=== PATIENT | male | born 1930 | race Caucasian/White ===

== ENCOUNTER 2017-02-03 07:50 | Emergency (ER) | payer MEDICARE, OTHER ==
[~2017-02-03] VITALS: Ht 180.3 cm; Wt 85.7 kg
[2017-02-03 08:30] LABS: BASOPHILS % (AUTO) 1 % (0-10); EOSINOPHILS # (AUTO) 0.3 10^3/uL (0.0-0.3); EOSINOPHILS % (AUTO) 5 % (0-10); LYMPHOCYTES # (AUTO) 1.1 X 10^3 (1.0-4.0); LYMPHOCYTES % (AUTO) 17 % (12-44); MEAN CORPUSCULAR HEMOGLOBIN 30 PG (25-34); MEAN CORPUSCULAR HGB CONC 34 G/DL (32-36); MEAN CORPUSCULAR VOLUME 87 FL (80-99); MEAN PLATELET VOLUME 8.6 FL (7.4-10.4); MONOCYTES # (AUTO) 0.4 X 10^3 (0.0-1.0); MONOCYTES % (AUTO) 7 % (0-12); NEUTROPHILS # (AUTO) 4.5 X 10^3 (1.8-7.8); NEUTROPHILS % (AUTO) 71 % (42-75); PLATELET COUNT 234 10^3/uL (130-400); RED BLOOD COUNT 4.27 10^6/uL (4.35-5.85); RED CELL DISTRIBUTION WIDTH 13.4 % (10.0-14.5); WHITE BLOOD COUNT 6.4 10^3/uL (4.3-11.0)
[2017-02-03 08:44] LABS: INR 1.1 (0.8-1.4)
[2017-02-03 08:53] LABS: ALANINE AMINOTRANSFERASE 21 U/L (0-55); ALBUMIN 3.5 G/DL (3.2-4.5); ANION GAP 10 MMOL/L (5-14); ASPARTATE AMINO TRANSFERASE 25 U/L (5-34); BILIRUBIN,TOTAL 0.6 MG/DL (0.1-1.0); BLOOD UREA NITROGEN 14 MG/DL (7-18); BUN/CREATININE RATIO 19; CALCIUM 9.1 MG/DL (8.5-10.1); CARBON DIOXIDE 27 MMOL/L (21-32); CHLORIDE 103 MMOL/L (98-107); CREATININE SERUM 0.74 MG/DL (0.60-1.30); GFR ESTIMATED > 60; GLUCOSE 104 MG/DL (70-105); POTASSIUM 3.2 MMOL/L (3.6-5.0); SODIUM 140 MMOL/L (135-145); TOTAL PROTEIN 6.6 G/DL (6.4-8.2)
--- NOTE | 2017-02-03 09:12 | Diagnostic Imaging Report ---
CLINICAL INDICATION: Patient complains of right-sided chest/rib pain. Patient states he fell while carrying a box. EXAM: Portable chest x-ray upright view. COMPARISON: None. FINDINGS: There is cardiomegaly. There is no significant pulmonary vascular congestion. There is suspected mild bibasilar atelectasis or scarring. There is minimal patchy airspace opacification overlying the right mid lung field, which may represent lung infiltrate or atelectasis or scarring. There is no pleural effusion or pneumothorax. There is no gross acute traumatic process seen. IMPRESSION: 1: Cardiomegaly with no significant pulmonary vascular congestion. 2: There is minimal airspace patchy opacification overlying the right mid lung field, which may represent lung infiltrate or atelectasis or scarring. 3: There is no gross acute traumatic process seen. Dictated by: Dictated on workstation # [id number]
[2017-02-03] MEDS: CATHETER FLUSH 10 ML SYR IV PRN (09:28)
[2017-02-03] MEDS: IOHEXOL 350 MG/ML 100 ML (OMNIPAQUE 350) VIAL IV ONE (09:28)
[2017-02-03] MEDS: NS 100 ML (IVPB) BAG IV ONE (09:28)
--- NOTE | 2017-02-03 09:37 | ED Fall/Injury ---
General Chief Complaint: Respiratory Problems Stated Complaint: SOA Nursing Triage Note: PT STATES HE FELL A COUPLE DAYS AGO WHILE CARRYING A BOX, CC OF SOB WITH RT RIB PAIN RATED AT 5. PT HAS BEEN ACTIVE AND DOING YARD WORK SINCE THE FALL. Source: patient Exam Limitations: no limitations History of Present Illness Time seen by provider: 07:59 Initial Comments This 86 year old presents to the emergency room with complaints of right upper quadrant pain after having a fall on Monday (4 days ago). He was carrying a box and fell onto the box. His pain has worsened since then. He also complains of pain with inspiration. This morning he woke and was dizzy upon rising, thinking he would pass out. He arrives with several family members. He also complains of soreness in the neck and shoulders. He denies hitting his head or injuring his neck. There was no loss of consciousness. He has no cervical tenderness to palpation. Patient does have atrial fibrillation for which he takes Eliquis. Allergies and Home Medications Allergies Coded Allergies: No Known Drug Allergies (Unverified , 02/03/17) Home Medications Hydrocodone/Acetaminophen 1 Each Tablet, 0.5-1 EACH PO Q6H PRN for PAIN, #10 Prescribed by: KY NAVARRO on 02/03/17 1203 Constitutional: no symptoms reported Eyes: No Symptoms Reported Ears, Nose, Mouth, Throat: no symptoms reported Respiratory: see HPI Cardiovascular: see HPI Gastrointestinal: see HPI Genitourinary: no symptoms reported Musculoskeletal: see HPI Skin: no symptoms reported Psychiatric/Neurological: No Symptoms Reported Past Ahjekky-Egdrai-Vyhszc Hx Patient Social History Recent Foreign Travel: No Contact w/Someone Who Travel: No Recent Infectious Disease Expo: No Surgeries HX Surgeries: Yes (dental surgery) Surgeries: Bladder Surgery (bladder stone removal), Eye Surgery (corneal transplants, cataracts), Gallbladder, Prostatectomy Respiratory Hx Respiratory Disorders: No Cardiovascular Hx Cardiac Disorders: Yes Cardiac Disorders: Atrial Fibrillation, High Cholesterol, Hypertension Neurological Hx Neurological Disorders: No Reproductive System Hx Reproductive Disorders: No Genitourinary Hx Genitourinary Disorders: Yes Genitourinary Disorders: Prostate Problems (prostate cancer, status post prostatectomy) Gastrointestinal Hx Gastrointestinal Disorders: No Musculoskeletal Hx Musculoskeletal Disorders: No Endocrine Hx Endocrine Disorders: No HEENT HX ENT Disorders: No Cancer Hx Cancer: No Psychosocial Hx Psychiatric Problems: No Integumentary HX Skin/Integumentary Disorder: No Physical Exam Vital Signs Vital Sign - Last 12Hours 02/03/17 07:59 Temp 97.9 Pulse 69 Resp 20 B/P (MAP) 157/90 Pulse Ox 96 O2 Delivery Room Air Capillary Refill : Less Than 3 Seconds General Appearance: WD/WN, no apparent distress HEENT: normal ENT inspection, pharynx normal, other Neck: non-tender, full range of motion, supple, normal inspection Cardiovascular: no edema, no murmur, irregularly irregular Respiratory: lungs clear, normal breath sounds, no respiratory distress, no accessory muscle use Gastrointestinal: normal bowel sounds, soft, tenderness (very tender throughout the abdomen especially in the right upper quadrant) Extremities: normal inspection, no pedal edema, pelvis stable Neurologic/Psychiatric: traffic control flagger II-XII nml as tested, no motor/sensory deficits, alert, normal mood/affect, oriented x 3 Skin: normal color, warm/dry Tyler Coma Score Best Eye Response: (4) Open Spontaneously Best Verbal Response: (5) Oriented Best Motor Response: (6) Obeys Commands [place] Total: 15 Progress/Results/Core Measures Results/Orders Lab Results Laboratory Tests Test 02/03/17 08:20 02/03/17 10:15 Range/Units White Blood Count 6.4 4.3-11.0 10^3/uL Red Blood Count 4.27 L 4.35-5.85 10^6/uL Hemoglobin 12.6 L 13.3-17.7 G/DL Hematocrit 37 L 40-54 % Mean Corpuscular Volume 87 80-99 FL Mean Corpuscular Hemoglobin 30 25-34 PG Mean Corpuscular Hemoglobin Concent 34 32-36 G/DL Red Cell Distribution Width 13.4 10.0-14.5 % Platelet Count 234 130-400 10^3/uL Mean Platelet Volume 8.6 7.4-10.4 FL Neutrophils (%) (Auto) 71 42-75 % Lymphocytes (%) (Auto) 17 12-44 % Monocytes (%) (Auto) 7 0-12 % Eosinophils (%) (Auto) 5 0-10 % Basophils (%) (Auto) 1 0-10 % Neutrophils # (Auto) 4.5 1.8-7.8 X 10^3 Lymphocytes # (Auto) 1.1 1.0-4.0 X 10^3 Monocytes # (Auto) 0.4 0.0-1.0 X 10^3 Eosinophils # (Auto) 0.3 0.0-0.3 10^3/uL Basophils # (Auto) 0.0 0.0-0.1 10^3/uL Prothrombin Time 14.0 12.2-14.7 SEC INR Comment 1.1 0.8-1.4 Activated Partial Thromboplast Time 33 24-35 SEC Sodium Level 140 135-145 MMOL/L Potassium Level 3.2 L 3.6-5.0 MMOL/L Chloride Level 103 98-107 MMOL/L Carbon Dioxide Level 27 21-32 MMOL/L Anion Gap 10 5-14 MMOL/L Blood Urea Nitrogen 14 7-18 MG/DL Creatinine 0.74 0.60-1.30 MG/DL Estimat Glomerular Filtration Rate > 60 BUN/Creatinine Ratio 19 Glucose Level 104 70-105 MG/DL Calcium Level 9.1 8.5-10.1 MG/DL Total Bilirubin 0.6 0.1-1.0 MG/DL Aspartate Amino Transf (AST/SGOT) 25 5-34 U/L Alanine Aminotransferase (ALT/SGPT) 21 0-55 U/L Alkaline Phosphatase 74 40-136 U/L Troponin I < 0.30 <0.30 NG/ML Total Protein 6.6 6.4-8.2 G/DL Albumin 3.5 3.2-4.5 G/DL Urine Color YELLOW Urine Clarity CLEAR Urine pH 8 5-9 Urine Specific [place] 1.010 L 1.016-1.022 Urine Protein 1+ H NEGATIVE Urine Glucose (UA) NEGATIVE NEGATIVE Urine Ketones NEGATIVE NEGATIVE Urine Nitrite NEGATIVE NEGATIVE Urine Bilirubin NEGATIVE NEGATIVE Urine Urobilinogen NORMAL NORMAL MG/DL Urine Leukocyte Esterase NEGATIVE NEGATIVE Urine RBC (Auto) 3+ H NEGATIVE Urine RBC 2-5 H /HPF Urine WBC NONE /HPF Urine Squamous Epithelial Cells 2-5 /HPF Urine Crystals NONE /LPF Urine Bacteria NEGATIVE /HPF Urine Casts NONE /LPF Urine Mucus NEGATIVE /LPF Urine Culture Indicated NO My Orders Orders - KY MANZO MD Cbc With Automated Diff (02/03/17 08:08) Comprehensive Metabolic Panel (02/03/17 08:08) Protime With Inr (02/03/17 08:08) Partial Thromboplastin Time (02/03/17 08:08) Ua Culture If Indicated (02/03/17 08:08) Saline Lock/Iv-Start (02/03/17 08:08) Ekg Tracing (02/03/17 08:08) Monitor-Rhythm Ecg Trace Only (02/03/17 08:08) Chest 1 View, Ap/Pa Only (02/03/17 08:08) Ct Chest/Abdomen/Pelvis W (02/03/17 09:02) Ns W/Kcl 20 Meq/L (Ns Iv W/Kcl 20 Meq/L) (02/03/17 09:15) Iohexol Injection (Omnipaque 350 Mg/Ml 1 (02/03/17 09:15) Sodium Chloride Flush (Catheter Flush Sy (02/03/17 09:15) Ns (Ivpb) (Sodium Chloride 0.9% Ivpb Bag (02/03/17 09:15) Troponin I (02/03/17 10:13) Medications Given in ED Current Medications Medications Dose Ordered Sig/Maylin Route Start Time Stop Time Status Last Admin Dose Admin Iohexol 100 ml ONCE ONCE IV 02/03/17 09:15 02/03/17 09:17 DC 02/03/17 09:28 100 ML Sodium Chloride 10 ml NEEDED PRN IV 02/03/17 09:15 02/03/17 15:32 DC 02/03/17 09:28 10 ML Sodium Chloride 100 ml ONCE ONCE IV 02/03/17 09:15 02/03/17 09:17 DC 02/03/17 09:28 80 ML Vital Signs/I&O Vital Sign - Last 12Hours 02/03/17 02/03/17 07:59 12:12 Temp 97.9 97.9 Pulse 69 70 Resp 20 20 B/P (MAP) 157/90 Pulse Ox 96 97 O2 Delivery Room Air Blood Pressure Mean: 112 Progress Note : Progress Note Patient received a liter of normal saline with 20 mEq of potassium. He felt better upon standing after IV hydration. Incidental findings on CT scan were discussed. Patient was advised to follow closely with his urologist regarding the bladder wall thickness. The pericardial finding is chronic when compared to prior imaging. No definite etiology for patient's abdominal pain was found. CT imaging was discussed with Dr. Bowling and with the radiologist. No indication for admission or surgical intervention was found. There was question of constipation based on stool burden but patient states he has actually had diarrhea the past few days. Patient was dismissed home into the care of his family. A CD of his images was given upon dismissal for presentation to his urologist. ECG Initial ECG Impression Date: Feb 03, 2017 Initial ECG Impression Time: 09:45 Initial ECG Rate: 70 Initial ECG Rhythm: A Fib/Flutter Comment Atrial fibrillation with no ST elevation or depression. Right bundle branch block. PVCs noted. No prior for comparison. Diagnostic Imaging Diagonstic Imaging: Xray Plain Films/CT/US/NM/MRI: chest Comments Chest x-ray viewed by me and report reviewed. See report below: NAME: ANABEL DE LA CRUZ MED REC#: [id number] PT STATUS: REG ER : 1930 PHYSICIAN: KY MANZO MD ADMIT DATE: 02/03/17/ER Draft Date of Exam:02/03/17 CHEST 1 VIEW, AP/PA ONLY CLINICAL INDICATION: Patient complains of right-sided chest/rib pain. Patient states he fell while carrying a box. EXAM: Portable chest x-ray upright view. COMPARISON: None. FINDINGS: There is cardiomegaly. There is no significant pulmonary vascular congestion. There is suspected mild bibasilar atelectasis or scarring. There is minimal patchy airspace opacification overlying the right mid lung field, which may represent lung infiltrate or atelectasis or scarring. There is no pleural effusion or pneumothorax. There is no gross acute traumatic process seen. IMPRESSION: 1: Cardiomegaly with no significant pulmonary vascular congestion. 2: There is minimal airspace patchy opacification overlying the right mid lung field, which may represent lung infiltrate or atelectasis or scarring. 3: There is no gross acute traumatic process seen. Dictated on workstation # [id number] Dict: 02/03/17 0857 Trans: 02/03/17 0911 [facility] [id number] Interpreted by: SOURAV DU MD Diagonstic Imaging: CT Plain Films/CT/US/NM/MRI: chest, abdomen, pelvis Comments CT chest, abdomen and pelvis viewed by me and report reviewed. See report below : NAME: ANABEL DE LA CRUZ MED REC#: [id number] PT STATUS: REG ER : 1930 PHYSICIAN: KY MANZO MD ADMIT DATE: 02/03/17/ER Draft Date of Exam:02/03/17 CT CHEST/ABDOMEN/PELVIS W PROCEDURE: CT chest, abdomen, and pelvis with contrast. TECHNIQUE: Multiple contiguous axial images were obtained through the chest, abdomen, and pelvis after the administration of intravenous contrast. INDICATION: Recent fall now with right-sided pain. Difficulty breathing. History of prostate cancer. Comparison: 05/26/2016 and 07/09/2014 FINDINGS: CT chest: Cardio mediastinal structures show moderate cardio megaly. There is calcified aortic and coronary atherosclerosis. Note is made of focal prominence of pericardial fluid versus pericardial cyst on the right. It measures 5.8 x 3.5 cm. This is increased compared to 5.1 x 2.9 cm, otherwise has a persistent simple appearance. Multiple calcified bilateral hilar and mediastinal lymph nodes are noted. No pathologically enlarged or morphologically abnormal adenopathy is seen. Lung windows show small right effusion. There is no pneumothorax on either side. A few scattered calcified pulmonary parenchyma granuloma are also noted. Small noncalcified subpleural micronodule is noted within the lateral margins of the left upper lobe just anterior to the major fissure. This is stable compared to 07/09/2014. Evaluation for additional micronodule is somewhat suboptimal given the bilateral dependent posterior atelectasis, but aerated portions of the lungs show no discrete pulmonary parenchymal masses. Evaluation of osseous structures demonstrates compression deformities of the superior endplates of the T9 and T11 vertebral bodies. T11 is stable compared to 05/26/2016. The T9 level is not well visualized on prior exams. CT abdomen: There is colonic diverticulosis, no CT evidence of acute diverticulitis. Small bowel loops are nondistended. Normal appendix is identified. Benign left renal cyst is noted. Otherwise, the kidneys, adrenal glands, spleen, and pancreas have a normal CT appearance. There is prominence of the intra-and extra hepatic biliary ductal system. Patient is however status post previous cholecystectomy. Small hypodensity is noted within the anterior margins of segment IVb. This is stable compared to 07/09/2014. Otherwise, liver is unremarkable as well. There is no loculated fluid collection, free fluid, nor free air within the abdomen. No abnormal mesenteric or retroperitoneal adenopathy is seen. There is diffuse calcified aortic and coronary atherosclerosis. Bony structures show no acute abnormalities. CT pelvis: Urinary bladder wall is moderately thickened. Bulky calcification is again noted on the right. There is rounded soft tissue prominent appearance anteriorly. There is trace free fluid within the pelvis. There is no loculated fluid collection or free air. No abnormal lymph nodes are seen. Bony structures show no acute abnormalities. IMPRESSION: 1. Small amount of free fluid within the lower pelvis. Exact etiology is indeterminate, but should be considered abnormal in a male patient. The fluid is of low density. Hemoperitoneum is felt to be unlikely. 2. Cardiomegaly. 3. Small right effusion. 4. Focal prominence of pericardial fluid the right lateral heart versus pericardial cyst. 5. Colonic diverticulosis, but no CT evidence of acute diverticulitis. 6. Simple appearing left renal cyst. 7. Thickened appearance of the urinary bladder wall with more masslike area seen anteriorly near the dome. This may be artifact, but one cannot exclude underlying neoplasm. Correlation with direct visualization is recommended. Dictated on workstation # [id number] Dict: 02/03/17 0942 Trans: 02/03/17 1003 [facility] [id number] Interpreted by: LUCAS GILLESPIE Departure Impression Impression: Primary Impression: Fall on same level Qualified Codes: W18.30XA - Fall on same level, unspecified, initial encounter Additional Impressions: Hypokalemia Abdominal wall pain Lightheadedness Chronic anticoagulation Bladder wall thickening Pericardial cyst Disposition: 01 HOME, SELF-CARE Condition: Improved Departure-Patient Inst. Decision time for Depature: 12:00 Referrals: STEFANO ARREAGA DO (PCP/Family) Primary Care Physician Patient Instructions: Hypokalemia Add. Discharge Instructions: You may use the hydrocodone pain medication as prescribed. Please be aware this may cause constipation. Use a stool softener and/or MiraLAX (generic is polyethylene glycol) as needed for constipation. Follow-up with your urologist as soon as possible regarding the CT findings. Take the CD of your CT images with you. Drink plenty of clear liquids to stay well-hydrated. Eat a well-balanced diet. Follow-up with your primary care provider soon as possible. Return to the emergency room if symptoms worsen. All discharge instructions reviewed with patient and/or family. Voiced understanding. Scripts Hydrocodone/Acetaminophen (Hydrocodon -Acetaminophen 5-325) 1 Each Tablet 0.5-1 EACH PO Q6H Y for PAIN, #10 TAB Prov: KY MANZO MD 02/03/17 Copy Copies To 1: STEFANO ARREAGA JOSHUA T MD Feb 03, 2017 09:37
[2017-02-03] MEDS: NS W/KCL 20 MEQ/L 1,000 ML IV SCH (09:46)
--- NOTE | 2017-02-03 10:04 | Diagnostic Imaging Report ---
PROCEDURE: CT chest, abdomen, and pelvis with contrast. TECHNIQUE: Multiple contiguous axial images were obtained through the chest, abdomen, and pelvis after the administration of intravenous contrast. INDICATION: Recent fall now with right-sided pain. Difficulty breathing. History of prostate cancer. Comparison: 05/26/2016 and 07/09/2014 FINDINGS: CT chest: Cardio mediastinal structures show moderate cardio megaly. There is calcified aortic and coronary atherosclerosis. Note is made of focal prominence of pericardial fluid versus pericardial cyst on the right. It measures 5.8 x 3.5 cm. This is increased compared to 5.1 x 2.9 cm, otherwise has a persistent simple appearance. Multiple calcified bilateral hilar and mediastinal lymph nodes are noted. No pathologically enlarged or morphologically abnormal adenopathy is seen. Lung windows show small right effusion. There is no pneumothorax on either side. A few scattered calcified pulmonary parenchyma granuloma are also noted. Small noncalcified subpleural micronodule is noted within the lateral margins of the left upper lobe just anterior to the major fissure. This is stable compared to 07/09/2014. Evaluation for additional micronodule is somewhat suboptimal given the bilateral dependent posterior atelectasis, but aerated portions of the lungs show no discrete pulmonary parenchymal masses. Evaluation of osseous structures demonstrates compression deformities of the superior endplates of the T9 and T11 vertebral bodies. T11 is stable compared to 05/26/2016. The T9 level is not well visualized on prior exams. CT abdomen: There is colonic diverticulosis, no CT evidence of acute diverticulitis. Small bowel loops are nondistended. Normal appendix is identified. Benign left renal cyst is noted. Otherwise, the kidneys, adrenal glands, spleen, and pancreas have a normal CT appearance. There is prominence of the intra-and extra hepatic biliary ductal system. Patient is however status post previous cholecystectomy. Small hypodensity is noted within the anterior margins of segment IVb. This is stable compared to 07/09/2014. Otherwise, liver is unremarkable as well. There is no loculated fluid collection, free fluid, nor free air within the abdomen. No abnormal mesenteric or retroperitoneal adenopathy is seen. There is diffuse calcified aortic and coronary atherosclerosis. Bony structures show no acute abnormalities. CT pelvis: Urinary bladder wall is moderately thickened. Bulky calcification is again noted on the right. There is rounded soft tissue prominent appearance anteriorly. There is trace free fluid within the pelvis. There is no loculated fluid collection or free air. No abnormal lymph nodes are seen. Bony structures show no acute abnormalities. IMPRESSION: 1. Small amount of free fluid within the lower pelvis. Exact etiology is indeterminate, but should be considered abnormal in a male patient. The fluid is of low density. Hemoperitoneum is felt to be unlikely. 2. Cardiomegaly. 3. Small right effusion. 4. Focal prominence of pericardial fluid the right lateral heart versus pericardial cyst. 5. Colonic diverticulosis, but no CT evidence of acute diverticulitis. 6. Simple appearing left renal cyst. 7. Thickened appearance of the urinary bladder wall with more masslike area seen anteriorly near the dome. This may be artifact, but one cannot exclude underlying neoplasm. Correlation with direct visualization is recommended. 8. Indeterminate compression deformity of T9. If there is concern for acute compression fracture, MRI is recommended. 9. Nonacute compression deformity of T11. Dictated by: Dictated on workstation # [id number]
[2017-02-03 10:28] LABS: BILIRUBIN,URINE NEGATIVE (NEGATIVE); KETONES,URINE NEGATIVE (NEGATIVE); LEUKOCYTE ESTERASE ,URINE NEGATIVE (NEGATIVE); NITRITE,URINE NEGATIVE (NEGATIVE); PH,URINE 8 (5-9); PROTEIN,URINE 1+ (NEGATIVE); UROBILINOGEN,URINE NORMAL (NORMAL)
[2017-02-03] MEDS ORDERED: HYDR-3812 PO (12:03)
[2017-02-03 12:12] VITALS: BP 145/87
== END 2017-02-03 12:12 | disposition home or self-care (01) ==
LOC: EDUNIT# 07:50 → ER 07:52
DX: S39.91XA Unspecified injury of abdomen, initial encounter (principal); R10.11 Right upper quadrant pain; E87.6 Hypokalemia; R42 Dizziness and giddiness; I31.8 Other specified diseases of pericardium; N32.9 Bladder disorder, unspecified; N20.0 Calculus of kidney; I51.7 Cardiomegaly; I45.10 Unspecified right bundle-branch block; I48.2 Chronic atrial fibrillation; K57.30 Diverticulosis of large intestine without perforation or abscess without bleeding; Z79.01 Long term (current) use of anticoagulants; W18.09XA Striking against other object with subsequent fall, initial encounter; Y92.009 Unspecified place in unspecified non-institutional (private) residence as the place of occurrence of the external cause; Y99.8 Other external cause status
CPT/HCPCS: 36415; 71010; 71260; 74177; 80053; 81000; 84484; 85025; 85610; 85730; 93041

== ENCOUNTER → 2017-03-02 | Outpatient (CLI) | payer MEDICARE, OTHER ==
[~2017-03-02] MED LIST: HYDR-3812 PO
--- NOTE | 2017-03-02 18:56 | Diagnostic Imaging Report ---
EXAMINATION: Whole body bone scan. TECHNIQUE: After the intravenous administration of 25.6 mCi of Technetium 99m MDP, whole body delayed phase bone scan images were obtained with lateral views of the head and neck and the chest regions. INDICATION: Prostate cancer. FINDINGS: There is moderate increased activity seen in the adjacent right ribs, anteriorly, which appear to involve the third, fourth, fifth and sixth right ribs. This is probably a traumatic pattern of uptake. Correlation with the 02/03/2017 CT scan demonstrates no definite rib fractures. This is still favored to be traumatic related, possibly related to occult fractures or injury happening after that CT was obtained. The spine demonstrates only mild the activity in the cervical segments and around the thoracolumbar junction, probably degenerative. Other degenerative activity in joints is seen. There is urinary tract excretion noted. IMPRESSION: Moderate foci of activity along the anterior mid right ribs is favored to be posttraumatic related. Dictated by: Dictated on workstation # [id number]
== END ==
LOC: CARD 11:57
DX: C61 Malignant neoplasm of prostate (principal)
CPT/HCPCS: 78306

== ENCOUNTER → 2018-05-11 | Outpatient (CLI) | payer MEDICARE, OTHER ==
[~2018-05-11] MED LIST changes: +ACHD5005 PO; -HYDR-3812 PO
--- NOTE | 2018-05-11 12:11 | Diagnostic Imaging Report ---
INDICATION: Abdominal pain and diarrhea. Supine upright abdominal films are obtained at 12:02 p.m. FINDINGS: There is no evidence of free intraperitoneal air. There is gas distention of large and small bowel loops with scattered fluid levels in small bowel, findings may represent gastroenteritis. Suggest followup as clinically warranted. There is gas throughout the colon down to the rectum. IMPRESSION: No evidence of free air. There is gas and fluid levels in large and small bowel, probably secondary to gastroenteritis or ileus. There is no definite obstruction. Consider followup as clinically warranted. Dictated by: Dictated on workstation # [id number]
--- NOTE | 2018-05-11 12:23 | Diagnostic Imaging Report ---
INDICATION: Left upper quadrant pain. Sonographic interrogation of left quadrant was performed. Spleen measures 7.3 x 3.7 x 3.5 cm, within normal limits. Left kidney measures 10.7 x 5.8 x 5.1 cm. There is a cyst involving the left kidney measuring 4.6 x 3.0 x 3.8 cm. No calculi or hydronephrosis is identified. There is no ascites. IMPRESSION: Left renal cyst. No other significant abnormality is detected. Dictated by: Dictated on workstation # [id number]
== END ==
LOC: RAD 11:06
PROVIDERS: ATTEND Nurse Practitioner Family
DX: N28.1 Cyst of kidney, acquired (principal); R19.7 Diarrhea, unspecified
CPT/HCPCS: 74019; 76705

== ENCOUNTER 2018-10-23 11:06 | Observation (INO) | payer MEDICARE, OTHER | END 2018-10-24 15:35 | disposition home or self-care (01) | LOC: 4TH 11:06 ==

== ENCOUNTER → 2020-01-31 | Outpatient (CLI) | payer MEDICARE ==
[~2020-01-31] MED LIST changes: +AMLO10TA7 PO; +APIX5TAB PO; +ASPI-808 PO; +BARIUM SUSPENSION 2.1% (VANILLA SILQ) 450 ML PO ONE; +BICA50TA5 PO; +CALC-6 PO; +CATHETER FLUSH 10 ML SYR IV PRN; +DOXY25TA50 PO; +FOSI40TA5 PO; +GLUC1CAP14 PO; +HOLD METFORMIN - RECEIVED CONTRAST 20 ML VIAL IV SCH; +HYDR25TA4 PO; +IOHEXOL 350 MG/ML 100 ML (OMNIPAQUE 350) VIAL IV ONE; +MULT1TAB69 PO; +NAPR220T66 PO; +NIAC500T24 PO; +NS 100 ML (IVPB) BAG IV ONE; +OMEP20CA18 PO; +POTA99TA21 PO; +PRED5DRO24 OU; +SIMV80TA21 PO; +TROS20TA3 PO
--- NOTE | 2020-01-31 10:15 | Diagnostic Imaging Report ---
PROCEDURE: CT abdomen and pelvis with and without contrast. TECHNIQUE: Precontrast acquisitions were acquired through the abdomen and pelvis. Multiple contiguous axial images were obtained through the abdomen and pelvis after the administration of intravenous contrast. Auto Exposure Controls were utilized during the CT exam to meet ALARA standards for radiation dose reduction. INDICATION: Prostate carcinoma, on immunotherapy. Correlation is made with prior CT from 02/03/2017. Imaging through the lung bases demonstrates minimal linear scarring or atelectasis bilateral lower lobes. Small cystic collection adjacent to the right heart is again noted but not entirely included on today's study. Small probable cyst in the liver is slightly larger at 12 mm compared with 10 mm. No new liver mass is detected. Gallbladder surgically absent. The bile ducts remain somewhat prominent but similar to prior exam. Pancreas and spleen are unremarkable. No adrenal mass is detected. Right kidney is unremarkable. Left kidney again demonstrates a cyst in the lower pole 3.9 cm compared with 3.4 cm. Aorta is heavily calcified but non-aneurysmal. No central retroperitoneal or mesenteric lymphadenopathy is identified. Small and large bowel loops appear nonobstructed. There is diverticulosis of the sigmoid and descending colon but no evidence of acute diverticulitis. No free fluid in the abdomen or pelvis is identified on today's exam. The bladder is decompressed. There is some trabeculation to the bladder. Calcification right aspect of the urinary bladder is again noted. Previously noted masslike density on prior CT is not appreciated on today's exam. No definite pelvic lymphadenopathy is detected. Bony structures are nonacute. IMPRESSION: 1. Slight increase in size of hepatic and left renal cysts when compared with study from 2017. No abdominal or pelvic lymphadenopathy or evidence of metastatic disease is detected. 2. Uncomplicated diverticulosis. 3. Bladder calculus and trabeculation with some generalized wall thickening. A discrete mass is not detected on today's study. Dictated by: Dictated on workstation # [id number]
--- NOTE | 2020-01-31 13:27 | Diagnostic Imaging Report ---
INDICATION: Prostate carcinoma. TECHNIQUE: Patient was administered 25.8 mCi technetium-99m MDP intravenously and whole-body imaging was performed after three-hour delay. COMPARISON: Correlation is made with prior whole-body bone scan from 03/02/2017. FINDINGS: There is normal uptake of activity by the axial and appendicular skeleton. There is uptake by the kidneys with excretion into the urinary bladder. Previously noted abnormal uptake involving right-sided ribs has resolved. No suspicious foci are seen to suggest osseous metastatic disease. IMPRESSION: No scintigraphic evidence of osseous metastatic disease. Dictated by: Dictated on workstation # [id number]
== END ==
LOC: CARD 08:54
PROVIDERS: ATTEND Urology
DX: C61 Malignant neoplasm of prostate (principal); K80.20 Calculus of gallbladder without cholecystitis without obstruction; N28.1 Cyst of kidney, acquired; K76.89 Other specified diseases of liver
CPT/HCPCS: 74178; 78306

== ENCOUNTER 2020-08-23 19:32 | Emergency (ER) | payer MEDICARE, OTHER ==
[~2020-08-23] VITALS: Ht 180.3 cm; Wt 81.2 kg
[~2020-08-23 19:32] MED LIST changes: +AMLO-251 PO; -AMLO10TA7 PO; -BARIUM SUSPENSION 2.1% (VANILLA SILQ) 450 ML PO ONE; -CALC-6 PO; +CALC1TAB84 PO; -CATHETER FLUSH 10 ML SYR IV PRN; -HOLD METFORMIN - RECEIVED CONTRAST 20 ML VIAL IV SCH; -IOHEXOL 350 MG/ML 100 ML (OMNIPAQUE 350) VIAL IV ONE; +MULT-567 PO; -MULT1TAB69 PO; -NS 100 ML (IVPB) BAG IV ONE
[2020-08-23] MEDS ORDERED: NS IV 1000 ML 1,000 ML IV SCH (20:15)
[2020-08-23 20:23] LABS: BASOPHILS # (AUTO) 0.1 10^3/uL (0.0-0.1); BASOPHILS % (AUTO) 0 % (0-10); EOSINOPHILS # (AUTO) 0.2 10^3/uL (0.0-0.3); EOSINOPHILS % (AUTO) 1 % (0-10); HEMATOCRIT 45 % (40-54); HEMOGLOBIN 14.9 g/dL (13.3-17.7); LYMPHOCYTES # (AUTO) 1.2 10^3/uL (1.0-4.0); LYMPHOCYTES % (AUTO) 9 % (12-44); MEAN CORPUSCULAR HEMOGLOBIN 30 pg (25-34); MEAN CORPUSCULAR HGB CONC 33 g/dL (32-36); MEAN CORPUSCULAR VOLUME 91 fL (80-99); MEAN PLATELET VOLUME 8.8 fL (9.0-12.2); MONOCYTES # (AUTO) 0.5 10^3/uL (0.0-1.0); MONOCYTES % (AUTO) 4 % (0-12); NEUTROPHILS % (AUTO) 85 % (42-75); PLATELET COUNT 320 10^3/uL (130-400); WHITE BLOOD COUNT 12.9 10^3/uL (4.3-11.0)
[2020-08-23 20:24] LABS: ALBUMIN 3.7 GM/DL (3.2-4.5); CHLORIDE 99 MMOL/L (98-107); POTASSIUM 3.8 MMOL/L (3.6-5.0); SODIUM 135 MMOL/L (135-145)
[2020-08-23 20:26] LABS: CALCIUM 9.5 MG/DL (8.5-10.1)
[2020-08-23 20:27] LABS: GLUCOSE 228 MG/DL (70-105); TOTAL PROTEIN 6.9 GM/DL (6.4-8.2)
[2020-08-23 20:28] LABS: CARBON DIOXIDE 23 MMOL/L (21-32)
[2020-08-23 20:29] LABS: BILIRUBIN,TOTAL 0.5 MG/DL (0.1-1.0)
[2020-08-23 20:30] LABS: ALKALINE PHOSPHATASE 56 U/L (40-136); CREATININE SERUM 0.91 MG/DL (0.60-1.30); GFR ESTIMATED > 60
[2020-08-23] MEDS ORDERED: LOPERAMIDE 2 MG (IMODIUM) TABLET PO ONE (20:30)
[2020-08-23 20:31] LABS: BUN/CREATININE RATIO 16
[2020-08-23 20:33] LABS: ALANINE AMINOTRANSFERASE 12 U/L (0-55)
[2020-08-23 21:19] LABS: BILIRUBIN,URINE NEGATIVE (NEGATIVE); CLARITY,URINE SL CLOUDY; COLOR,URINE YELLOW; GLUCOSE, URINE (UA) NEGATIVE (NEGATIVE); KETONES,URINE NEGATIVE (NEGATIVE); LEUKOCYTE ESTERASE ,URINE NEGATIVE (NEGATIVE); NITRITE,URINE NEGATIVE (NEGATIVE); PH,URINE 5.5 (5-9); PROTEIN,URINE TRACE (NEGATIVE)
[2020-08-23 21:27] LABS: BACTERIA,URINE NEGATIVE /HPF; RBC,URINE RARE /HPF
[2020-08-23 21:30] VITALS: BP 121/73
--- NOTE | 2020-08-23 21:51 | ED GI ---
General Chief Complaint: Abdominal/GI Problems Stated Complaint: DIARRHEA; ABD BLOATING Nursing Triage Note: PT AMBULATES TO ROOM #7 WITH C/O NAUESA, DIARRHEA, ET BILAT LOWER ABD DISCOMFORT. REPORTS S/S BEGAN ON THIS DAY AT APPROX 1500 AFTER EATING LETTUCE FOR LUNCH. DENIES FEVER, CHILLS, COUGH, CONGESTION, OR SOA. DENIES ANY KNOWN COVID-19 EXPOSURE. A&OX4. Sepsis Screen: No Definite Risk History of Present Illness Date Seen by Provider: Aug 23, 2020 Time Seen by Provider: 19:50 Initial Comments 89-year-old male reports that approximately 1500 he began having diarrhea, he had had lettuce for lunch. Since his laparoscopic cholecystectomy he has issues with lettuce. He had approximately 6-7 loose stools and was concerned about dehydration. He has been taking sips of Sprite. He denies any nausea. He has not taken any medication for diarrhea. He denies any abdominal pain. He is on Eliquis, he has not noted any blood in his stool. Timing/Duration: 4-6 Hours Severity/Quality: Moderate Associated Symptoms: No Back Pain, No Chest Pain, No Fever/Chills; Fatigue; No Headache, No Heartburn, No Nausea/Vomiting, No Shortness of Air, No Weakness Allergies and Home Medications Allergies Coded Allergies: No Known Drug Allergies (Unverified , 10/23/18) Home Medications Amlodipine Besylate 10 Mg Tablet, 10 MG PO DAILY, (Reported) Apixaban 5 Mg Tablet, 5 MG PO BID, (Reported) Bicalutamide 50 Mg Tablet, 50 MG PO DAILY, (Reported) Calcium Carbonate/Vitamin D3 1 Each Tablet, 1 TAB PO DAILY, (Reported) Fosinopril Sodium 40 Mg Tablet, 20 MG PO DAILY, (Reported) TAKES 1/2 (40MG) TABLET Gluc HCl/Csa/Osmin Hy/Hyalur AC 1 Each Capsule, 1 CAP PO DAILY, (Reported) Hydrochlorothiazide 25 Mg Tablet, 25 MG PO Q48H, (Reported) Multivitamin 1 Each Tablet, 1 TAB PO DAILY, (Reported) Omeprazole 20 Mg Capsule.dr, 40 MG PO DAILY, (Reported) TAKES 2 (20MG) CAPSULES Potassium Gluconate 99 Mg Tablet, 99 MG PO DAILY, (Reported) Prednisolone Acetate/Pf 5 Ml Drops.susp, 1 DROP OU BID, (Reported) Simvastatin 80 Mg Tablet, 40 MG PO HS, (Reported) TAKES 1/2 (80MG) TABLET Trospium Chloride 20 Mg Tablet, 20 MG PO HS, (Reported) Patient Home Medication List Home Medication List Reviewed: Yes Review of Systems Review of Systems Constitutional: no symptoms reported, see HPI Gastrointestinal: See HPI; Denies Abdominal Pain, Denies Constipated; Diarrhea; Denies Nausea, Denies Rectal Bleeding, Denies Vomiting All Other Systems Reviewed Negative Unless Noted: Yes Past Kmhohga-Rekwbc-Smcidr Hx Past Med/Social Hx: Reviewed Nursing Past Med/Soc Hx Patient Social History Alcohol Use: Denies Use Number of Drinks Today: GG Alcohol Beverage of Choice: Whiskey Recreational Drug Use: No Smoking Status: Never a Smoker 2nd Hand Smoke Exposure: No Recent Foreign Travel: No Contact w/Someone Who Travel: No Recent Infectious Disease Expo: No Recent Hopitalizations: No Immunizations Up To Date Tetanus Booster (TDap): Unknown Date of Pneumonia Vaccine: Jun 21, 2018 Date of Influenza Vaccine: Jun 21, 2018 Seasonal Allergies Seasonal Allergies: No Past Medical History Surgeries: Yes (dental surgery, kidney stones) Bladder Surgery, Eye Surgery, Gallbladder, Prostatectomy Respiratory: No Currently Using CPAP: No Currently Using BIPAP: No Cardiac: Yes (disputed irregular heart beat) Atrial Fibrillation, High Cholesterol, Hypertension Neurological: No Reproductive Disorders: No Sexually Transmitted Disease: No HIV/AIDS: No Genitourinary: Yes Benign Prostatic Hyperpl, Prostate Problems, Kidney Stones Gastrointestinal: No Gastroesophageal Reflux, Chronic Diarrhea, Irritable Bowel Musculoskeletal: Yes Arthritis Endocrine: No 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 Hearing Impairment: Hard of Hearing Cancer: Yes Prostate Did You Recieve Any Treatments: Yes What Type of Treatment Did You: Chemotherapy, Radiation, Surgical Intervention Psychosocial: No Integumentary: No Adverse Reaction/Blood Tranf: No Family Medical History FHx: heart disease Heart G8 BROTHER G8 SISTER Myocardial infarction 19 FATHER 19 MOTHER G8 BROTHER G8 SISTER Physical Exam Vital Signs Vital Signs - First Documented 08/23/20 19:50 Temp 35.8 Pulse 90 Resp 18 B/P (MAP) 125/87 (100) Pulse Ox 97 O2 Delivery Room Air Capillary Refill : Less Than 3 Seconds Height/Weight/BMI Height: 5'10.00" Weight: 177lbs. 8.0oz. [id number]; 24.00 BMI Method:Stated General Appearance: WD/WN, no apparent distress HEENT: PERRL/EOMI, normal ENT inspection, pharynx normal, other (Oral mucosa pink and moist) Neck: non-tender, full range of motion, supple, normal inspection Respiratory: chest non-tender, lungs clear, normal breath sounds Cardiovascular: normal peripheral pulses, regular rate, rhythm Gastrointestinal: normal bowel sounds, non tender, soft; No distended, No guarding, No rebound, No tenderness Extremities: normal range of motion, non-tender, normal capillary refill, pedal edema (1+) Back: normal inspection, no CVA tenderness, no vertebral tenderness Neurologic/Psychiatric: no motor/sensory deficits, alert, normal mood/affect, oriented x 3 Skin: normal color, warm/dry Progress/Results/Core Measures Results/Orders Lab Results Laboratory Tests Test 08/23/20 19:56 08/23/20 21:10 Range/Units White Blood Count 12.9 H 4.3-11.0 10^3/uL Red Blood Count 4.98 4.30-5.52 10^6/uL Hemoglobin 14.9 13.3-17.7 g/dL Hematocrit 45 40-54 % Mean Corpuscular Volume 91 80-99 fL Mean Corpuscular Hemoglobin 30 25-34 pg Mean Corpuscular Hemoglobin Concent 33 32-36 g/dL Red Cell Distribution Width 13.5 10.0-14.5 % Platelet Count 320 130-400 10^3/uL Mean Platelet Volume 8.8 L 9.0-12.2 fL Immature Granulocyte % (Auto) 0 % Neutrophils (%) (Auto) 85 H 42-75 % Lymphocytes (%) (Auto) 9 L 12-44 % Monocytes (%) (Auto) 4 0-12 % Eosinophils (%) (Auto) 1 0-10 % Basophils (%) (Auto) 0 0-10 % Neutrophils # (Auto) 11.0 H 1.8-7.8 10^3/uL Lymphocytes # (Auto) 1.2 1.0-4.0 10^3/uL Monocytes # (Auto) 0.5 0.0-1.0 10^3/uL Eosinophils # (Auto) 0.2 0.0-0.3 10^3/uL Basophils # (Auto) 0.1 0.0-0.1 10^3/uL Immature Granulocyte # (Auto) 0.0 0.0-0.1 10^3/uL Sodium Level 135 135-145 MMOL/L Potassium Level 3.8 3.6-5.0 MMOL/L Chloride Level 99 98-107 MMOL/L Carbon Dioxide Level 23 21-32 MMOL/L Anion Gap 13 5-14 MMOL/L Blood Urea Nitrogen 15 7-18 MG/DL Creatinine 0.91 0.60-1.30 MG/DL Estimat Glomerular Filtration Rate > 60 BUN/Creatinine Ratio 16 Glucose Level 228 H 70-105 MG/DL Calcium Level 9.5 8.5-10.1 MG/DL Corrected Calcium 9.7 8.5-10.1 MG/DL Total Bilirubin 0.5 0.1-1.0 MG/DL Aspartate Amino Transf (AST/SGOT) 23 5-34 U/L Alanine Aminotransferase (ALT/SGPT) 12 0-55 U/L Alkaline Phosphatase 56 40-136 U/L Total Protein 6.9 6.4-8.2 GM/DL Albumin 3.7 3.2-4.5 GM/DL Urine Color YELLOW Urine Clarity SL CLOUDY Urine pH 5.5 5-9 Urine Specific [place] >=1.030 1.016-1.022 Urine Protein TRACE H NEGATIVE Urine Glucose (UA) NEGATIVE NEGATIVE Urine Ketones NEGATIVE NEGATIVE Urine Nitrite NEGATIVE NEGATIVE Urine Bilirubin NEGATIVE NEGATIVE Urine Urobilinogen 0.2 < = 1.0 MG/DL Urine Leukocyte Esterase NEGATIVE NEGATIVE Urine RBC (Auto) TRACE-I NEGATIVE Urine RBC RARE /HPF Urine WBC NONE /HPF Urine Squamous Epithelial Cells NONE /HPF Urine Crystals NONE /LPF Urine Bacteria NEGATIVE /HPF Urine Casts PRESENT /LPF Urine Hyaline Casts 2-5 H /LPF Urine Mucus NEGATIVE /LPF Urine Culture Indicated NO My Orders Orders - LIBRADO CHOPRA Ua Culture If Indicated (08/23/20 19:51) Cbc With Automated Diff (08/23/20 20:03) Comprehensive Metabolic Panel (08/23/20 20:03) Ed Iv/Invasive Line Start (08/23/20 20:03) Ns Iv 1000 Ml (Sodium Chloride 0.9%) (08/23/20 20:15) Loperamide Tablet (Imodium Tablet) (08/23/20 20:30) Medications Given in ED Current Medications Medications Dose Ordered Sig/Maylin Route Start Time Stop Time Status Last Admin Dose Admin Loperamide HCl 4 mg ONCE ONCE PO 08/23/20 20:30 08/23/20 20:31 DC 08/23/20 20:44 4 MG Vital Signs/I&O 08/23/20 19:50 Temp 35.8 Pulse 90 Resp 18 B/P (MAP) 125/87 (100) Pulse Ox 97 O2 Delivery Room Air Blood Pressure Mean: 100 Progress Progress Note : Time: 19:50 Progress Note Patient seen and evaluated, will obtain labs, normal saline 1 L per IV, Imodium 4 mg. 2029 patient denies any abdominal pain, no diarrhea since admission. IV infusing. Updated daughter per phone. 2114 patient denies diarrhea, no abdominal pain. Discharge instructions and return precautions reviewed with the patient. Departure Impression Primary Impression: Diarrhea Qualified Codes: R19.7 - Diarrhea, unspecified Disposition: HOME, SELF-CARE Condition: Improved Departure-Patient Inst. Decision time for Depature: 21:15 Referrals: STEFANO ARREAGA DO (PCP/Family) Primary Care Physician Patient Instructions: Diarrhea and Travelers' Diarrhea, Adult (DC) Add. Discharge Instructions: Clear liquid diet for the next 4 hours then bland diet as tolerated. Avoid any fried, spicy or greasy foods for the next 24 to 48 hours. Avoid lettuce. Take Imodium every 4-6 hours as needed for diarrhea. Follow-up with your primary care provider if symptoms are not improving or worsen. Return to the emergency department for persistent diarrhea, abdominal pain, or fever greater than 101 degrees. All discharge instructions reviewed with patient and/or family. Voiced understanding. Copy Copies To 1: STEFANO ARREAGA AMY ARNP Aug 23, 2020 21:50
== END 2020-08-23 21:30 | disposition home or self-care (01) ==
LOC: EDUNIT# 19:32 → ER 19:36
DX: R19.7 Diarrhea, unspecified (principal); I48.91 Unspecified atrial fibrillation; I10 Essential (primary) hypertension; E78.00 Pure hypercholesterolemia, unspecified; K21.9 Gastro-esophageal reflux disease without esophagitis; Z82.49 Family history of ischemic heart disease and other diseases of the circulatory system; Z85.46 Personal history of malignant neoplasm of prostate; Z79.01 Long term (current) use of anticoagulants; Z79.52 Long term (current) use of systemic steroids
CPT/HCPCS: 36415; 80053; 81000; 85025

== ENCOUNTER 2021-04-11 17:16 | Observation (INO) | payer MEDICARE, OTHER ==
[~2021-04-11] VITALS: Ht 180 cm; Wt 83.0 kg
[2021-04-11 18:33] LABS: BASOPHILS # (AUTO) 0.1 10^3/uL (0.0-0.1); BASOPHILS % (AUTO) 1 % (0-10); EOSINOPHILS # (AUTO) 0.4 10^3/uL (0.0-0.3); EOSINOPHILS % (AUTO) 7 % (0-10); HEMATOCRIT 40 % (40-54); HEMOGLOBIN 13.3 g/dL (13.3-17.7); LYMPHOCYTES # (AUTO) 1.6 10^3/uL (1.0-4.0); LYMPHOCYTES % (AUTO) 25 % (12-44); MEAN CORPUSCULAR HEMOGLOBIN 30 pg (25-34); MEAN CORPUSCULAR HGB CONC 34 g/dL (32-36); MEAN CORPUSCULAR VOLUME 91 fL (80-99); MONOCYTES # (AUTO) 0.6 10^3/uL (0.0-1.0); MONOCYTES % (AUTO) 10 % (0-12); NEUTROPHILS # (AUTO) 3.6 10^3/uL (1.8-7.8); NEUTROPHILS % (AUTO) 58 % (42-75); PLATELET COUNT 294 10^3/uL (130-400); WHITE BLOOD COUNT 6.2 10^3/uL (4.3-11.0)
--- NOTE | 2021-04-11 18:33 | ED Neurological Problem ---
General Chief Complaint: Dizziness/Syncope Stated Complaint: SOB, DIZZINESS Nursing Triage Note: ARRIVED VIA AMB TO ROOM 06 WITH COMPLAINTS OF DIZZINESS ET SOA STARTING AT 0200 TODAY. Source: patient Exam Limitations: no limitations History of Present Illness Date Seen by Provider: Apr 11, 2021 Time Seen by Provider: 17:55 Initial Comments 89-year-old male with past medical history of paroxysmal atrial fibrillation on Eliquis, hypertension, hyperlipidemia, and prostate issues with urinary frequency coming in from home due to dizziness and shortness of breath. He states he woke up at 2 AM this morning, felt dizzy which he initially described as being more lightheaded but later described like the room is spinning, woke up his and made her get him some soda to see if that would help. He was able to sleep for a few more hours, but when he woke up again it was still dizzy and difficult to walk. He thought this would get better so waited to present to the emergency department until tonight. He states that shortness of breath has been slow onset throughout the day and is not very severe. Has been vaccinated for Covid. Denies any cough, chest pain, vomiting, diarrhea, focal weakness, num bness, new vision changes, voice changes, or any other concerns. 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 Allergies and Home Medications Allergies Coded Allergies: No Known Drug Allergies (Unverified , 10/23/18) Home Medications Amlodipine Besylate 10 Mg Tablet, 10 MG PO DAILY, (Reported) Apixaban 5 Mg Tablet, 5 MG PO BID, (Reported) Bicalutamide 50 Mg Tablet, 50 MG PO DAILY, (Reported) Calcium Carbonate/Vitamin D3 1 Each Tablet, 1 TAB PO DAILY, (Reported) Fosinopril Sodium 40 Mg Tablet, 20 MG PO DAILY, (Reported) TAKES 1/2 (40MG) TABLET Gluc HCl/Csa/Osmin Hy/Hyalur AC 1 Each Capsule, 1 CAP PO DAILY, (Reported) Hydrochlorothiazide 25 Mg Tablet, 25 MG PO Q48H, (Reported) Multivitamin 1 Each Tablet, 1 TAB PO DAILY, (Reported) Omeprazole 20 Mg Capsule.dr, 40 MG PO DAILY, (Reported) TAKES 2 (20MG) CAPSULES Potassium Gluconate 99 Mg Tablet, 99 MG PO DAILY, (Reported) Prednisolone Acetate/Pf 5 Ml Drops.susp, 1 DROP OU BID, (Reported) Simvastatin 80 Mg Tablet, 40 MG PO HS, (Reported) TAKES 1/2 (80MG) TABLET Trospium Chloride 20 Mg Tablet, 20 MG PO HS, (Reported) Patient Home Medication List Home Medication List Reviewed: Yes Review of Systems Review of Systems Constitutional: No fever Eyes: Denies Blurred Vision Ears, Nose, Mouth, Throat: denies ear pain, denies ear discharge Respiratory: No cough; short of breath Cardiovascular: No chest pain Gastrointestinal: No abdominal pain, No diarrhea, No nausea, No vomiting Genitourinary: frequency Musculoskeletal: No back pain, No joint pain Skin: No rash Psychiatric/Neurological: Denies Anxiety, Denies Depressed Endocrine: No Symptoms Reported Hematologic/Lymphatic: No Symptoms Reported All Other Systems Reviewed Negative Unless Noted: Yes Past Qbcvwoa-Sginlh-Amvxwl Hx Patient Social History Tobacco Use?: No Smoking Status: Never a Smoker Substance use?: No Alcohol Use?: No Immunizations Up To Date Tetanus Booster (TDap): Unknown Second COVID19 Vaccination Dylan: DECEMBER OR JANUARY Seasonal Allergies Seasonal Allergies: No Past Medical History Surgeries: Yes (dental surgery, kidney stones) Bladder Surgery, Eye Surgery, Gallbladder, Prostatectomy Respiratory: No Currently Using CPAP: No Currently Using BIPAP: No Cardiac: Yes (disputed irregular heart beat) Atrial Fibrillation, High Cholesterol, Hypertension Neurological: No Reproductive Disorders: No Sexually Transmitted Disease: No HIV/AIDS: No Genitourinary: Yes Benign Prostatic Hyperpl, Prostate Problems, Kidney Stones Gastrointestinal: No Gastroesophageal Reflux, Chronic Diarrhea, Irritable Bowel Musculoskeletal: Yes Arthritis Endocrine: No 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 Hearing Impairment: Hard of Hearing Cancer: Yes Prostate Did You Recieve Any Treatments: Yes What Type of Treatment Did You: Chemotherapy, Radiation, Surgical Intervention Psychosocial: No Integumentary: No Adverse Reaction/Blood Tranf: No Family Medical History FHx: heart disease Heart G8 BROTHER G8 SISTER Myocardial infarction 19 FATHER 19 MOTHER G8 BROTHER G8 SISTER Physical Exam Vital Signs Vital Signs - First Documented 04/11/21 17:30 Temp 37.4 Pulse 67 Resp 16 B/P (MAP) 173/88 (116) Pulse Ox 97 O2 Delivery Room Air Capillary Refill : Less Than 3 Seconds Height, Weight, BMI Height: 5'10.00" Weight: 177lbs. 8.0oz. [id number]; 25.00 BMI Method:Stated General Appearance: WD/WN, no apparent distress HEENT: normal ENT inspection, TMs normal, pharynx normal, other (Normal visual field and acuity in the left eye, decreased vision in the right eye which is baseline, no nystagmus) Neck: non-tender, full range of motion, supple, normal inspection Respiratory: chest non-tender, lungs clear, normal breath sounds, no respir atory distress, no accessory muscle use Cardiovascular: regular rate, rhythm, no JVD, no murmur, other (Trace lower extremity edema) Gastrointestinal: normal bowel sounds, non tender, soft; No distended, No guard ing, No rebound Back: normal inspection, no CVA tenderness, no vertebral tenderness Extremities: normal range of motion, non-tender, normal inspection, no pedal edema Neurologic/Psychiatric: food and beverage controller II-XII nml as tested, no motor/sensory deficits, alert, normal mood/affect, oriented x 3, abnormal gait Crainal Nerves: normal hearing, normal speech Coordination/Gait: ABN nose to finger (R), ABN nose to finger (L) Motor/Sensory: no motor deficit, no sensory deficit, no pronator drift Skin: normal color, warm/dry Lymphatic: no adenopathy Stroke Onset of Symptoms Date of Onset of Symptoms: Apr 11, 2021 Time of Symptom Onset: 02:00 Onset of Symptoms: Yes Symptoms onset unknown: No NIH Stroke Scale Assessment Level of Consciousness: 0=Alert (0), Level of Consciousness-Questions: 0=Answers both month/age (0), LOC Commands: 0=Performs both tasks (0), Visual Delarosa: 0=No visual loss (0), Facial Movement (Facial Paresis): 0=Normal symmetrical mnt (0), Motor Function-Arms Right: 0=No drift (0), Motor Function-Arms Left: 0=No drift (0), Motor Function-Legs Right: 0=No drift (0), Motor Function-Legs Left: 0=No drift (0), Limb Ataxia: 2=Present in two limbs (2), Sensory: 0=Normal:no loss (0), Best Language: 0=No aphasia (0), Dysarthria: 0=Normal (0), Extinction & Inattention: 0=No abnormality (0), Total: 2 IV - TPa Received IV - TPa Procedure Performed?: No Focused Exam Lactate Level 04/11/21 17:45: Lactic Acid Level 1.34 Lactic Acid Level Laboratory Tests Test 04/11/21 17:45 Lactic Acid Level 1.34 MMOL/L (0.50-2.00) Progress/Results/Core Measures Results/Orders Lab Results Laboratory Tests Test 04/11/21 17:45 04/11/21 19:07 04/11/21 19:33 Range/Units White Blood Count 6.2 4.3-11.0 10^3/uL Red Blood Count 4.37 4.30-5.52 10^6/uL Hemoglobin 13.3 13.3-17.7 g/dL Hematocrit 40 40-54 % Mean Corpuscular Volume 91 80-99 fL Mean Corpuscular Hemoglobin 30 25-34 pg Mean Corpuscular Hemoglobin Concent 34 32-36 g/dL Red Cell Distribution Width 13.5 10.0-14.5 % Platelet Count 294 130-400 10^3/uL Mean Platelet Volume 9.0 9.0-12.2 fL Immature Granulocyte % (Auto) 0 % Neutrophils (%) (Auto) 58 42-75 % Lymphocytes (%) (Auto) 25 12-44 % Monocytes (%) (Auto) 10 0-12 % Eosinophils (%) (Auto) 7 0-10 % Basophils (%) (Auto) 1 0-10 % Neutrophils # (Auto) 3.6 1.8-7.8 10^3/uL Lymphocytes # (Auto) 1.6 1.0-4.0 10^3/uL Monocytes # (Auto) 0.6 0.0-1.0 10^3/uL Eosinophils # (Auto) 0.4 H 0.0-0.3 10^3/uL Basophils # (Auto) 0.1 0.0-0.1 10^3/uL Immature Granulocyte # (Auto) 0.0 0.0-0.1 10^3/uL Prothrombin Time 13.2 12.2-14.7 SEC INR Comment 1.0 0.8-1.4 Activated Partial Thromboplast Time 34 24-35 SEC Sodium Level 142 135-145 MMOL/L Potassium Level 3.9 3.6-5.0 MMOL/L Chloride Level 105 98-107 MMOL/L Carbon Dioxide Level 26 21-32 MMOL/L Anion Gap 11 5-14 MMOL/L Blood Urea Nitrogen 21 H 7-18 MG/DL Creatinine 0.81 0.60-1.30 MG/DL Estimat Glomerular Filtration Rate 90 BUN/Creatinine Ratio 26 Glucose Level 100 70-105 MG/DL Lactic Acid Level 1.34 0.50-2.00 MMOL/L Calcium Level 9.7 8.5-10.1 MG/DL Corrected Calcium 9.9 8.5-10.1 MG/DL Total Bilirubin 0.4 0.1-1.0 MG/DL Aspartate Amino Transf (AST/SGOT) 25 5-34 U/L Alanine Aminotransferase (ALT/SGPT) 12 0-55 U/L Alkaline Phosphatase 53 40-136 U/L Troponin I < 0.028 <0.028 NG/ML Total Protein 6.8 6.4-8.2 GM/DL Albumin 3.7 3.2-4.5 GM/DL SARS-CoV-2 RNA (RT-PCR) Not Detected Not Detecte Urine Color YELLOW Urine Clarity CLEAR Urine pH 5.0 5-9 Urine Specific [place] 1.025 H 1.016-1.022 Urine Protein NEGATIVE NEGATIVE Urine Glucose (UA) NEGATIVE NEGATIVE Urine Ketones NEGATIVE NEGATIVE Urine Nitrite NEGATIVE NEGATIVE Urine Bilirubin NEGATIVE NEGATIVE Urine Urobilinogen 0.2 < = 1.0 MG/DL Urine Leukocyte Esterase NEGATIVE NEGATIVE Urine RBC (Auto) 1+ H NEGATIVE Urine RBC RARE /HPF Urine WBC NONE /HPF Urine Squamous Epithelial Cells 0-2 /HPF Urine Crystals NONE /LPF Urine Bacteria TRACE /HPF Urine Casts PRESENT /LPF Urine Hyaline Casts RARE /LPF Urine Mucus NEGATIVE /LPF Urine Culture Indicated NO Glucometer 96 70-110 MG/DL My Orders Orders - ASAEL SYKES MD Cbc With Automated Diff (04/11/21 18:24) Protime With Inr (04/11/21 18:24) Partial Thromboplastin Time (04/11/21 18:24) Comprehensive Metabolic Panel (04/11/21 18:24) Troponin I (04/11/21 18:24) Ua Culture If Indicated (04/11/21 18:24) Chest 1 View, Ap/Pa Only (04/11/21 18:24) Ekg Tracing (04/11/21 18:24) Accucheck Stat ONCE (04/11/21 18:24) Ed Iv/Invasive Line Start (04/11/21 18:24) Ed Iv/Invasive Line Start (04/11/21 18:24) Vital Signs Stroke Patient Q1HR (04/11/21 18:24) O2 (04/11/21 18:24) Monitor-Rhythm Ecg Trace Only (04/11/21 18:24) Dysphagia Screening Tool (04/11/21 18:24) Lipid Panel (04/12/21 06:00) Ct Angio Head/Neck (04/11/21 18:24) Iohexol Injection (Omnipaque 350 Mg/Ml 1 (04/11/21 19:00) Received Contrast (Hold Metformin- Contr (04/11/21 19:00) Ns (Ivpb) (Sodium Chloride 0.9% Ivpb Bag (04/11/21 19:00) Blood Culture (04/11/21 19:06) Lactic Acid Analyzer (04/11/21 19:06) Ed Iv/Invasive Line Start (04/11/21 19:59) Lactated Ringers (Lr 1000 Ml Iv Solution (04/11/21 20:00) Medications Given in ED Current Medications Medications Dose Ordered Sig/Maylin Route Start Time Stop Time Status Last Admin Dose Admin Iohexol 100 ml ONCE ONCE IV 04/11/21 19:00 04/11/21 19:01 DC 04/11/21 19:17 75 ML Sodium Chloride 100 ml ONCE ONCE IV 04/11/21 19:00 04/11/21 19:01 DC 04/11/21 19:17 80 ML Vital Signs/I&O 04/11/21 17:30 Temp 37.4 Pulse 67 Resp 16 B/P (MAP) 173/88 (116) Pulse Ox 97 O2 Delivery Room Air Blood Pressure Mean: 116 Progress Progress Note : Progress Note 89-year-old male with above history coming in due to dizziness and mild shortness of breath. ABCs were intact and vitals were stable on presentation although he is mildly hypertensive. Physical exam with difficulty with [id number] bilaterally which is difficult to interpret given he is blind in his right eye. However when I try to stand him he does fall over which he sta domitila is unusual for him. He states yesterday he was able to walk without falling over. He has beyond any window for therapy regarding thrombolytics for stroke and therefore stroke alert was not called. We will however do the same work-up regarding this to evaluate for potential posterior stroke. Labs are pretty unremarkable including fairly normal electrolytes and creatinine at his baseline. CT/CTA with some chronic narrowing but no large vessel occlusion or hemorrhagic stroke. There is still the possibility that he had a posterior stroke that was missed. He was given some IV fluids. I talked with Dr. CALDERON the [facility] physician on-call who will admit the patient under observation status. MRI brain has been ordered to hopefully be done in the morning. Diagnostic Imaging Diagonstic Imaging: CT Comments [place], [place] NAME: ANABEL DE LA CRUZ [facility] REC#: [id number] PT STATUS: REG ER : 1930 PHYSICIAN: ASAEL SYKES MD ADMIT DATE: 04/11/21/ER Signed Date of Exam:04/11/21 CT ANGIO HEAD/NECK INDICATION: Dizziness and prostate cancer. TECHNIQUE: Contiguous noncontrast images were obtained from the skull base through the vertex. After intravenous contrast administration, helical CT angiography of the neck was performed. Source data was reformatted into 3D MIP projections. Delayed post contrast acquisition was also obtained. Auto Exposure Controls were utilized during the CT exam to meet ALARA standards for radiation dose reduction. COMPARISON: Prior noncontrast head CT 10/23/2018. CT head findings: Precontrast brain CT demonstrates mild diffuse atrophic changes with mild low-density changes in the deep white matter compatible with chronic ischemic change. There is no subdural or epidural collection. There is no intracranial hemorrhage. There is no mass effect or midline shift. Ventricles are normal in size for age. Calvarial windows are unremarkable. CTA neck findings: There are calcified nodes in the superior mediastinum compatible with granulomatous disease. The thoracic aortic arch is patent with some atherosclerotic change but no evidence of aneurysm or dissection. The great vessel origins are patent and without stenosis. The common carotid arteries, carotid bifurcations, internal carotids and external carotids are patent. There is moderate plaquing peripherally in the carotid bifurcations on both sides, with about 50% stenosis of the left internal carotid artery proximally and less than 20% stenosis on the right side. There is no carotid dissection. Both vertebrals are patent in the neck and appear codominant and without stenosis. CTA head findings: The carotid siphons are patent with minimal plaquing. Distal internal carotid arteries are patent on both sides. The anterior and middle cerebral arteries are patent bilaterally as are their branches. The distal vertebral arteries show some calcified plaque but no high-grade stenosis. The basilar artery and posterior cerebral arteries are patent. There is a origin of the right posterior cerebral artery. The dural venous sinuses are patent. Delayed images demonstrate no enhancing intracranial lesions. IMPRESSION: 1. There are mild diffuse atrophic changes with mild chronic changes in the deep white matter. There is no acute intracranial hemorrhage or mass effect. There is no abnormal intracranial enhancement. 2. CTA neck demonstrates plaquing of the carotid bifurcations on both sides with about 50% stenosis of the left internal carotid proximally and less than 20% stenosis on the right side. Both vertebrals are patent. 3. CTA head shows no major vessel stenosis, occlusion or aneurysmal disease. There is patency of the dural venous sinuses. Dictated by: Dictated on workstation # [id number] Dict: 04/11/211929 Trans: 04/11/211957 [facility] [id number] Interpreted by: ORIN PRABHAKAR MD Electronically signed by: ORIN PRABHAKAR MD 04/11/211957 Departure Impression Primary Impression: Dysequilibrium Additional Impressions: Gait disturbance Shortness of breath Disposition: ADMITTED INPATIENT Condition: Stable Admissions Decision to Admit Reason: Admit from ER (General) Decision to Admit/Date: Apr 11, 2021 Time/Decision to Admit Time: 20:06 Departure-Patient Inst. Referrals: STEFANO ARREAAG DO (PCP/Family) Primary Care Physician ASAEL SYKES MD Apr 11, 2021 18:33
[2021-04-11 18:37] LABS: ALBUMIN 3.7 GM/DL (3.2-4.5); CHLORIDE 105 MMOL/L (98-107); POTASSIUM 3.9 MMOL/L (3.6-5.0); SODIUM 142 MMOL/L (135-145)
[2021-04-11 18:38] LABS: CALCIUM 9.7 MG/DL (8.5-10.1); PROTHROMBIN TIME PATIENT 13.2 SEC (12.2-14.7)
[2021-04-11 18:39] LABS: GLUCOSE 100 MG/DL (70-105); TOTAL PROTEIN 6.8 GM/DL (6.4-8.2)
[2021-04-11 18:41] LABS: BILIRUBIN,TOTAL 0.4 MG/DL (0.1-1.0); CARBON DIOXIDE 26 MMOL/L (21-32)
[2021-04-11 18:43] LABS: ALKALINE PHOSPHATASE 53 U/L (40-136); CREATININE SERUM 0.81 MG/DL (0.60-1.30); GFR ESTIMATED 90
[2021-04-11 18:44] LABS: BUN/CREATININE RATIO 26
[2021-04-11 18:46] LABS: ALANINE AMINOTRANSFERASE 12 U/L (0-55)
[2021-04-11] MEDS ORDERED: NS 100 ML (IVPB) BAG IV ONE (19:00)
[2021-04-11] MEDS ORDERED: IOHEXOL 350 MG/ML 100 ML (OMNIPAQUE 350) VIAL IV ONE (19:00)
[2021-04-11] MEDS ORDERED: HOLD METFORMIN - RECEIVED CONTRAST 20 ML VIAL IV SCH (19:00)
[2021-04-11 19:14] LABS: BILIRUBIN,URINE NEGATIVE (NEGATIVE); CLARITY,URINE CLEAR; COLOR,URINE YELLOW; GLUCOSE, URINE (UA) NEGATIVE (NEGATIVE); KETONES,URINE NEGATIVE (NEGATIVE); LEUKOCYTE ESTERASE ,URINE NEGATIVE (NEGATIVE); NITRITE,URINE NEGATIVE (NEGATIVE); PROTEIN,URINE NEGATIVE (NEGATIVE)
[2021-04-11 19:21] LABS: BACTERIA,URINE TRACE /HPF; HYALINE CASTS, URINE RARE /LPF; RBC,URINE RARE /HPF; SQUAMOUS EPITHELIAL CELL,UR 0-2 /HPF
--- NOTE | 2021-04-11 19:32 | Diagnostic Imaging Report ---
INDICATION: Dizziness and shortness of breath. EXAMINATION: PA and lateral views of the chest were obtained at 7:13 p.m. COMPARISON: 02/03/2017. FINDINGS: Heart is borderline in size. Mediastinal silhouette is unremarkable. There is COPD change with hyperinflation. There is a calcified granuloma in the right base. There is no focal infiltrate, pneumothorax or pleural fluid. IMPRESSION: Hyperinflation compatible with COPD. No focal infiltrate, pneumothorax or pleural fluid. Calcified granuloma in the right lung base. Dictated by: Dictated on workstation # [id number]
--- NOTE | 2021-04-11 19:53 | Diagnostic Imaging Report ---
INDICATION: Dizziness and prostate cancer. TECHNIQUE: Contiguous noncontrast images were obtained from the skull base through the vertex. After intravenous contrast administration, helical CT angiography of the neck was performed. Source data was reformatted into 3D MIP projections. Delayed post contrast acquisition was also obtained. Auto Exposure Controls were utilized during the CT exam to meet ALARA standards for radiation dose reduction. COMPARISON: Prior noncontrast head CT 10/23/2018. CT head findings: Precontrast brain CT demonstrates mild diffuse atrophic changes with mild low-density changes in the deep white matter compatible with chronic ischemic change. There is no subdural or epidural collection. There is no intracranial hemorrhage. There is no mass effect or midline shift. Ventricles are normal in size for age. Calvarial windows are unremarkable. CTA neck findings: There are calcified nodes in the superior mediastinum compatible with granulomatous disease. The thoracic aortic arch is patent with some atherosclerotic change but no evidence of aneurysm or dissection. The great vessel origins are patent and without stenosis. The common carotid arteries, carotid bifurcations, internal carotids and external carotids are patent. There is moderate plaquing peripherally in the carotid bifurcations on both sides, with about 50% stenosis of the left internal carotid artery proximally and less than 20% stenosis on the right side. There is no carotid dissection. Both vertebrals are patent in the neck and appear codominant and without stenosis. CTA head findings: The carotid siphons are patent with minimal plaquing. Distal internal carotid arteries are patent on both sides. The anterior and middle cerebral arteries are patent bilaterally as are their branches. The distal vertebral arteries show some calcified plaque but no high-grade stenosis. The basilar artery and posterior cerebral arteries are patent. There is a origin of the right posterior cerebral artery. The dural venous sinuses are patent. Delayed images demonstrate no enhancing intracranial lesions. IMPRESSION: 1. There are mild diffuse atrophic changes with mild chronic changes in the deep white matter. There is no acute intracranial hemorrhage or mass effect. There is no abnormal intracranial enhancement. 2. CTA neck demonstrates plaquing of the carotid bifurcations on both sides with about 50% stenosis of the left internal carotid proximally and less than 20% stenosis on the right side. Both vertebrals are patent. 3. CTA head shows no major vessel stenosis, occlusion or aneurysmal disease. There is patency of the dural venous sinuses. Dictated by: Dictated on workstation # [id number]
[2021-04-11] MEDS ORDERED: LACTATED RINGERS 1,000 ML IV ONE (20:00)
[2021-04-11] MEDS ORDERED: amLODIPine 10 MG (NORVASC) TAB PO ONE (22:00)
[2021-04-11 22:15] VITALS: BP 173/88
[2021-04-11] MEDS ORDERED: RT-ALBUTEROL/IPRATROPIUM 3 ML (DUONEB) VIAL INH PRN (22:30)
[2021-04-11] MEDS ORDERED: CATHETER FLUSH 10 ML SYR IV PRN (22:30)
[2021-04-11 23:30] VITALS: BP 185/75
[2021-04-12 03:59] VITALS: BP 145/62
[2021-04-12 05:01] LABS: TRIGLYCERIDES 87 MG/DL (<150); VLDL CHOLESTEROL 17 MG/DL (5-40)
[2021-04-12 05:06] LABS: CHOLESTEROL 139 MG/DL (< 200)
[2021-04-12 05:07] LABS: HDL CHOLESTEROL 41 MG/DL (40-60)
[2021-04-12] MEDS: CATHETER FLUSH 10 ML SYR IV SCH ×2 (06:31→14:00)
[2021-04-12 08:00] VITALS: BP 139/78
[2021-04-12] MEDS ORDERED: APIXABAN 5 MG (ELIQUIS) TABLET PO SCH (09:00)
[2021-04-12] MEDS ORDERED: amLODIPine 10 MG (NORVASC) TAB PO SCH (09:00)
--- NOTE | 2021-04-12 09:26 | Short Stay Summary ---
History of Present Illness History of Present Illness Reason for visit/HPI PT IS AND 89 Y/O MALE WHO PRESENTED TO THE HOSPITAL WITH DIZZINESS, FATIGUE, AND HAVING TROUBLE WALKING. HE WAS APPARENTLY WORKING OUTSIDE, GOT QUITE HOT BUT KEPT WORKING OUTSIDE. HE DOES NOT THINK THAT HE WAS DRINKING WELL WITH THE EXCESSIVE HEAT. Date of Admission Apr 11, 2021 at 20:10 Date of Discharge 04/12/21 Time Seen by Provider: 10:30 Attending Physician Kathryn Cruz MD Admitting Physician Tia Nieves DO Consult Allergies and Home Medications Allergies Coded Allergies: No Known Drug Allergies (Unverified , 10/23/18) Home Medications Amlodipine Besylate 10 Mg Tablet, 10 MG PO DAILY, (Reported) Apixaban 5 Mg Tablet, 5 MG PO BID, (Reported) Bicalutamide 50 Mg Tablet, 50 MG PO DAILY, (Reported) Calcium Carbonate/Vitamin D3 1 Each Tablet, 1 TAB PO DAILY, (Reported) Fosinopril Sodium 40 Mg Tablet, 20 MG PO DAILY, (Reported) TAKES 1/2 (40MG) TABLET Gluc HCl/Csa/Osmin Hy/Hyalur AC 1 Each Capsule, 1 CAP PO DAILY, (Reported) Hydrochlorothiazide 25 Mg Tablet, 25 MG PO Q48H, (Reported) Multivitamin 1 Each Tablet, 1 TAB PO DAILY, (Reported) Omeprazole 20 Mg Capsule.dr, 40 MG PO DAILY, (Reported) TAKES 2 (20MG) CAPSULES Potassium Gluconate 99 Mg Tablet, 99 MG PO DAILY, (Reported) Prednisolone Acetate/Pf 5 Ml Drops.susp, 1 DROP OU BID, (Reported) Simvastatin 80 Mg Tablet, 40 MG PO HS, (Reported) TAKES 1/2 (80MG) TABLET Trospium Chloride 20 Mg Tablet, 20 MG PO HS, (Reported) Patient Home Medication List Home Medication List Reviewed: Yes Past Kiphjxf-Vfpjoy-Qifujk Hx Patient Social History Marrital Status: Living Status: LIVES IN OWN HOME WITH SPOUSE Employed/Student: retired Alcohol Beverage of Choice: Whiskey Smoking Status: Never a Smoker 2nd Hand Smoke Exposure: No Recent Hopitalizations: No Have you traveled recently?: No Alcohol Use?: Yes Pt feels they are or have been: No Immunizations Up To Date Tetanus Booster (TDap): Unknown Date of Pneumonia Vaccine: Jun 21, 2018 Date of Influenza Vaccine: Jun 21, 2018 Seasonal Allergies Seasonal Allergies: No Surgeries Yes (dental surgery, kidney stones) Bladder Surgery, Eye Surgery, Gallbladder, Prostatectomy Respiratory No Currently Using CPAP: No Currently Using BIPAP: No Cardiovascular Yes (disputed irregular heart beat) Atrial Fibrillation, High Cholesterol, Hypertension Neurological No Reproductive System Hx Reproductive Disorders: No Sexually Transmitted Disease: No HIV/AIDS: No Genitourinary Yes Benign Prostatic Hyperpl, Prostate Problems, Kidney Stones Gastrointestinal No Gastroesophageal Reflux, Chronic Diarrhea, Irritable Bowel Musculoskeletal Yes Arthritis Endocrine History of Endocrine Disorders: No HEENT History of HEENT Disorders: Yes (Cornia transplant bilaterally) HEENT Disorders: Cataract Loss of Vision: Bilateral Hearing 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 Did You Recieve Any Treatments: Yes Type of Treatment: Chemotherapy, Radiation, Surgical Intervention Psychosocial History of Psychiatric Problem: No Integumentary History of Skin or Integumenta: No Blood Transfusions Adverse Reaction to a Blood Tr: No Family Medical History Family Hx: FHx: heart disease Heart G8 BROTHER G8 SISTER Myocardial infarction 19 FATHER 19 MOTHER G8 BROTHER G8 SISTER Review of Systems Constitutional: No chills; dizziness; No fever; malaise, weakness EENTM: No hoarseness, No throat pain Respiratory: No cough, No dyspnea on exertion, No short of breath Cardiovascular: No chest pain, No palpitations Gastrointestinal: No abdominal pain Genitourinary: No dysuria; frequency Musculoskeletal: muscle weakness Skin: no symptoms reported Psychiatric/Neurological: Denies Anxiety, Denies Depressed; Weakness All Other Systems Reviewed Negative Unless Noted: Yes Physical Exam Vital Signs Vital Signs - First Documented 04/11/21 04/11/21 17:30 22:15 Temp 37.4 Pulse 67 Resp 16 B/P (MAP) 173/88 (116) Pulse Ox 97 O2 Delivery Room Air FiO2 21 Capillary Refill : Less Than 3 Seconds Height, Weight, BMI Height: 5'10.00" Weight: 177lbs. 8.0oz. 80.851003qw; 25.61 BMI Method:Stated General Appearance: No Apparent Distress, WD/WN, Other (YOUNGER THAN APPEARING ELDERLY MALE) Eyes: Bilateral Eye Normal Inspection, Bilateral Eye PERRL, Bilateral Eye EOMI HEENT: PERRL/EOMI, TMs Normal, Normal ENT Inspection, Pharynx Normal Neck: Full Range of Motion, Supple Respiratory: Chest Non Tender, Lungs Clear, Normal Breath Sounds, No Accessory Muscle Use, No Respiratory Distress Cardiovascular: Irregularly Irregular Gastrointestinal: Normal Bowel Sounds, No Organomegaly, No Pulsatile Mass, Non Tender, Soft Rectal: Deferred Back: Normal Inspection, No Vertebral Tenderness Extremity: Normal Capillary Refill, Normal Inspection, Normal Range of Motion, Non Tender, No Calf Tenderness, No Pedal Edema Neurologic/Psychiatric: Alert, Oriented x3, No Motor/Sensory Deficits, Normal Mood/Affect Skin: Normal Color, Warm/Dry Lymphatic: No Adenopathy Clinical Quality Measures Stroke: Date of last known well: Apr 11, 2021 Time of last known well: 02:00 Symptoms onset unknown: No Short Stay Diagnosis Discharge Diagnosis-Short Stay Admission Diagnosis: HEAT EXHAUSTION DIZZINESS WEAKNESS HYPERTENSION ATRIAL FIBRILLATION ADVANCED AGE Final Discharge Diagnosis: HEAT EXHAUSTION DIZZINESS WEAKNESS HYPERTENSION ATRIAL FIBRILLATION ADVANCED AGE Conclusion Labs Laboratory Tests 04/11/21 17:45: White Blood Count 6.2, Red Blood Count 4.37, Hemoglobin 13.3, Hematocrit 40, Mean Corpuscular Volume 91, Mean Corpuscular Hemoglobin 30, Mean Corpuscular Hemoglobin Concent 34, Red Cell Distribution Width 13.5, Platelet Count 294, Mean Platelet Volume 9.0, Immature Granulocyte % (Auto) 0, Neutrophils (%) (Auto) 58, Lymphocytes (%) (Auto) 25, Monocytes (%) (Auto) 10, Eosinophils (%) (Auto) 7, Basophils (%) (Auto) 1, Neutrophils # (Auto) 3.6, Lymphocytes # (Auto) 1.6, Monocytes # (Auto) 0.6, Eosinophils # (Auto) 0.4H, Basophils # (Auto) 0.1, Immature Granulocyte # (Auto) 0.0, Prothrombin Time 13.2, INR Comment 1.0, Activated Partial Thromboplast Time 34, Sodium Level 142, Potassium Level 3.9, Chloride Level 105, Carbon Dioxide Level 26, Anion Gap 11, Blood Urea Nitrogen 21H, Creatinine 0.81, Estimat Glomerular Filtration Rate 90, BUN/Creatinine Ratio 26, Glucose Level 100, Lactic Acid Level 1.34, Calcium Level 9.7, Corrected Calcium 9.9, Total Bilirubin 0.4, Aspartate Amino Transf (AST/SGOT) 25, Alanine Aminotransferase (ALT/SGPT) 12, Alkaline Phosphatase 53, Troponin I < 0.028, Total Protein 6.8, Albumin 3.7, SARS-CoV-2 RNA (RT-PCR) Not Detected 8/8/21 19:07: Urine Color YELLOW, Urine Clarity CLEAR, Urine pH 5.0, Urine Specific [place] 1.025H, Urine Protein NEGATIVE, Urine Glucose (UA) NEGATIVE, Urine Ketones NEGATIVE, Urine Nitrite NEGATIVE, Urine Bilirubin NEGATIVE, Urine Urobilinogen 0.2, Urine Leukocyte Esterase NEGATIVE, Urine RBC (Auto) 1+H, Urine RBC RARE, Urine WBC NONE, Urine Squamous Epithelial Cells 0-2, Urine Crystals NONE, Urine Bacteria TRACE, Urine Casts PRESENT, Urine Hyaline Casts RARE, Urine Mucus NEGATIVE, Urine Culture Indicated NO 04/11/21 19:33: Glucometer 96 04/12/21 04:25: Triglycerides Level 87, Cholesterol Level 139, LDL Cholesterol Direct 83, VLDL Cholesterol 17, HDL Cholesterol 41 Conclusion/Plan HEAT EXHAUSTION DIZZINESS WEAKNESS HYPERTENSION ATRIAL FIBRILLATION ADVANCED AGE PT ADMITTED, MONITORED OVERNIGHT NO ACUTE CONCERNS ON IMAGING OF BRAIN - MRI ALSO NEGATIVE. IV FLUIDS INITIATED, PT TOLERATED WELL, FEELING NORMAL AND NO DIZZINESS THIS MORNING. AFIB - RATE CONTROLLED HYPERTENSION - ON HOME REGIMEN ADVISED PT TO GET FOLLOW UP WITH [facility] AND TO INCREASE FLUIDS PRIOR TO ANY OUTDOOR ACTIVITY AND AGAIN WHEN HE GOES BACK INDOORS HE SHOULD ALSO DRINK WATER OR POWERADE. MRI OF BRAIN - IMPRESSION: Chronic and senescent changes. No acute intracranial process is detected. There are no findings to suggest intracranial metastatic disease. KATHRYN CRUZ MD Apr 12, 2021 09:26
--- NOTE | 2021-04-12 09:30 | Discharge Inst-Simple/Standard ---
Discharge Inst-Standard Reconcile Patient Problems Problems Reviewed?: Yes Patient Instructions/Follow Up Plan of Care/Instructions/FU: [address] munguia 2-3 wk follow up with cardiology Activity as Tolerated: Yes (avoid excessive heat) Discharge Diet: Low Sodium Diet Health Concerns: hypertensive urgency heat exhaustion Return to The Hospital For: any concern for recurrent symptoms, dizziness, chest pain, or other lifethreatening illness or injury TIFFANI CALDERON MD Apr 12, 2021 09:30
[2021-04-12 12:00] VITALS: BP 137/63
[2021-04-12] MEDS ORDERED: GADOBUTROL 10 MMOL/10 ML (GADAVIST) VIAL IV ONE (14:30)
[2021-04-12 15:25] VITALS: BP 156/72
--- NOTE | 2021-04-12 15:47 | Diagnostic Imaging Report ---
PROCEDURE: MR imaging of the brain with and without contrast. TECHNIQUE: Multiplanar, multisequence MR imaging of the brain was performed with and without contrast. INDICATION: Dizziness. COMPARISON: No prior MRI brain studies available for comparison. FINDINGS: The ventricles and sulci are appropriate for the patient's age. Periventricular and subcortical white matter signal abnormalities are noted, consistent with senescent change. The normal expected flow-voids within the carotid siphons are seen. No acute intra-axial or extra-axial hemorrhage is detected. No abnormal enhancement is identified following contrast. There are no findings to suggest intracranial metastatic disease. The corpus callosum is unremarkable. The sella and parasellar structures are unremarkable. IMPRESSION: Chronic and senescent changes. No acute intracranial process is detected. There are no findings to suggest intracranial metastatic disease. Dictated by: Dictated on workstation # [id number]
[2021-04-12 16:38] VITALS: BP 156/72
== END 2021-04-12 16:38 | disposition home or self-care (01) ==
LOC: EDUNIT# 17:16 → ER 17:18 → 4TH 20:10 → UNDOADMOB 20:10 → 4TH 22:37 → UNDODISOB 04-12 16:30
PROVIDERS: ADMIT Family Medicine; ATTEND Family Medicine
DX: X30.XXXA Exposure to excessive natural heat, initial encounter (principal); R42 Dizziness and giddiness; I48.0 Paroxysmal atrial fibrillation; I10 Essential (primary) hypertension; R54 Age-related physical debility; R26.9 Unspecified abnormalities of gait and mobility; R06.02 Shortness of breath; E78.5 Hyperlipidemia, unspecified; I48.91 Unspecified atrial fibrillation; E78.00 Pure hypercholesterolemia, unspecified; K21.9 Gastro-esophageal reflux disease without esophagitis; K58.9 Irritable bowel syndrome, unspecified; M19.90 Unspecified osteoarthritis, unspecified site; Z85.46 Personal history of malignant neoplasm of prostate; Z92.21 Personal history of antineoplastic chemotherapy; Z79.899 Other long term (current) drug therapy; Z90.79 Acquired absence of other genital organ(s); Z79.01 Long term (current) use of anticoagulants; Z92.3 Personal history of irradiation
CPT/HCPCS: 70496; 70498; 70553; 71045; 80053; 80061; 81000; 82947; 83605; 84484; 85025; 85610; 85730; 87040; 87636; 93005; 93041; 96360; 99284; G0378; 36415

== ENCOUNTER → 2021-06-14 | Outpatient (CLI) | payer MEDICARE, OTHER | LOC: CARD 08:30 | PROVIDERS: ATTEND Internal Medicine Cardiovascular Disease | DX: I08.0 Rheumatic disorders of both mitral and aortic valves (principal); I48.0 Paroxysmal atrial fibrillation | CPT/HCPCS: 93225; 93226; 93306 ==

== ENCOUNTER 2021-09-15 15:06 | Emergency (ER) | payer MEDICARE, OTHER ==
[~2021-09-15] VITALS: Ht 180.3 cm; Wt 83.5 kg
[~2021-09-15 15:06] MED LIST changes: -FOSI40TA5 PO; +FOSI40TA65 PO; -POTA99TA21 PO; +POTA99TA26 PO
[2021-09-15 16:34] LABS: BASOPHILS # (AUTO) 0.1 10^3/uL (0.0-0.1); BASOPHILS % (AUTO) 1 % (0-10); EOSINOPHILS # (AUTO) 0.2 10^3/uL (0.0-0.3); EOSINOPHILS % (AUTO) 3 % (0-10); HEMATOCRIT 38 % (40-54); HEMOGLOBIN 12.9 g/dL (13.3-17.7); LYMPHOCYTES # (AUTO) 1.4 10^3/uL (1.0-4.0); LYMPHOCYTES % (AUTO) 19 % (12-44); MEAN CORPUSCULAR HEMOGLOBIN 31 pg (25-34); MEAN CORPUSCULAR HGB CONC 34 g/dL (32-36); MEAN CORPUSCULAR VOLUME 92 fL (80-99); MEAN PLATELET VOLUME 8.7 fL (9.0-12.2); MONOCYTES # (AUTO) 0.7 10^3/uL (0.0-1.0); MONOCYTES % (AUTO) 9 % (0-12); NEUTROPHILS % (AUTO) 69 % (42-75); PLATELET COUNT 338 10^3/uL (130-400); WHITE BLOOD COUNT 7.3 10^3/uL (4.3-11.0)
[2021-09-15 16:48] LABS: ALBUMIN 3.7 GM/DL (3.2-4.5); POTASSIUM 3.6 MMOL/L (3.6-5.0)
[2021-09-15 16:50] LABS: CALCIUM 10.1 MG/DL (8.5-10.1)
[2021-09-15 16:51] LABS: TOTAL PROTEIN 7.3 GM/DL (6.4-8.2)
[2021-09-15 16:53] LABS: BILIRUBIN,TOTAL 0.5 MG/DL (0.1-1.0)
--- NOTE | 2021-09-15 16:53 | ED GU-Female ---
General Chief Complaint: - Reproductive Stated Complaint: UTI,DIZZINESS Nursing Triage Note: PT TO RM 6 BY WHEELCHAIR WITH COMPLAINT OF WEAKNESS, BACK PAIN, AND LOW ABD PAIN. STATES HE IS BEING TREATMED BY PCP FOR UTI. HAS HAD 2 ANTIBIOTIC SHOTS. STATES THEY WERE TOLD TO COME OUT BY PCP. Source: patient Exam Limitations: no limitations (CALIXTO GUNTER APRN) History of Present Illness Date Seen by Provider: Sep 15, 2021 Time Seen by Provider: 16:00 Initial Comments Currently being treated for urinary tract infection. Has had 2 injection of an tibiotics and started on cephalexin. He reports pain in the mid abdomen radiating through to the back. Reports urinary frequency. He does feel like his bladder is full. Timing/Duration: constant Severity/Quality: moderate Location: periumbilical Radiation: none Activities at Onset: none Prior Genitourinary Problems: none Associated Symptoms: denies symptoms (CALIXTO GUNTER APRN) Allergies and Home Medications Allergies Coded Allergies: No Known Drug Allergies (Unverified , 10/23/18) Patient Home Medication List Home Medication List Reviewed: Yes (CALIXTO GUNTER APRN) Amlodipine Besylate (Amlodipine Besylate) 10 Mg Tablet, 10 MG PO DAILY, (Reported) Entered as Reported by: MARIA EUGENIA PINEDA on 10/23/18 1314 Apixaban (Eliquis) 5 Mg Tablet, 5 MG PO BID, (Reported) Entered as Reported by: MARIA EUGENIA PINEDA on 10/23/18 1314 Bicalutamide (Bicalutamide) 50 Mg Tablet, 50 MG PO DAILY, (Reported) Entered as Reported by: MARIA EUGENIA PINEDA on 10/23/18 1314 Calcium Carbonate/Vitamin D3 (Calcium 600 + Vit D 200 Tablet) 1 Each Tablet, 1 TAB PO DAILY, (Reported) Entered as Reported by: MARIA EUGENIA PINEDA on 10/23/18 1458 Fosinopril Sodium (Fosinopril Sodium) 40 Mg Tablet, 20 MG PO DAILY, (Reported) Entered as Reported by: MARIA EUGENIA PINEDA on 10/23/18 1314 Gluc HCl/Csa/Osmin Hy/Hyalur AC (Glucosamine Chondroitin Cap) 1 Each Capsule, 1 CAP PO DAILY, (Reported) Entered as Reported by: MARIA EUGENIA PINEDA on 10/23/18 1315 Hydrochlorothiazide (Hydrochlorothiazide) 25 Mg Tablet, 25 MG PO Q48H, (Reported) Entered as Reported by: MARIA EUGENIA PINEDA on 10/23/18 1458 Multivitamin (Multivitamins) 1 Each Tablet, 1 TAB PO DAILY, (Reported) Entered as Reported by: MARIA EUGENIA PINEDA on 10/23/18 1315 Omeprazole (Omeprazole) 20 Mg Capsule.dr, 40 MG PO DAILY, (Reported) Entered as Reported by: MARIA EUGENIA PINEDA on 10/23/18 1314 Potassium Gluconate (Potassium) 99 Mg Tablet, 99 MG PO DAILY, (Reported) Entered as Reported by: MARIA EUGENIA PINEDA on 10/23/18 1458 Prednisolone Acetate/Pf (Prednisolone Acet 1% Eye Drop) 5 Ml Drops.susp, 1 DROP OU BID, (Reported) Entered as Reported by: MARIA EUGENIA PINEDA on 10/23/18 131 Simvastatin (Simvastatin) 80 Mg Tablet, 40 MG PO HS, (Reported) Entered as Reported by: MARIA EUGENIA PINEDA on 10/23/18 1314 Trospium Chloride (Trospium Chloride) 20 Mg Tablet, 20 MG PO HS, (Reported) Entered as Reported by: MARIA EUGENIA PINEDA on 10/23/18 1314 Review of Systems Review of Systems Constitutional: see HPI EENTM: see HPI Respiratory: no symptoms reported Cardiovascular: no symptoms reported Genitourinary: no symptoms reported Musculoskeletal: see HPI Skin: no symptoms reported Psychiatric/Neurological: No Symptoms Reported Endocrine: No Symptoms Reported Hematologic/Lymphatic: No Symptoms Reported (CALIXTO GUNTER APRN) Past Fatgjvl-Lazejl-Aoneli Hx Patient Social History Tobacco Use?: No Use of E-Cig and/or Vaping dev: No Substance use?: No Alcohol Use?: No Pt feels they are or have been: No (CALIXTO GUNTER APRN) Immunizations Up To Date Tetanus Booster (TDap): Unknown Influenza Vaccine Up-to-Date: Yes; Up-to-Date First/Initial COVID19 Vaccinat: December 2020 Second COVID19 Vaccination Dylan: January 2021 Third COVID19 Vaccination Date: December 2020 COVID19 Vaccine Co Founder & Ceo: ELIANA (CALIXTO GUNTER APRN) Seasonal Allergies Seasonal Allergies: No (CALIXTO GUNETR APRN) Past Medical History Surgeries: Yes (dental surgery, kidney stones) Bladder Surgery, Eye Surgery, Gallbladder, Prostatectomy Respiratory: No Currently Using CPAP: No Currently Using BIPAP: No Cardiac: Yes (disputed irregular heart beat) Atrial Fibrillation, High Cholesterol, Hypertension Neurological: No Reproductive Disorders: No Sexually Transmitted Disease: No HIV/AIDS: No Genitourinary: Yes Benign Prostatic Hyperpl, Prostate Problems, Kidney Stones Gastrointestinal: No Gastroesophageal Reflux, Chronic Diarrhea, Irritable Bowel Musculoskeletal: Yes Arthritis Endocrine: No 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 Hearing Impairment: Hard of Hearing Cancer: Yes Prostate Did You Recieve Any Treatments: Yes What Type of Treatment Did You: Chemotherapy, Radiation, Surgical Intervention Psychosocial: No Integumentary: No Adverse Reaction/Blood Tranf: No (CALIXTO GUNTER APRN) Family Medical History FHx: heart disease Heart G8 BROTHER G8 SISTER Myocardial infarction 19 FATHER 19 MOTHER G8 BROTHER G8 SISTER Physical Exam Vital Signs Vital Signs - First Documented 09/15/21 16:08 Temp 36.1 Pulse 75 Resp 21 B/P (MAP) 191/98 (129) Pulse Ox 98 O2 Delivery Room Air (JOHN BONILLA DO) Vital Signs Capillary Refill : Less Than 3 Seconds (CALIXTO GUNTER APRN) Height, Weight, BMI Height: 5'10.00" Weight: 177lbs. 8.0oz. 80.966875mc; 25.00 BMI Method:Stated General Appearance: WD/WN, no apparent distress HEENT: PERRL/EOMI, normal ENT inspection Neck: non-tender, full range of motion Respiratory: no respiratory distress, no accessory muscle use Gastrointestinal: normal bowel sounds, soft, tenderness Extremities: normal range of motion, non-tender Neurologic/Psychiatric: alert, normal mood/affect, oriented x 3 Skin: normal color, warm/dry (CALIXTO GUNTER APRN) Focused Exam Lactate Level 09/15/21 17:09: Lactic Acid Level 0.92 (JOHN BONILLA DO) Progress/Results/Core Measures Suspected Sepsis SIRS Temperature: Pulse: 75 Respiratory Rate: 21 Laboratory Tests 09/15/21 16:24: White Blood Count 7.3 Blood Pressure 191 /98 Mean: 129 09/15/21 17:09: Lactic Acid Level 0.92 Laboratory Tests 09/15/21 16:24: Creatinine 0.73, INR Comment 1.1, Platelet Count 338, Total Bilirubin 0.5 (CALIXTO GUNTER APRN) Results/Orders Lab Results Laboratory Tests Test 09/15/21 16:24 09/15/21 17:09 09/15/21 17:55 Range/Units White Blood Count 7.3 4.3-11.0 10^3/uL Red Blood Count 4.17 L 4.30-5.52 10^6/uL Hemoglobin 12.9 L 13.3-17.7 g/dL Hematocrit 38 L 40-54 % Mean Corpuscular Volume 92 80-99 fL Mean Corpuscular Hemoglobin 31 25-34 pg Mean Corpuscular Hemoglobin Concent 34 32-36 g/dL Red Cell Distribution Width 13.2 10.0-14.5 % Platelet Count 338 130-400 10^3/uL Mean Platelet Volume 8.7 L 9.0-12.2 fL Immature Granulocyte % (Auto) 0 % Neutrophils (%) (Auto) 69 42-75 % Lymphocytes (%) (Auto) 19 12-44 % Monocytes (%) (Auto) 9 0-12 % Eosinophils (%) (Auto) 3 0-10 % Basophils (%) (Auto) 1 0-10 % Neutrophils # (Auto) 5.0 1.8-7.8 10^3/uL Lymphocytes # (Auto) 1.4 1.0-4.0 10^3/uL Monocytes # (Auto) 0.7 0.0-1.0 10^3/uL Eosinophils # (Auto) 0.2 0.0-0.3 10^3/uL Basophils # (Auto) 0.1 0.0-0.1 10^3/uL Immature Granulocyte # (Auto) 0.0 0.0-0.1 10^3/uL Prothrombin Time 14.1 12.2-14.7 SEC INR Comment 1.1 0.8-1.4 Activated Partial Thromboplast Time 38 H 24-35 SEC Sodium Level 138 135-145 MMOL/L Potassium Level 3.6 3.6-5.0 MMOL/L Chloride Level 104 98-107 MMOL/L Carbon Dioxide Level 23 21-32 MMOL/L Anion Gap 11 5-14 MMOL/L Blood Urea Nitrogen 13 7-18 MG/DL Creatinine 0.73 0.60-1.30 MG/DL Estimat Glomerular Filtration Rate 101 BUN/Creatinine Ratio 18 Glucose Level 108 H 70-105 MG/DL Calcium Level 10.1 8.5-10.1 MG/DL Corrected Calcium 10.3 H 8.5-10.1 MG/DL Total Bilirubin 0.5 0.1-1.0 MG/DL Aspartate Amino Transf (AST/SGOT) 23 5-34 U/L Alanine Aminotransferase (ALT/SGPT) 10 0-55 U/L Alkaline Phosphatase 71 40-136 U/L Total Protein 7.3 6.4-8.2 GM/DL Albumin 3.7 3.2-4.5 GM/DL Lipase 15 8-78 U/L Lactic Acid Level 0.92 0.50-2.00 MMOL/L Urine Color YELLOW Urine Clarity CLEAR Urine pH 7.0 5-9 Urine Specific [place] 1.010 L 1.016-1.022 Urine Protein NEGATIVE NEGATIVE Urine Glucose (UA) NEGATIVE NEGATIVE Urine Ketones TRACE H NEGATIVE Urine Nitrite NEGATIVE NEGATIVE Urine Bilirubin NEGATIVE NEGATIVE Urine Urobilinogen 0.2 < = 1.0 MG/DL Urine Leukocyte Esterase NEGATIVE NEGATIVE Urine RBC (Auto) 1+ H NEGATIVE Urine RBC 2-5 H /HPF Urine WBC RARE /HPF Urine Squamous Epithelial Cells RARE /HPF Urine Crystals NONE /LPF Urine Bacteria TRACE /HPF Urine Casts NONE /LPF Urine Mucus NEGATIVE /LPF Urine Culture Indicated CULTURE PENDING (JOHN BONILLA DO) Medications Given in ED Current Medications Medications Dose Ordered Sig/Maylin Route Start Time Stop Time Status Last Admin Dose Admin Fentanyl Citrate 50 mcg ONCE ONCE IVP 09/15/21 17:00 09/15/21 17:01 DC 09/15/21 17:12 50 MCG Hydralazine HCl 10 mg ONCE ONCE IV 09/15/21 17:00 09/15/21 17:01 DC 09/15/21 17:12 10 MG Iohexol 100 ml ONCE ONCE IV 09/15/21 17:30 09/15/21 17:31 DC 09/15/21 17:53 100 ML Sodium Chloride 100 ml ONCE ONCE IV 09/15/21 17:30 09/15/21 17:31 DC 09/15/21 17:53 80 ML (JOHN BONILLA DO) Vital Signs/I&O 09/15/21 09/15/21 16:08 19:36 Temp 36.1 Pulse 75 86 Resp 21 14 B/P (MAP) 191/98 (129) 138/74 Pulse Ox 98 96 O2 Delivery Room Air Room Air (JOHN BONILLA DO) Vital Signs/I&O Capillary Refill : Less Than 3 Seconds (CALIXTO GUNTER APRN) Blood Pressure Mean: 129 Departure Communication (Admissions) 191-Pain is much better at this point, BP down to 162/85. Family Conversation NAME: ANABEL DE LA CRUZ MED REC#: [id number] PT STATUS: REG ER : 1930 PHYSICIAN: CALIXTO GUNTER APRN ADMIT DATE: 09/15/21/ER Draft Date of Exam:09/15/21 CHEST 1 VIEW, AP/PA ONLY EXAM: Chest 1 view, AP/PA only INDICATION: Sepsis. COMPARISON: 04/11/2021. FINDINGS: Normal heart size and central pulmonary vascularity. Calcified granuloma in the right lung base. No new focal pulmonary opacity. No pleural effusion or pneumothorax. No acute osseous findings. IMPRESSION: No acute cardiopulmonary findings. Dictated on workstation # [id number] Dict: 09/15/21 1749 Trans: 09/15/21 1753 [facility] [id number] Interpreted by: ALBERTO ALVAREZ MD Electronically signed by: NAME: ANABEL DE LA CRUZ MED REC#: [id number] PT STATUS: REG ER : 1930 PHYSICIAN: CALIXTO GUNTER APRN ADMIT DATE: 09/15/21/ER Draft Date of Exam:09/15/21 CT ABDOMEN/PELVIS W EXAMINATION: CT abdomen and pelvis with intravenous contrast. TECHNIQUE: Multiple contiguous axial images were obtained through the abdomen and pelvis after the uneventful administration of intravenous contrast. All CT scans use one or more of the following dose optimizing techniques: automated exposure control, MA and/or KvP adjustment based on patient size and exam type or iterative reconstruction. HISTORY: Abdominal pain. COMPARISON: 01/31/2020. FINDINGS: The heart is prominent. Subsegmental atelectasis is seen in the lung bases. Stable cyst is seen in the left hepatic lobe. No suspicious hepatic lesions are seen. The portal vein is patent. The is surgically absent. There is interval increase in size in a cyst off the superior pole of the left kidney measuring 1.8 cm. This appears to have a small amount of enhancement. Simple cortical cyst is seen in the inferior pole of the left kidney. No evidence of hydronephrosis, bilaterally. The urinary bladder is nondistended. Bladder calculus is seen in the trigone of the urinary bladder right of midline. The bladder has a nodular contour. The prostate is surgically absent. The spleen, pancreas and adrenal glands have a normal appearance. There is no pathologically enlarged mesenteric or retroperitoneal adenopathy. The bowel loops are nondilated. The appendix is visualized in the right lower quadrant and has a normal appearance. Diverticulosis of the descending and sigmoid colon is seen without evidence of acute diverticulitis. There is no free fluid or free air. No acute osseous abnormalities. Chronic height loss is seen in the superior endplate of T11. There is calcified aortic and iliac atherosclerotic plaque without aneurysm. There is no free air, loculated collection or adenopathy in the pelvis. IMPRESSION: 1. Interval increase in size in a cyst off the superior pole of the left kidney which appears to demonstrate contrast enhancement. Findings are concerning for renal cell carcinoma and close interval follow-up is recommended in 3-6 months. Alternatively, MRI of the abdomen with and without contrast may be considered to further characterize. 2. Stable appearance of the urinary bladder with a multinodular contour and calculus in the trigone of the bladder right of midline. No evidence of hydronephrosis. 3. Diverticulosis of the descending and sigmoid colon without evidence of acute diverticulitis. Dictated on workstation # [id number] Dict: 09/15/21 1743 Trans: 09/15/21 1752 [facility] [id number] Interpreted by: LYNDA ALEMAN DO Electronically signed by: (CALIXTO GUNTER APRN) Impression Primary Impression: Abdominal pain Additional Impressions: UTI (urinary tract infection) Renal mass Disposition: HOME, SELF-CARE Condition: Stable Departure-Patient Inst. Decision time for Depature: 17:56 (CALIXTO GUNTER APRN) Referrals: STEFANO ARREAGA DO (PCP/Family) Primary Care Physician Patient Instructions: NO INSTRUCTIONS GIVEN Add. Discharge Instructions: 1. Your left kidney has a lesion or abnormal appearance on the CT that is concerning for renal cell cancer. This warrants a repeat CT scan in 3 months with contrast or an MRI with and without contrast before then. Either of these can be ordered by Dr. ARREAGA. Continue with the antibiotics as directed. Return to ER for any worsening. Your urine sample tonight looks clear which would imply that the antibiotics are working. Finish them out. Return to ER for fevers or other pain. Call Dr. ARREAGA for follow-up tomorrow. All discharge instructions reviewed with patient and/or family. Voiced understanding. ATTENDING PHYSICIAN NOTE: I WAS PHYSICALLY PRESENT ER PHYSICIAN WHEN THIS PATIENT WAS IN ER, BUT I WAS NOT INVOLVED IN ANY DECISION MAKING OR ANY CARE OF THIS PATIENT. (JOHN BONILLA DO) Copy Copies To 1: STEFANO ARREAGA PETER J APRN Sep 15, 2021 16:53 JOHN BONILLA DO Sep 16, 2021 03:18
[2021-09-15 16:54] LABS: CREATININE SERUM 0.73 MG/DL (0.60-1.30)
[2021-09-15] MEDS ORDERED: hydrALAZINE (APESOLINE) 20 MG/ML VIAL IV ONE (17:00)
[2021-09-15] MEDS ORDERED: fentaNYL INJ 100 MCG/2 ML AMP IVP ONE (17:00)
[2021-09-15 17:04] LABS: INR 1.1 (0.8-1.4); PROTHROMBIN TIME PATIENT 14.1 SEC (12.2-14.7)
[2021-09-15] MEDS ORDERED: NS 100 ML (IVPB) BAG IV ONE (17:30)
[2021-09-15] MEDS ORDERED: IOHEXOL 350 MG/ML 100 ML (OMNIPAQUE 350) VIAL IV ONE (17:30)
[2021-09-15] MEDS ORDERED: HOLD METFORMIN - RECEIVED CONTRAST 20 ML VIAL IV SCH (17:30)
--- NOTE | 2021-09-15 17:52 | Diagnostic Imaging Report ---
EXAMINATION: CT abdomen and pelvis with intravenous contrast. TECHNIQUE: Multiple contiguous axial images were obtained through the abdomen and pelvis after the uneventful administration of intravenous contrast. All CT scans use one or more of the following dose optimizing techniques: automated exposure control, MA and/or KvP adjustment based on patient size and exam type or iterative reconstruction. HISTORY: Abdominal pain. COMPARISON: 01/31/2020. FINDINGS: The heart is prominent. Subsegmental atelectasis is seen in the lung bases. Stable cyst is seen in the left hepatic lobe. No suspicious hepatic lesions are seen. The portal vein is patent. The is surgically absent. There is interval increase in size in a cyst off the superior pole of the left kidney measuring 1.8 cm. This appears to have a small amount of enhancement. Simple cortical cyst is seen in the inferior pole of the left kidney. No evidence of hydronephrosis, bilaterally. The urinary bladder is nondistended. Bladder calculus is seen in the trigone of the urinary bladder right of midline. The bladder has a nodular contour. The prostate is surgically absent. The spleen, pancreas and adrenal glands have a normal appearance. There is no pathologically enlarged mesenteric or retroperitoneal adenopathy. The bowel loops are nondilated. The appendix is visualized in the right lower quadrant and has a normal appearance. Diverticulosis of the descending and sigmoid colon is seen without evidence of acute diverticulitis. There is no free fluid or free air. No acute osseous abnormalities. Chronic height loss is seen in the superior endplate of T11. There is calcified aortic and iliac atherosclerotic plaque without aneurysm. There is no free air, loculated collection or adenopathy in the pelvis. IMPRESSION: 1. Interval increase in size in a cyst off the superior pole of the left kidney which appears to demonstrate contrast enhancement. Findings are concerning for renal cell carcinoma and close interval follow-up is recommended in 3-6 months. Alternatively, MRI of the abdomen with and without contrast may be considered to further characterize. 2. Stable appearance of the urinary bladder with a multinodular contour and calculus in the trigone of the bladder right of midline. No evidence of hydronephrosis. 3. Diverticulosis of the descending and sigmoid colon without evidence of acute diverticulitis. Dictated by: Dictated on workstation # [id number]
--- NOTE | 2021-09-15 17:53 | Diagnostic Imaging Report ---
EXAM: Chest 1 view, AP/PA only INDICATION: Sepsis. COMPARISON: 04/11/2021. FINDINGS: Normal heart size and central pulmonary vascularity. Calcified granuloma in the right lung base. No new focal pulmonary opacity. No pleural effusion or pneumothorax. No acute osseous findings. IMPRESSION: No acute cardiopulmonary findings. Dictated by: Dictated on workstation # [id number]
[2021-09-15 17:59] LABS: BILIRUBIN,URINE NEGATIVE (NEGATIVE); CLARITY,URINE CLEAR; COLOR,URINE YELLOW; GLUCOSE, URINE (UA) NEGATIVE (NEGATIVE); KETONES,URINE TRACE (NEGATIVE); LEUKOCYTE ESTERASE ,URINE NEGATIVE (NEGATIVE); NITRITE,URINE NEGATIVE (NEGATIVE); PROTEIN,URINE NEGATIVE (NEGATIVE)
[2021-09-15] MEDS ORDERED: amLODIPine 10 MG (NORVASC) TAB PO ONE (18:00)
[2021-09-15] MEDS ORDERED: lisINopril 20 MG (PRINIVIL) TABLET PO ONE (18:00)
[2021-09-15 18:30] LABS: BACTERIA,URINE TRACE /HPF; SQUAMOUS EPITHELIAL CELL,UR RARE /HPF; WBC,URINE RARE /HPF
[2021-09-15 19:36] VITALS: BP 138/74
== END 2021-09-15 19:36 | disposition home or self-care (01) ==
LOC: EDUNIT# 15:06 → ER 15:07
DX: N39.0 Urinary tract infection, site not specified (principal); N28.89 Other specified disorders of kidney and ureter; I10 Essential (primary) hypertension; K21.9 Gastro-esophageal reflux disease without esophagitis; E78.00 Pure hypercholesterolemia, unspecified; I48.91 Unspecified atrial fibrillation; Z79.01 Long term (current) use of anticoagulants; Z79.899 Other long term (current) drug therapy
CPT/HCPCS: 36415; 71045; 74177; 80053; 81000; 83605; 83690; 85025; 85610; 85730; 87040; 87088

== ENCOUNTER → 2021-09-16 | Outpatient (CLI) | payer MEDICARE, OTHER | LOC: LAB 17:00 | PROVIDERS: ATTEND Family Medicine | DX: R06.00 Dyspnea, unspecified (principal); Z86.718 Personal history of other venous thrombosis and embolism | CPT/HCPCS: 36415; 85379 ==

== ENCOUNTER → 2021-11-03 | Outpatient (CLI) | payer MEDICARE, OTHER ==
[~2021-11-03] MED LIST changes: +AMOX-355 PO; +CEFD300C3 PO; +PANT40SU PO; +SUCR1TAB36 PO
[2021-11-03 14:20] VITALS: BP 188/92
== END ==
LOC: SDC 13:21
PROVIDERS: ATTEND Family Medicine
DX: R33.9 Retention of urine, unspecified (principal)

== ENCOUNTER 2021-11-09 11:11 | Emergency (ER) | payer MEDICARE, OTHER ==
[~2021-11-09] VITALS: Ht 180 cm; Wt 73.0 kg
[~2021-11-09 11:11] MED LIST changes: -AMOX-355 PO; -CEFD300C3 PO; -PANT40SU PO; -SUCR1TAB36 PO
--- NOTE | 2021-11-09 11:31 | ED General ---
General Stated Complaint: BLOOD IN URINE - BLACK STOOL Source of Information: Patient Exam Limitations: No Limitations History of Present Illness Date Seen by Provider: Nov 09, 2021 Time Seen by Provider: 11:26 Initial Comments To ER by private vehicle accompanied by his with reports of noticing some blood in his Obando catheter tubing noticed yesterday. No clots and no sensation of a full bladder. He also has noticed some black stools but he is not sure how long that has been going on. He denies any chest pain or shortness of breath or lightheadedness. He denies any abdominal pain. He is on Eliquis 5 mg twice a day for atrial fibrillation. He skipped yesterday evening dose and this morning dose because of the blood in the catheter tubing. Timing/Duration: 1-2 Days Severity: Moderate Associated Systoms: Denies Symptoms Allergies and Home Medications Allergies Coded Allergies: No Known Drug Allergies (Unverified , 10/23/18) Patient Home Medication List Home Medication List Reviewed: Yes Amlodipine Besylate (Amlodipine Besylate) 10 Mg Tablet, 10 MG PO DAILY, (Reported) Entered as Reported by: MARIA EUGENIA PINEDA on 10/23/18 1314 Apixaban (Eliquis) 5 Mg Tablet, 5 MG PO BID, (Reported) Entered as Reported by: MARIA EUGENIA PINEDA on 10/23/18 1314 Bicalutamide (Bicalutamide) 50 Mg Tablet, 50 MG PO DAILY, (Reported) Entered as Reported by: MARIA EUGENIA PINEDA on 10/23/18 1314 Calcium Carbonate/Vitamin D3 (Calcium 600 + Vit D 200 Tablet) 1 Each Tablet, 1 TAB PO DAILY, (Reported) Entered as Reported by: MARIA EUGENIA PINEDA on 10/23/18 1458 Cefdinir (Cefdinir) 300 Mg Capsule, 300 MG PO BID Prescribed by: CALIXTO GUNTER on 11/09/21 1252 Fosinopril Sodium (Fosinopril Sodium) 40 Mg Tablet, 20 MG PO DAILY, (Reported) Entered as Reported by: MARIA EUGENIA PINEDA on 10/23/18 1314 Gluc HCl/Csa/Osmin Hy/Hyalur AC (Glucosamine Chondroitin Cap) 1 Each Capsule, 1 CAP PO DAILY, (Reported) Entered as Reported by: MARIA EUGENIA PINEDA on 10/23/18 1315 Hydrochlorothiazide (Hydrochlorothiazide) 25 Mg Tablet, 25 MG PO Q48H, (Reported) Entered as Reported by: MARIA EUGENIA PINEDA on 10/23/18 145 Multivitamin (Multivitamins) 1 Each Tablet, 1 TAB PO DAILY, (Reported) Entered as Reported by: MARIA EUGENIA PINEDA on 10/23/18 131 Omeprazole (Omeprazole) 20 Mg Capsule.dr, 40 MG PO DAILY, (Reported) Entered as Reported by: MARIA EUGENIA PINEDA on 10/23/18 1314 Pantoprazole Sodium (Protonix) 40 Mg Granpkt.dr, 40 MG PO DAILY Prescribed by: CALIXTO GUNTER on 11/09/21 1252 Potassium Gluconate (Potassium) 99 Mg Tablet, 99 MG PO DAILY, (Reported) Entered as Reported by: MARIA EUGENIA PINEDA on 10/23/18 1458 Prednisolone Acetate/Pf (Prednisolone Acet 1% Eye Drop) 5 Ml Drops.susp, 1 DROP OU BID, (Reported) Entered as Reported by: MARIA EUGENIA PINEDA on 10/23/18 131 Simvastatin (Simvastatin) 80 Mg Tablet, 40 MG PO HS, (Reported) Entered as Reported by: MARIA EUGENIA PINEDA on 10/23/18 131 Sucralfate (Carafate) 1 Gm Tablet, 1 GM PO QID Prescribed by: CALIXTO GUNTER on 11/09/21 1252 Trospium Chloride (Trospium Chloride) 20 Mg Tablet, 20 MG PO HS, (Reported) Entered as Reported by: MARIA EUGENIA PINEDA on 10/23/18 131 Review of Systems Review of Systems Constitutional: see HPI; No chills, No fever EENTM: see HPI Respiratory: no symptoms reported Cardiovascular: no symptoms reported Gastrointestinal: melena Genitourinary: see HPI, hematuria Musculoskeletal: no symptoms reported Skin: no symptoms reported Psychiatric/Neurological: No Symptoms Reported Hematologic/Lymphatic: No Symptoms Reported Immunological/Allergic: no symptoms reported Past Onyijhr-Xhotqd-Ukrsvc Hx Immunizations Up To Date Tetanus Booster (TDap): Unknown First/Initial COVID19 Vaccinat: December 2020 Second COVID19 Vaccination Dylan: January 2021 Third COVID19 Vaccination Date: December 2020 Seasonal Allergies Seasonal Allergies: No Past Medical History Surgeries: Yes (dental surgery, kidney stones) Bladder Surgery, Eye Surgery, Gallbladder, Prostatectomy Respiratory: No Currently Using CPAP: No Currently Using BIPAP: No Cardiac: Yes (disputed irregular heart beat) Atrial Fibrillation, High Cholesterol, Hypertension Neurological: No Reproductive Disorders: No Sexually Transmitted Disease: No HIV/AIDS: No Genitourinary: Yes Benign Prostatic Hyperpl, Prostate Problems, Kidney Stones Gastrointestinal: No Gastroesophageal Reflux, Chronic Diarrhea, Irritable Bowel Musculoskeletal: Yes Arthritis Endocrine: No 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 Hearing Impairment: Hard of Hearing Cancer: Yes Prostate Did You Recieve Any Treatments: Yes What Type of Treatment Did You: Chemotherapy, Radiation, Surgical Intervention Psychosocial: No Integumentary: No Adverse Reaction/Blood Tranf: No Family Medical History FHx: heart disease Heart G8 BROTHER G8 SISTER Myocardial infarction 19 FATHER 19 MOTHER G8 BROTHER G8 SISTER Physical Exam Vital Signs Vital Signs - First Documented 11/09/21 11:14 Temp 35.8 Pulse 69 Resp 48 B/P (MAP) 200/96 (130) Pulse Ox 98 Capillary Refill : Height, Weight, BMI Height: 5'10.00" Weight: 177lbs. 8.0oz. 80.349968qu; 25.00 BMI Method:Stated General Appearance: No Apparent Distress, WD/WN, Other (Alert and oriented no distress. GCS 15. Very pleasant. Ambulatory to room 6 without assistance. Obando catheter is noted to have some reddish urine in it without clots) Eyes: Bilateral Eye Normal Inspection, Bilateral Eye PERRL HEENT: PERRL/EOMI, Normal ENT Inspection Neck: Full Range of Motion, Normal Inspection Respiratory: Lungs Clear, Normal Breath Sounds, No Accessory Muscle Use, No Respiratory Distress Gastrointestinal: Normal Bowel Sounds, Non Tender, Soft, Other (Abdomen is flat soft and without any tenderness to palpation) Rectal: Other (Digital rectal exam does not reveal any masses. There is a hemorrhoid externally. This is not bleeding. Sample of stool was obtained and found to be positive for occult blood, it was not grossly bloody or particularly dark.) Extremity: Normal Capillary Refill, Normal Inspection, Other (Trace pitting edema bilateral lower extremities) Neurologic/Psychiatric: Alert, Oriented x3 Skin: Normal Color, Warm/Dry Progress/Results/Core Measures Suspected Sepsis SIRS Temperature: Pulse: Respiratory Rate: Laboratory Tests 11/09/21 11:35: White Blood Count 8.1 Blood Pressure / Mean: Laboratory Tests 11/09/21 11:35: Creatinine 0.70, INR Comment 1.0, Platelet Count 379, Total Bilirubin 0.4 Results/Orders Lab Results Laboratory Tests Test 11/09/21 11:35 Range/Units White Blood Count 8.1 4.3-11.0 10^3/uL Red Blood Count 4.41 4.30-5.52 10^6/uL Hemoglobin 13.0 L 13.3-17.7 g/dL Hematocrit 39 L 40-54 % Mean Corpuscular Volume 89 80-99 fL Mean Corpuscular Hemoglobin 30 25-34 pg Mean Corpuscular Hemoglobin Concent 33 32-36 g/dL Red Cell Distribution Width 13.1 10.0-14.5 % Platelet Count 379 130-400 10^3/uL Mean Platelet Volume 8.3 L 9.0-12.2 fL Immature Granulocyte % (Auto) 1 % Neutrophils (%) (Auto) 72 42-75 % Lymphocytes (%) (Auto) 18 12-44 % Monocytes (%) (Auto) 8 0-12 % Eosinophils (%) (Auto) 1 0-10 % Basophils (%) (Auto) 1 0-10 % Neutrophils # (Auto) 5.8 1.8-7.8 10^3/uL Lymphocytes # (Auto) 1.5 1.0-4.0 10^3/uL Monocytes # (Auto) 0.6 0.0-1.0 10^3/uL Eosinophils # (Auto) 0.1 0.0-0.3 10^3/uL Basophils # (Auto) 0.1 0.0-0.1 10^3/uL Immature Granulocyte # (Auto) 0.0 0.0-0.1 10^3/uL Prothrombin Time 13.1 12.2-14.7 SEC INR Comment 1.0 0.8-1.4 Activated Partial Thromboplast Time 34 24-35 SEC Urine Color RED H Urine Clarity CLEAR Urine pH 7.0 5-9 Urine Specific [place] <=1.005 1.016-1.022 Urine Protein 2+ H NEGATIVE Urine Glucose (UA) NEGATIVE NEGATIVE Urine Ketones NEGATIVE NEGATIVE Urine Nitrite NEGATIVE NEGATIVE Urine Bilirubin NEGATIVE NEGATIVE Urine Urobilinogen 0.2 < = 1.0 MG/DL Urine Leukocyte Esterase 3+ H NEGATIVE Urine RBC (Auto) 3+ H NEGATIVE Urine RBC >100 H /HPF Urine WBC 10-25 H /HPF Urine Crystals NONE /LPF Urine Bacteria TRACE /HPF Urine Casts NONE /LPF Urine Mucus NEGATIVE /LPF Urine Culture Indicated YES Sodium Level 135 135-145 MMOL/L Potassium Level 3.8 3.6-5.0 MMOL/L Chloride Level 102 98-107 MMOL/L Carbon Dioxide Level 22 21-32 MMOL/L Anion Gap 11 5-14 MMOL/L Blood Urea Nitrogen 9 7-18 MG/DL Creatinine 0.70 0.60-1.30 MG/DL Estimat Glomerular Filtration Rate 88 BUN/Creatinine Ratio 13 Glucose Level 95 70-105 MG/DL Calcium Level 9.5 8.5-10.1 MG/DL Corrected Calcium 9.7 8.5-10.1 MG/DL Total Bilirubin 0.4 0.1-1.0 MG/DL Aspartate Amino Transf (AST/SGOT) 21 5-34 U/L Alanine Aminotransferase (ALT/SGPT) 12 0-55 U/L Alkaline Phosphatase 74 40-136 U/L B-Type Natriuretic Peptide 267.3 H <100.0 PG/ML Total Protein 7.1 6.4-8.2 GM/DL Albumin 3.7 3.2-4.5 GM/DL My Orders Orders - CALIXTO GUNTER PHYSICAL SCIENCE TECHNICIAN Cbc With Automated Diff (11/09/21 11:25) Comprehensive Metabolic Panel (11/09/21 11:25) Ua Culture If Indicated (11/09/21 11:25) Protime With Inr (11/09/21 11:25) Partial Thromboplastin Time (11/09/21 11:25) Ed Iv/Invasive Line Start (11/09/21 11:25) Chest 1 View, Ap/Pa Only (11/09/21 11:25) Bnp Terri (11/09/21 11:25) Type And Screen (11/09/21 11:25) Occult Blood Stool (11/09/21 11:25) Urine Culture (11/09/21 11:35) Ceftriaxone 1 Gm Pre-Mix (Rocephin 1 Gm (11/09/21 12:15) Ct Abdomen/Pelvis W (11/09/21 12:09) Iohexol Injection (Omnipaque 350 Mg/Ml 1 (11/09/21 12:30) Received Contrast (Hold Metformin- Contr (11/09/21 12:30) Ns (Ivpb) (Sodium Chloride 0.9% Ivpb Bag (11/09/21 12:30) Medications Given in ED Current Medications Medications Dose Ordered Sig/Maylin Route Start Time Stop Time Status Last Admin Dose Admin Ceftriaxone Sodium/Dextrose 50 ml @ 100 mls/hr ONCE ONCE IV 11/09/21 12:15 11/09/21 12:44 DC 11/09/21 12:21 100 MLS/HR Iohexol 100 ml ONCE ONCE IV 11/09/21 12:30 11/09/21 12:31 DC 11/09/21 12:36 92 ML Sodium Chloride 100 ml ONCE ONCE IV 11/09/21 12:30 11/09/21 12:31 DC 11/09/21 12:36 80 ML Vital Signs/I&O 11/09/21 11:14 Temp 35.8 Pulse 69 Resp 48 B/P (MAP) 200/96 (130) Pulse Ox 98 Capillary Refill : Diagnostic Imaging Diagonstic Imaging: Xray Comments NAME: ANABEL DE LA CRUZ MED REC#: [id number] PT STATUS: REG ER : 1930 PHYSICIAN: CALIXTO GUNTER PHYSICAL SCIENCE TECHNICIAN ADMIT DATE: 11/09/21/ER Draft Date of Exam:11/09/21 CHEST 1 VIEW, AP/PA ONLY INDICATION: Gastrointestinal bleed. Frontal chest obtained at 11:52 a.m. COMPARISON: 09/15/2021 FINDINGS: There is cardiomegaly. There are old granulomatous changes with calcified nodes over the hilum on both sides as well as over the AP window. There is no focal infiltrate or pneumothorax or pleural fluid. IMPRESSION: Cardiomegaly. Old granulomatous changes. No acute process in the chest. Dictated on workstation # [id number] Dict: 11/09/21 1207 Trans: 11/09/21 1209 [id number] Interpreted by: ORIN PRABHAKAR MD Electronically signed by: Departure Communication (Admissions) Family Conversation [id number] spoke with Dr. Brooks agrees with discharge to home, Protonix Carafate, stop the Eliquis. Given his advanced age the risk for adverse effect from the Eliquis such as bleeding or traumatic injury is great. We will discharged home with outpatient follow-up. NAME: ANABEL DE LA CRUZ [facility] REC#: [id number] PT STATUS: REG ER : 1930 PHYSICIAN: CALIXTO GUNTER APRN ADMIT DATE: 11/09/21/ER Draft Date of Exam:11/09/21 CT ABDOMEN/PELVIS W INDICATION: Hematuria and melena, history of prostate cancer. TECHNIQUE: Multiple contiguous axial images were obtained through the abdomen and pelvis after administration of intravenous contrast. Auto Exposure Controls were utilized during the CT exam to meet ALARA standards for radiation dose reduction. All CT scans use one or more of the following dose optimizing techniques: automated exposure control, MA and/or KvP adjustment based on patient size and exam type or iterative reconstruction. COMPARISON: 09/15/2021. FINDINGS: The visualized portions of the lung bases show no infiltrates. There are scattered areas of scarring in both lung bases. There is no pleural fluid or free intraperitoneal air. 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 The liver shows no focal lesion. The small cyst in the right lobe of the liver anteriorly is unchanged. The spleen, adrenals, and pancreas are normal. The kidneys bilaterally show no hydronephrosis. There is a stable cyst in the lower pole of the left kidney. There is a small solid mass in the superior pole of the left kidney measuring about 2.0 cm, slightly increased compared to the prior study. There is no retroperitoneal mass or adenopathy. There is no ascites. The visualized bowel loops show no obstruction. The urinary bladder is markedly thickened with a Obando catheter in place. IMPRESSION: There is marked thickening of the urinary bladder with a Obando catheter in place. There is no sign of bowel obstruction. There are extensive uncomplicated sigmoid diverticula. There is a benign-appearing cyst in the lower pole of the left kidney. There is a small solid lesion in the superior pole of the left kidney, slightly increased in size compared to 09/15/2021. A small neoplasm is not excluded. There is some scarring in the lung bases. 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 Dictated on workstation # [id number] Dict: 11/09/21 1242 Trans: 11/09/21 1249 [id number] Interpreted by: ORIN PRABHAKAR MD Electronically signed by: Impression Primary Impression: UTI (urinary tract infection) Qualified Codes: N30.01 - Acute cystitis with hematuria Additional Impressions: Hematuria Qualified Codes: R31.9 - Hematuria, unspecified GI bleed Qualified Codes: K29.71 - Gastritis, unspecified, with bleeding Disposition: HOME, SELF-CARE Condition: Stable Departure-Patient Inst. Decision time for Depature: 13:25 Referrals: STEFANO NIEVES DO (PCP/Family) Primary Care Physician Patient Instructions: Urinary Tract Infection, Adult ED Add. Discharge Instructions: Dr. Turner until otherwise directed. Take the antibiotic for the bladder infection. Take the acid general assembler medication. Follow-up with Dr. Nieves later this week. Scripts Sucralfate (Carafate) 1 Gm Tablet 1 GM PO QID, #40 TAB Prov: CALIXTO GUNTER APRN 11/09/21 Pantoprazole Sodium (Protonix) [address] 40 MG PO DAILY, #30 TAB Prov: CALIXTO GUNTER APRN 11/09/21 Cefdinir (Cefdinir) 300 Mg Capsule 300 MG PO BID, #14 CAP Prov: CALIXTO GUNTER APRN 11/09/21 Copy Copies To 1: STEFANO NIEVES PETER J APRN Nov 09, 2021 11:31
[2021-11-09 11:48] LABS: BASOPHILS # (AUTO) 0.1 10^3/uL (0.0-0.1); BASOPHILS % (AUTO) 1 % (0-10); EOSINOPHILS # (AUTO) 0.1 10^3/uL (0.0-0.3); EOSINOPHILS % (AUTO) 1 % (0-10); HEMATOCRIT 39 % (40-54); LYMPHOCYTES # (AUTO) 1.5 10^3/uL (1.0-4.0); LYMPHOCYTES % (AUTO) 18 % (12-44); MEAN CORPUSCULAR HEMOGLOBIN 30 pg (25-34); MEAN CORPUSCULAR HGB CONC 33 g/dL (32-36); MEAN CORPUSCULAR VOLUME 89 fL (80-99); MEAN PLATELET VOLUME 8.3 fL (9.0-12.2); MONOCYTES # (AUTO) 0.6 10^3/uL (0.0-1.0); MONOCYTES % (AUTO) 8 % (0-12); NEUTROPHILS # (AUTO) 5.8 10^3/uL (1.8-7.8); NEUTROPHILS % (AUTO) 72 % (42-75); PLATELET COUNT 379 10^3/uL (130-400); WHITE BLOOD COUNT 8.1 10^3/uL (4.3-11.0)
[2021-11-09 11:51] LABS: BILIRUBIN,URINE NEGATIVE (NEGATIVE); CLARITY,URINE CLEAR; COLOR,URINE RED; GLUCOSE, URINE (UA) NEGATIVE (NEGATIVE); KETONES,URINE NEGATIVE (NEGATIVE); LEUKOCYTE ESTERASE ,URINE 3+ (NEGATIVE); NITRITE,URINE NEGATIVE (NEGATIVE); PROTEIN,URINE 2+ (NEGATIVE)
[2021-11-09 11:58] LABS: ALBUMIN 3.7 GM/DL (3.2-4.5)
[2021-11-09 11:59] LABS: POTASSIUM 3.8 MMOL/L (3.6-5.0)
[2021-11-09 12:00] LABS: CALCIUM 9.5 MG/DL (8.5-10.1); PROTHROMBIN TIME PATIENT 13.1 SEC (12.2-14.7)
[2021-11-09 12:01] LABS: TOTAL PROTEIN 7.1 GM/DL (6.4-8.2)
[2021-11-09 12:03] LABS: BILIRUBIN,TOTAL 0.4 MG/DL (0.1-1.0)
[2021-11-09 12:04] LABS: CREATININE SERUM 0.7 MG/DL (0.60-1.30)
[2021-11-09 12:07] LABS: RBC,URINE >100 /HPF
[2021-11-09 12:08] LABS: BACTERIA,URINE TRACE /HPF
--- NOTE | 2021-11-09 12:09 | Diagnostic Imaging Report ---
INDICATION: Gastrointestinal bleed. Frontal chest obtained at 11:52 a.m. COMPARISON: 09/15/2021 FINDINGS: There is cardiomegaly. There are old granulomatous changes with calcified nodes over the hilum on both sides as well as over the AP window. There is no focal infiltrate or pneumothorax or pleural fluid. IMPRESSION: Cardiomegaly. Old granulomatous changes. No acute process in the chest. Dictated by: Dictated on workstation # [id number]
[2021-11-09] MEDS ORDERED: cefTRIAXone 1 GM PRE-MIX 50 ML IV ONE (12:15)
[2021-11-09] MEDS ORDERED: NS 100 ML (IVPB) BAG IV ONE (12:30)
[2021-11-09] MEDS ORDERED: HOLD METFORMIN - RECEIVED CONTRAST 20 ML VIAL IV SCH (12:30)
[2021-11-09] MEDS ORDERED: IOHEXOL 350 MG/ML 100 ML (OMNIPAQUE 350) VIAL IV ONE (12:30)
--- NOTE | 2021-11-09 12:49 | Diagnostic Imaging Report ---
INDICATION: Hematuria and melena, history of prostate cancer. TECHNIQUE: Multiple contiguous axial images were obtained through the abdomen and pelvis after administration of intravenous contrast. Auto Exposure Controls were utilized during the CT exam to meet ALARA standards for radiation dose reduction. All CT scans use one or more of the following dose optimizing techniques: automated exposure control, MA and/or KvP adjustment based on patient size and exam type or iterative reconstruction. COMPARISON: 09/15/2021. FINDINGS: The visualized portions of the lung bases show no infiltrates. There are scattered areas of scarring in both lung bases. There is no pleural fluid or free intraperitoneal air. 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 The liver shows no focal lesion. The small cyst in the right lobe of the liver anteriorly is unchanged. The spleen, adrenals, and pancreas are normal. The kidneys bilaterally show no hydronephrosis. There is a stable cyst in the lower pole of the left kidney. There is a small solid mass in the superior pole of the left kidney measuring about 2.0 cm, slightly increased compared to the prior study. There is no retroperitoneal mass or adenopathy. There is no ascites. The visualized bowel loops show no obstruction. The urinary bladder is markedly thickened with a Obando catheter in place. IMPRESSION: There is marked thickening of the urinary bladder with a Obando catheter in place. There is no sign of bowel obstruction. There are extensive uncomplicated sigmoid diverticula. There is a benign-appearing cyst in the lower pole of the left kidney. There is a small solid lesion in the superior pole of the left kidney, slightly increased in size compared to 09/15/2021. A small neoplasm is not excluded. There is some scarring in the lung bases. 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 Dictated by: Dictated on workstation # [id number]
[2021-11-09] MEDS ORDERED: PANT40SU PO (12:52)
[2021-11-09] MEDS ORDERED: CEFD300C3 PO (12:52)
[2021-11-09] MEDS ORDERED: SUCR1TAB36 PO (12:52)
[2021-11-09] MEDS ORDERED: cefTRIAXone 1,000 MG VIAL ONE (14:06)
[2021-11-09] MEDS ORDERED: cefTRIAXone 1,000 MG VIAL IM ONE (14:15)
[2021-11-09] MEDS ORDERED: LIDOCAINE 1% INJ 20 ML VIAL INJ ONE (14:15)
[2021-11-09 14:19] VITALS: BP 164/90
[2021-11-10] MEDS ORDERED: AMOX-355 PO (15:01)
== END 2021-11-09 14:19 | disposition home or self-care (01) ==
LOC: EDUNIT# 11:11 → ER 11:12
DX: N39.0 Urinary tract infection, site not specified (principal); R31.9 Hematuria, unspecified; K92.2 Gastrointestinal hemorrhage, unspecified; I48.91 Unspecified atrial fibrillation; Z79.01 Long term (current) use of anticoagulants
CPT/HCPCS: 36415; 71045; 74177; 80053; 81000; 82274; 83880; 85025; 85610; 85730; 86850; 86900; 86901; 87077; 87088

== ENCOUNTER 2021-11-10 12:32 | Emergency (ER) | payer MEDICARE, OTHER ==
[~2021-11-10] VITALS: Ht 180 cm; Wt 83.6 kg
[~2021-11-10 12:32] MED LIST changes: +CEFD300C3 PO; +PANT40SU PO; +SUCR1TAB36 PO
[2021-11-10] MEDS ORDERED: LIDOCAINE UROJET 2% GEL 10 ML PKG TOP ONE (13:00)
--- NOTE | 2021-11-10 13:01 | ED GU-Female ---
General Chief Complaint: - Reproductive Stated Complaint: BLOOD IN URINE - CATH PROBLEMS Nursing Triage Note: AMB TO ED WITH DAVEY IN PLACE WAS SEEN YESTERDAY FOR BLOOD IN URINE. TODAY HAS BEEN DRINKING BUT NOT PUTTING OUT ANY URINE IN BAG URINE LEAKING OUT AROUND DAVEY. Source: patient Exam Limitations: no limitations History of Present Illness Date Seen by Provider: Nov 10, 2021 Time Seen by Provider: 12:58 Initial Comments To ER with reports of sensation of full bladder. His Davey catheter has not been draining this morning. He was seen here yesterday for the same, hematuria and dark stools. He was found to have a fecal occult blood positive stool and minor hematuria without clot. He had recently restarted his Eliquis for atrial fibrillation. He was instructed to discontinue Eliquis use, diagnosed with urinary tract infection and given Rocephin. He denies any fevers or chills. Timing/Duration: constant Severity/Quality: moderate Location: suprapubic Radiation: none Activities at Onset: none Prior Genitourinary Problems: none Allergies and Home Medications Allergies Coded Allergies: No Known Drug Allergies (Unverified , 10/23/18) Patient Home Medication List Home Medication List Reviewed: Yes Amlodipine Besylate (Amlodipine Besylate) 10 Mg Tablet, 10 MG PO DAILY, (Reported) Entered as Reported by: MARIA EUGENIA PINEDA on 10/23/18 1314 Apixaban (Eliquis) 5 Mg Tablet, 5 MG PO BID, (Reported) Entered as Reported by: MARIA EUGENIA PINEDA on 10/23/18 1314 Bicalutamide (Bicalutamide) 50 Mg Tablet, 50 MG PO DAILY, (Reported) Entered as Reported by: MARIA EUGENIA PINEDA on 10/23/18 1314 Calcium Carbonate/Vitamin D3 (Calcium 600 + Vit D 200 Tablet) 1 Each Tablet, 1 TAB PO DAILY, (Reported) Entered as Reported by: MARIA EUGENIA PINEDA on 10/23/18 1458 Cefdinir (Cefdinir) 300 Mg Capsule, 300 MG PO BID Prescribed by: CALIXTO GUNTER on 11/09/21 1252 Fosinopril Sodium (Fosinopril Sodium) 40 Mg Tablet, 20 MG PO DAILY, (Reported) Entered as Reported by: MARIA EUGENIA PINEDA on 10/23/18 1314 Gluc HCl/Csa/Osmin Hy/Hyalur AC (Glucosamine Chondroitin Cap) 1 Each Capsule, 1 CAP PO DAILY, (Reported) Entered as Reported by: MARIA EUGENIA PINEDA on 10/23/18 1315 Hydrochlorothiazide (Hydrochlorothiazide) 25 Mg Tablet, 25 MG PO Q48H, (Reported) Entered as Reported by: MARIA EUGENIA PINEDA on 10/23/18 1458 Multivitamin (Multivitamins) 1 Each Tablet, 1 TAB PO DAILY, (Reported) Entered as Reported by: MARIA EUGENIA PINEDA on 10/23/18 131 Omeprazole (Omeprazole) 20 Mg Capsule.dr, 40 MG PO DAILY, (Reported) Entered as Reported by: MARIA EUGENIA PINEDA on 10/23/18 1314 Pantoprazole Sodium (Protonix) 40 Mg Granpkt.dr, 40 MG PO DAILY Prescribed by: CALIXTO GUNTER on 11/09/21 125 Potassium Gluconate (Potassium) 99 Mg Tablet, 99 MG PO DAILY, (Reported) Entered as Reported by: MARIA EUGENIA PINEDA on 10/23/18 145 Prednisolone Acetate/Pf (Prednisolone Acet 1% Eye Drop) 5 Ml Drops.susp, 1 DROP OU BID, (Reported) Entered as Reported by: MARIA EUGENIA PINEDA on 10/23/18 1314 Simvastatin (Simvastatin) 80 Mg Tablet, 40 MG PO HS, (Reported) Entered as Reported by: MARIA EUGENIA PINEDA on 10/23/18 131 Sucralfate (Carafate) 1 Gm Tablet, 1 GM PO QID Prescribed by: CALIXTO GUNTER on 11/09/21 1252 Trospium Chloride (Trospium Chloride) 20 Mg Tablet, 20 MG PO HS, (Reported) Entered as Reported by: MARIA EUGENIA PINEDA on 10/23/18 1314 Review of Systems Review of Systems Constitutional: see HPI EENTM: see HPI Respiratory: no symptoms reported Cardiovascular: no symptoms reported Genitourinary: see HPI, hematuria Musculoskeletal: no symptoms reported Skin: no symptoms reported Psychiatric/Neurological: No Symptoms Reported Endocrine: No Symptoms Reported Hematologic/Lymphatic: No Symptoms Reported Past Eowfopr-Gfqrrb-Yuvosl Hx Immunizations Up To Date Tetanus Booster (TDap): Unknown First/Initial COVID19 Vaccinat: 2020 Second COVID19 Vaccination Dylan: 2020 Third COVID19 Vaccination Date: December 2020 Seasonal Allergies Seasonal Allergies: No Past Medical History Surgery/Hospitalization HX: URINARY RETENTION, ATRIAL FIB Surgeries: Yes (dental surgery, kidney stones) Bladder Surgery, Eye Surgery, Gallbladder, Prostatectomy Respiratory: No Currently Using CPAP: No Currently Using BIPAP: No Cardiac: Yes (disputed irregular heart beat) Atrial Fibrillation, High Cholesterol, Hypertension Neurological: No Reproductive Disorders: No Sexually Transmitted Disease: No HIV/AIDS: No Genitourinary: Yes Benign Prostatic Hyperpl, Prostate Problems, Kidney Stones Gastrointestinal: No Gastroesophageal Reflux, Chronic Diarrhea, Irritable Bowel Musculoskeletal: Yes Arthritis Endocrine: No 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00" Weight: 177lbs. 8.0oz. 80.686701km; 25.00 BMI Method:Stated General Appearance: WD/WN, no apparent distress Neck: non-tender, full range of motion Respiratory: normal breath sounds, no respiratory distress, no accessory muscle use Gastrointestinal: normal bowel sounds, non tender, soft Genital/Rectal: other (There is no urine in the Davey catheter tubing. He does have some bloody urine that has saturated his brief leaking around the catheter.) Extremities: normal range of motion, non-tender Neurologic/Psychiatric: alert, normal mood/affect, oriented x 3 Skin: normal color, warm/dry Progress/Results/Core Measures Suspected Sepsis SIRS Temperature: Pulse: 76 Respiratory Rate: 18 Laboratory Tests 11/10/21 13:08: White Blood Count 7.4 Blood Pressure 214 /84 Mean: 127 Laboratory Tests 11/10/21 13:08: Creatinine 0.75, Platelet Count 334 Results/Orders Lab Results Laboratory Tests Test 11/10/21 13:08 Range/Units White Blood Count 7.4 4.3-11.0 10^3/uL Red Blood Count 4.13 L 4.30-5.52 10^6/uL Hemoglobin 12.4 L 13.3-17.7 g/dL Hematocrit 37 L 40-54 % Mean Corpuscular Volume 88 80-99 fL Mean Corpuscular Hemoglobin 30 25-34 pg Mean Corpuscular Hemoglobin Concent 34 32-36 g/dL Red Cell Distribution Width 13.2 10.0-14.5 % Platelet Count 334 130-400 10^3/uL Mean Platelet Volume 8.2 L 9.0-12.2 fL Immature Granulocyte % (Auto) 0 % Neutrophils (%) (Auto) 70 42-75 % Lymphocytes (%) (Auto) 19 12-44 % Monocytes (%) (Auto) 8 0-12 % Eosinophils (%) (Auto) 2 0-10 % Basophils (%) (Auto) 1 0-10 % Neutrophils # (Auto) 5.2 1.8-7.8 10^3/uL Lymphocytes # (Auto) 1.4 1.0-4.0 10^3/uL Monocytes # (Auto) 0.6 0.0-1.0 10^3/uL Eosinophils # (Auto) 0.1 0.0-0.3 10^3/uL Basophils # (Auto) 0.1 0.0-0.1 10^3/uL Immature Granulocyte # (Auto) 0.0 0.0-0.1 10^3/uL Sodium Level 135 135-145 MMOL/L Potassium Level 3.8 3.6-5.0 MMOL/L Chloride Level 103 98-107 MMOL/L Carbon Dioxide Level 21 21-32 MMOL/L Anion Gap 11 5-14 MMOL/L Blood Urea Nitrogen 13 7-18 MG/DL Creatinine 0.75 0.60-1.30 MG/DL Estimat Glomerular Filtration Rate 86 BUN/Creatinine Ratio 17 Glucose Level 98 70-105 MG/DL Calcium Level 9.1 8.5-10.1 MG/DL My Orders Orders - CALIXTO GUNTER APRN Continuous Bladder Irrigation (11/10/21 12:55) Monitor For Bladder Distention (11/10/21 12:55) Cbc With Automated Diff (11/10/21 12:55) Basic Metabolic Panel (11/10/21 12:55) Lidocaine 2% (Urojet) (Xylocaine Urojet) (3/9/22 13:00) Levofloxacin Tablet (Levaquin Tablet) (11/10/21 14:15) Amoxicillin/Clavulanate Tablet (Augmenti (11/10/21 14:15) Medications Given in ED Current Medications Medications Dose Ordered Sig/Maylin Route Start Time Stop Time Status Last Admin Dose Admin Lidocaine HCl 10 ml ONCE ONCE TOP 11/10/21 13:00 11/10/21 13:01 DC 11/10/21 13:05 10 ML Vital Signs/I&O 11/10/21 12:46 Temp 36.8 Pulse 76 Resp 18 B/P (MAP) 214/84 (127) Pulse Ox 99 O2 Delivery Room Air Capillary Refill : Less Than 3 Seconds Blood Pressure Mean: 127 Departure Communication (Admissions) on arrival we hand irrigated the catheter. We will attempt to get a 22 [place]ian three-way catheter into continue irrigation. We did remove several clots. 1333-we have removed his 16 or 18 [place]ian Davey catheter. Instilled some lidocaine gel up the urethra. We then inserted a 22 [place]ian three-way Davey catheter attached to normal saline continuous bladder irrigation. His urine sample from yesterday shows Klebsiella and Enterococcus. We are still awaiting sensitivities. I will stop the Ceftin and switch to Augmentin Impression Primary Impression: Hematuria Additional Impression: Obstructed Davey catheter Disposition: HOME, SELF-CARE Condition: Stable Departure-Patient Inst. Decision time for Depature: 13:34 Referrals: STEFANO ARREAGA DO (PCP/Family) Primary Care Physician Patient Instructions: Blood in the Urine (Hematuria), Adult (DC) CALIXTO GUNTER APRN Nov 10, 2021 13:01
[2021-11-10 13:14] LABS: BASOPHILS # (AUTO) 0.1 10^3/uL (0.0-0.1); BASOPHILS % (AUTO) 1 % (0-10); EOSINOPHILS # (AUTO) 0.1 10^3/uL (0.0-0.3); EOSINOPHILS % (AUTO) 2 % (0-10); HEMATOCRIT 37 % (40-54); HEMOGLOBIN 12.4 g/dL (13.3-17.7); LYMPHOCYTES # (AUTO) 1.4 10^3/uL (1.0-4.0); LYMPHOCYTES % (AUTO) 19 % (12-44); MEAN CORPUSCULAR HEMOGLOBIN 30 pg (25-34); MEAN CORPUSCULAR HGB CONC 34 g/dL (32-36); MEAN CORPUSCULAR VOLUME 88 fL (80-99); MEAN PLATELET VOLUME 8.2 fL (9.0-12.2); MONOCYTES # (AUTO) 0.6 10^3/uL (0.0-1.0); MONOCYTES % (AUTO) 8 % (0-12); NEUTROPHILS # (AUTO) 5.2 10^3/uL (1.8-7.8); NEUTROPHILS % (AUTO) 70 % (42-75); PLATELET COUNT 334 10^3/uL (130-400); WHITE BLOOD COUNT 7.4 10^3/uL (4.3-11.0)
[2021-11-10 13:24] LABS: POTASSIUM 3.8 MMOL/L (3.6-5.0)
[2021-11-10 13:25] LABS: CALCIUM 9.1 MG/DL (8.5-10.1)
[2021-11-10 13:29] LABS: CREATININE SERUM 0.75 MG/DL (0.60-1.30)
[2021-11-10] MEDS ORDERED: AUGMENTIN 875 MG TAB (AMOXICILLIN/CLAVULANATE) PO SCH (14:15)
[2021-11-10] MEDS ORDERED: cloNIDine 0.1 MG (CATAPRES) TAB PO ONE (14:45)
[2021-11-10] MEDS ORDERED: AMOX-355 PO (15:01)
[2021-11-10 15:09] VITALS: BP 183/84
== END 2021-11-10 15:12 | disposition home or self-care (01) ==
LOC: EDUNIT# 12:32 → ER 12:33
DX: R31.9 Hematuria, unspecified (principal); T83.098A Other mechanical complication of other urinary catheter, initial encounter
CPT/HCPCS: 36415; 51702; 80048; 85025

== ENCOUNTER 2021-11-14 12:33 | Emergency (ER) | payer MEDICARE, OTHER ==
[~2021-11-14] VITALS: Ht 180 cm; Wt 83.6 kg
[~2021-11-14 12:33] MED LIST changes: +AMOX-355 PO
[2021-11-14 13:08] LABS: BASOPHILS # (AUTO) 0.1 10^3/uL (0.0-0.1); BASOPHILS % (AUTO) 1 % (0-10); EOSINOPHILS # (AUTO) 0.3 10^3/uL (0.0-0.3); EOSINOPHILS % (AUTO) 3 % (0-10); HEMATOCRIT 36 % (40-54); HEMOGLOBIN 12.1 g/dL (13.3-17.7); LYMPHOCYTES # (AUTO) 1.5 10^3/uL (1.0-4.0); LYMPHOCYTES % (AUTO) 17 % (12-44); MEAN CORPUSCULAR HEMOGLOBIN 30 pg (25-34); MEAN CORPUSCULAR HGB CONC 33 g/dL (32-36); MEAN CORPUSCULAR VOLUME 89 fL (80-99); MEAN PLATELET VOLUME 8.4 fL (9.0-12.2); MONOCYTES # (AUTO) 0.6 10^3/uL (0.0-1.0); MONOCYTES % (AUTO) 6 % (0-12); NEUTROPHILS # (AUTO) 6.6 10^3/uL (1.8-7.8); NEUTROPHILS % (AUTO) 73 % (42-75); PLATELET COUNT 348 10^3/uL (130-400)
[2021-11-14 13:10] LABS: POTASSIUM 3.7 MMOL/L (3.6-5.0)
[2021-11-14 13:11] LABS: CALCIUM 8.9 MG/DL (8.5-10.1)
--- NOTE | 2021-11-14 13:11 | ED GU-Male ---
General Stated Complaint: BLOOD IN URINE - PAINFUL URINATION Source: patient Exam Limitations: no limitations History of Present Illness Date Seen by Provider: Nov 14, 2021 Time Seen by Provider: 13:03 Initial Comments To ER with sensation of bladder fullness. He has had some issues recently with urinary tract infection/hematuria. He has a chronic indwelling Obando catheter for BPH and follows with urology out of [place]. His last visit here a few days ago he had a 22 Nauruan three-way Obando catheter placed for bladder irrigation. He had Ceftin given empirically. 2 organisms cultured from urine identified as Enterococcus and Klebsiella. His Ceftin was stopped and he was placed on Augmentin. We now have culture and sensitivity back showing these both sensitive to Levaquin. He denies any lightheadedness fevers chills or nausea. Stated that the urine in his bag was clear last night. Timing/Duration: just prior to arrival, getting worse Severity/Quality: moderate Location: unknown Activities at Onset: none Prior Genitourinary Problems: none Associated Symptoms: nausea/vomiting Allergies and Home Medications Allergies Coded Allergies: No Known Drug Allergies (Unverified , 10/23/18) Patient Home Medication List Home Medication List Reviewed: Yes Amlodipine Besylate (Amlodipine Besylate) 10 Mg Tablet, 10 MG PO DAILY, (Reported) Entered as Reported by: MARIA EUGENIA PINEDA on 10/23/18 1314 Amoxicillin/Potassium Clav (Augmentin 500-125 Tablet) 1 Each Tablet, 1 EACH PO BID Prescribed by: CALIXTO GUNTER on 11/10/21 1501 Apixaban (Eliquis) 5 Mg Tablet, 5 MG PO BID, (Reported) Entered as Reported by: MARIA EUGENIA PINEDA on 10/23/18 1314 Bicalutamide (Bicalutamide) 50 Mg Tablet, 50 MG PO DAILY, (Reported) Entered as Reported by: MARIA EUGENIA PINEDA on 10/23/18 1314 Calcium Carbonate/Vitamin D3 (Calcium 600 + Vit D 200 Tablet) 1 Each Tablet, 1 TAB PO DAILY, (Reported) Entered as Reported by: MARIA EUGENIA PINEDA on 10/23/18 1458 Cefdinir (Cefdinir) 300 Mg Capsule, 300 MG PO BID Prescribed by: CALIXTO GUNTER on 11/09/21 1252 Fosinopril Sodium (Fosinopril Sodium) 40 Mg Tablet, 20 MG PO DAILY, (Reported) Entered as Reported by: MARIA EUGENIA PINEDA on 10/23/18 1314 Gluc HCl/Csa/Osmin Hy/Hyalur AC (Glucosamine Chondroitin Cap) 1 Each Capsule, 1 CAP PO DAILY, (Reported) Entered as Reported by: MARIA EUGENIA PINEDA on 10/23/18 131 Hydrochlorothiazide (Hydrochlorothiazide) 25 Mg Tablet, 25 MG PO Q48H, (R eported) Entered as Reported by: MARIA EUGENIA PINEDA on 10/23/18 1458 Multivitamin (Multivitamins) 1 Each Tablet, 1 TAB PO DAILY, (Reported) Entered as Reported by: MARIA EUGENIA PINEDA on 10/23/18 131 Omeprazole (Omeprazole) 20 Mg Capsule.dr, 40 MG PO DAILY, (Reported) Entered as Reported by: MARIA EUGENIA PINEDA on 10/23/18 131 Pantoprazole Sodium (Protonix) 40 Mg Granpkt.dr, 40 MG PO DAILY Prescribed by: CALIXTO GUNTER on 11/09/21 1252 Potassium Gluconate (Potassium) 99 Mg Tablet, 99 MG PO DAILY, (Reported) Entered as Reported by: MARIA EUGENIA PINEDA on 10/23/18 1458 Prednisolone Acetate/Pf (Prednisolone Acet 1% Eye Drop) 5 Ml Drops.susp, 1 DROP OU BID, (Reported) Entered as Reported by: MARIA EUGENIA PINEDA on 10/23/18 131 Simvastatin (Simvastatin) 80 Mg Tablet, 40 MG PO HS, (Reported) Entered as Reported by: MARIA EUGENIA PINEDA on 10/23/18 131 Sucralfate (Carafate) 1 Gm Tablet, 1 GM PO QID Prescribed by: CALIXTO GUNTER on 11/09/21 1252 Trospium Chloride (Trospium Chloride) 20 Mg Tablet, 20 MG PO HS, (Reported) Entered as Reported by: MARIA EUGENIA PINEDA on 10/23/18 131 Review of Systems Review of Systems Constitutional: see HPI; No chills, No fever EENTM: see HPI Respiratory: no symptoms reported Cardiovascular: no symptoms reported Genitourinary: no symptoms reported Musculoskeletal: no symptoms reported Skin: no symptoms reported Psychiatric/Neurological: No Symptoms Reported Endocrine: No Symptoms Reported Hematologic/Lymphatic: No Symptoms Reported Past Pjipenh-Yivgga-Moijrr Hx Immunizations Up To Date Tetanus Booster (TDap): Unknown First/Initial COVID19 Vaccinat: 2020 Second COVID19 Vaccination Dylan: 2020 Third COVID19 Vaccination Date: December 2020 Seasonal Allergies Seasonal Allergies: No Past Medical History Surgery/Hospitalization HX: URINARY RETENTION, ATRIAL FIB Surgeries: Yes (dental surgery, kidney stones) Bladder Surgery, Eye Surgery, Gallbladder, Prostatectomy Respiratory: No Currently Using CPAP: No Currently Using BIPAP: No Cardiac: Yes (disputed irregular heart beat) Atrial Fibrillation, High Cholesterol, Hypertension Neurological: No Reproductive Disorders: No Sexually Transmitted Disease: No HIV/AIDS: No Genitourinary: Yes Benign Prostatic Hyperpl, Prostate Problems, Kidney Stones Gastrointestinal: No Gastroesophageal Reflux, Chronic Diarrhea, Irritable Bowel Musculoskeletal: Yes Arthritis Endocrine: No 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 8.0oz. 80.243926wn; 25.00 BMI Method:Stated General Appearance: WD/WN, no apparent distress HEENT: PERRL/EOMI, normal ENT inspection Neck: non-tender, full range of motion Respiratory: normal breath sounds, no respiratory distress, no accessory muscle use Gastrointestinal: normal bowel sounds, non tender Extremities: normal range of motion, non-tender Neurologic/Psychiatric: alert, normal mood/affect, oriented x 3 Skin: normal color, warm/dry Progress/Results/Core Measures Suspected Sepsis SIRS Temperature: Pulse: Respiratory Rate: Laboratory Tests 11/14/21 12:56: White Blood Count 9.0 Blood Pressure / Mean: Laboratory Tests 11/14/21 12:56: Creatinine 0.76, Platelet Count 348 Results/Orders Lab Results Laboratory Tests Test 11/14/21 12:56 Range/Units White Blood Count 9.0 4.3-11.0 10^3/uL Red Blood Count 4.07 L 4.30-5.52 10^6/uL Hemoglobin 12.1 L 13.3-17.7 g/dL Hematocrit 36 L 40-54 % Mean Corpuscular Volume 89 80-99 fL Mean Corpuscular Hemoglobin 30 25-34 pg Mean Corpuscular Hemoglobin Concent 33 32-36 g/dL Red Cell Distribution Width 13.2 10.0-14.5 % Platelet Count 348 130-400 10^3/uL Mean Platelet Volume 8.4 L 9.0-12.2 fL Immature Granulocyte % (Auto) 0 % Neutrophils (%) (Auto) 73 42-75 % Lymphocytes (%) (Auto) 17 12-44 % Monocytes (%) (Auto) 6 0-12 % Eosinophils (%) (Auto) 3 0-10 % Basophils (%) (Auto) 1 0-10 % Neutrophils # (Auto) 6.6 1.8-7.8 10^3/uL Lymphocytes # (Auto) 1.5 1.0-4.0 10^3/uL Monocytes # (Auto) 0.6 0.0-1.0 10^3/uL Eosinophils # (Auto) 0.3 0.0-0.3 10^3/uL Basophils # (Auto) 0.1 0.0-0.1 10^3/uL Immature Granulocyte # (Auto) 0.0 0.0-0.1 10^3/uL Sodium Level 134 L 135-145 MMOL/L Potassium Level 3.7 3.6-5.0 MMOL/L Chloride Level 105 98-107 MMOL/L Carbon Dioxide Level 18 L 21-32 MMOL/L Anion Gap 11 5-14 MMOL/L Blood Urea Nitrogen 13 7-18 MG/DL Creatinine 0.76 0.60-1.30 MG/DL Estimat Glomerular Filtration Rate 86 BUN/Creatinine Ratio 17 Glucose Level 101 70-105 MG/DL Calcium Level 8.9 8.5-10.1 MG/DL My Orders Orders - CALIXTO GUNTER APRN Ua Culture If Indicated (11/14/21 12:35) Levofloxacin Tablet (Levaquin Tablet) (11/14/21 12:45) Phenazopyridine Tablet (Pyridium Tablet) (11/14/21 13:15) Cbc With Automated Diff (11/14/21 13:03) Basic Metabolic Panel (11/14/21 13:03) Medications Given in ED Current Medications Medications Dose Ordered Sig/Maylin Route Start Time Stop Time Status Last Admin Dose Admin Levofloxacin 500 mg ONCE ONCE PO 11/14/21 12:45 11/14/21 12:46 DC 11/14/21 13:30 500 MG Phenazopyridine HCl 100 mg ONCE ONCE PO 11/14/21 13:15 11/14/21 13:16 DC 11/14/21 13:30 100 MG Vital Signs/I&O 11/14/21 12:43 Temp 36.4 Pulse 76 Resp 18 B/P (MAP) 179/86 (117) Pulse Ox 97 O2 Delivery Room Air Capillary Refill : Departure Communication (Admissions) On arrival there is blood within the Obando catheter tubing and he reports sensation of full bladder. The catheter was cleaned around the urethral meatus with chlorhexidine swab, was deflated (30 mill balloon) then inserted further and we got prompt return of some bloody urine. We then hand irrigated and got quite a bit of clot material out. Then hooked up to normal saline CBI. [id number] mL CBI complete urine is now draining clear he is asymptomatic we will discharged home with a prescription for Levaquin and to follow-up with his urologist from [place]. Impression Primary Impression: Hematuria Additional Impression: Obstructed Obando catheter Disposition: 01 HOME, SELF-CARE Condition: Stable Departure-Patient Inst. Decision time for Depature: 13:17 Referrals: STEFANO ARREAGA DO (PCP/Family) Primary Care Physician Patient Instructions: Blood in Urine (Hematuria), Adult ED Add. Discharge Instructions: 1. Call your urologist tomorrow to make an appointment to be seen. Stop the Augmentin antibiotic can change to the new one called Levaquin. Scripts Levofloxacin (Levofloxacin) 500 Mg Tablet 500 MG PO DAILY, #6 TAB Prov: CALIXTO GUNTER APRN 11/14/21 Copy Copies To 1: STEFANO ARREAGA PETER J APRN Nov 14, 2021 13:11
[2021-11-14 13:15] LABS: CREATININE SERUM 0.76 MG/DL (0.60-1.30)
[2021-11-14] MEDS ORDERED: PHENAZOPYRIDINE 100 MG (PYRIDIUM) TABLET PO ONE (13:15)
[2021-11-14] MEDS ORDERED: LEVO500T81 PO (14:18)
[2021-11-14 14:50] VITALS: BP 180/80
== END 2021-11-14 14:50 | disposition home or self-care (01) ==
LOC: EDUNIT# 12:33 → ER 12:35
DX: R31.9 Hematuria, unspecified (principal); T83.098A Other mechanical complication of other urinary catheter, initial encounter
CPT/HCPCS: 36415; 80048; 85025; 99283

== ENCOUNTER 2021-11-25 15:11 | Emergency (ER) | payer MEDICARE, OTHER ==
[~2021-11-25 15:11] MED LIST changes: +LEVO500T81 PO
--- NOTE | 2021-11-25 15:39 | ED GU-Female ---
General Chief Complaint: - Reproductive Stated Complaint: URINATING BLOOD Nursing Triage Note: PT AMB TO [facility] 5 WITH CANE WITH WITH C/O LESS URINARY OUTPUT IN CATHETER TODAY. PTS CALLED DR NIEVES AND SHE WAS SENDING AN OUTPATIENT ORDER HERE BUT THEY CAME TO ER INSTEAD. PTS STATES HE HAS HAD URINE IN HIS BRIEF TODAY ALSO WHICH IS NOT NORMAL Source: patient, family Exam Limitations: no limitations (MARY DOBSON MED STUDENT) History of Present Illness Date Seen by Provider: Nov 25, 2021 Time Seen by Provider: 15:30 Initial Comments Mr. De La Cruz is an 89 yo male who presents to the ED today due to decreased urine output and some abdominal discomfort. He was recently seen in ED for similar complaints. He has a 3 way indwelling catheter that became obstructed due to clots. It was irregated and he was started on medication after he had sensitivities for urine culture result. Today he is concerned because he does not seem to be producing any urine. He probably has about 50-100ml of urine in the bag from all day today. His urine is quite dark. He also states that urine has been leaking out of the meatus around the catheter and has gone through about 5 depends. He is not currently on blood thinners. He does not have any other symptoms besides some constipation which seems chronic for him. Bladder scan in the room showed his bladder was almost completely empty. (MARY DOBSON MED STUDENT) Initial Comments Patient's primary concern today is the discomfort he seems to have with the catheter and leaking of urine around the catheter through the meatus. He has had significant issues with his catheter and bladder function over the past couple of months. He had a bladder calcification removed on October 06. Obando catheter was left in after the procedure. [place] was [place] Dr. Vega is his primary urologist. On November 03 he had the catheter replaced in day surgery. On November 09 he was seen and evaluated for GI bleed, hematuria, and urinary tract infection he was placed on cefdinir. He had resume d his Eliquis x3 doses prior to that visit. He returned to the ER on November 10 with clotting of his catheter and bladder. A three-way catheter was placed and was irrigated with 1 L of fluid. Based on a preliminary culture results he was changed to Augmentin that day. He had discontinued Eliquis. On November 14 he was seen again in the ER for problems related to the catheter. Catheter was again irrigated. Culture sensitivities had returned and he was changed to Levaquin for treatment of his bladder infection. He has since completed that antibiotic. On November 17 bethanechol was filled. Patient now has the problems described above. (KY MANZO MD) Allergies and Home Medications Allergies Coded Allergies: No Known Drug Allergies (Unverified , 10/23/18) Patient Home Medication List Home Medication List Reviewed: Yes (KY MANZO MD) Amlodipine Besylate (Amlodipine Besylate) 10 Mg Tablet, 10 MG PO DAILY, (Reported) Entered as Reported by: MARIA EUGENIA PINEDA on 10/23/18 1314 Amoxicillin/Potassium Clav (Augmentin 500-125 Tablet) 1 Each Tablet, 1 EACH PO BID Prescribed by: CALIXTO GUNTER on 11/10/21 1501 Apixaban (Eliquis) 5 Mg Tablet, 5 MG PO BID, (Reported) Entered as Reported by: MARIA EUGENIA PINEDA on 10/23/18 1314 Bicalutamide (Bicalutamide) 50 Mg Tablet, 50 MG PO DAILY, (Reported) Entered as Reported by: MARIA EUGENIA PINEDA on 10/23/18 1314 Calcium Carbonate/Vitamin D3 (Calcium 600 + Vit D 200 Tablet) 1 Each Tablet, 1 TAB PO DAILY, (Reported) Entered as Reported by: MARIA EUGENIA PNIEDA on 10/23/18 1458 Cefdinir (Cefdinir) 300 Mg Capsule, 300 MG PO BID Prescribed by: CALIXTO GUNTER on 11/09/21 1252 Fosinopril Sodium (Fosinopril Sodium) 40 Mg Tablet, 20 MG PO DAILY, (Reported) Entered as Reported by: MARIA EUGENIA PINEDA on 10/23/18 1314 Gluc HCl/Csa/Osmin Hy/Hyalur AC (Glucosamine Chondroitin Cap) 1 Each Capsule, 1 CAP PO DAILY, (Reported) Entered as Reported by: MARIA EUGENIA PINEDA on 10/23/18 1315 Hydrochlorothiazide (Hydrochlorothiazide) 25 Mg Tablet, 25 MG PO Q48H, (Reported) Entered as Reported by: MARIA EUGENIA PINEDA on 10/23/18 1458 Hyoscyamine Sulfate (Levsin-Sl) 0.125 Mg Tab.subl, 1-2 TAB SL Q4H PRN for SPASMS Prescribed by: KY NAVARRO on 11/25/21 1918 Levofloxacin (Levofloxacin) 500 Mg Tablet, 500 MG PO DAILY Prescribed by: CALIXTO GUNTER on 11/14/21 1418 Multivitamin (Multivitamins) 1 Each Tablet, 1 TAB PO DAILY, (Reported) Entered as Reported by: MARIA EUGENIA PINEDA on 10/23/18 1315 Omeprazole (Omeprazole) 20 Mg Capsule.dr, 40 MG PO DAILY, (Reported) Entered as Reported by: MARIA EUGENIA PINEDA on 10/23/18 1314 Pantoprazole Sodium (Protonix) 40 Mg Granpkt.dr, 40 MG PO DAILY Prescribed by: CALIXTO GUNTER on 11/09/21 1252 Potassium Gluconate (Potassium) 99 Mg Tablet, 99 MG PO DAILY, (Reported) Entered as Reported by: MARIA EUGENIA PINEDA on 10/23/18 1458 Prednisolone Acetate/Pf (Prednisolone Acet 1% Eye Drop) 5 Ml Drops.susp, 1 DROP OU BID, (Reported) Entered as Reported by: MARIA EUGENIA PINEDA on 10/23/18 1314 Simvastatin (Simvastatin) 80 Mg Tablet, 40 MG PO HS, (Reported) Entered as Reported by: MARIA EUGENIA PINEDA on 10/23/18 1314 Sucralfate (Carafate) 1 Gm Tablet, 1 GM PO QID Prescribed by: CALIXTO GUNTER on 11/09/21 1252 Trospium Chloride (Trospium Chloride) 20 Mg Tablet, 20 MG PO HS, (Reported) Entered as Reported by: MARIA EUGENIA PINEDA on 10/23/18 1314 Review of Systems Review of Systems Constitutional: No chills, No fever EENTM: No hearing loss, No vision loss Respiratory: No cough, No short of breath Cardiovascular: No chest pain, No palpitations Gastrointestinal: abdominal pain (superpubic); No constipation; diarrhea (chronic); No nausea, No vomiting Genitourinary: denies hematuria; incontinence (leaking), other (sensation of full bladder, inability to pass urine. ) Musculoskeletal: No joint pain, No joint swelling Skin: No lesions, No rash Psychiatric/Neurological: Denies Headache, Denies Numbness (MARY DOBSON MED STUDENT) Genitourinary: see HPI Hematologic/Lymphatic: See HPI (KY MANZO MD) Past Esayjun-Mzyrac-Okllzd Hx Patient Social History Tobacco Use?: No Use of E-Cig and/or Vaping dev: No Substance use?: No Alcohol Use?: No Pt feels they are or have been: No (MARY DOBSON STUDENT) Immunizations Up To Date Tetanus Booster (TDap): Unknown Influenza Vaccine Up-to-Date: Yes; Up-to-Date First/Initial COVID19 Vaccinat: 2020 Second COVID19 Vaccination Dylan: 2020 Third COVID19 Vaccination Date: 2020 (MARY DOBSON) Seasonal Allergies Seasonal Allergies: No (MARY DOBSON) Past Medical History Surgery/Hospitalization HX: URINARY RETENTION, ATRIAL FIB Surgeries: Yes (dental surgery, kidney stones) Bladder Surgery, Eye Surgery, Gallbladder, Prostatectomy Respiratory: No Currently Using CPAP: No Currently Using BIPAP: No Cardiac: Yes (disputed irregular heart beat) Atrial Fibrillation, High Cholesterol, Hypertension Neurological: No Reproductive Disorders: No Sexually Transmitted Disease: No HIV/AIDS: No Genitourinary: Yes Benign Prostatic Hyperpl, Prostate Problems, Kidney Stones Gastrointestinal: No Gastroesophageal Reflux, Chronic Diarrhea, Irritable Bowel Musculoskeletal: Yes Arthritis Endocrine: No 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 Hearing Impairment: Hard of Hearing Cancer: Yes Prostate Did You Recieve Any Treatments: Yes What Type of Treatment Did You: Chemotherapy, Radiation, Surgical Intervention Psychosocial: No Integumentary: No Adverse Reaction/Blood Tranf: No (MARY DOBSON) Family Medical History FHx: heart disease Heart G8 BROTHER G8 SISTER Myocardial infarction 19 FATHER 19 MOTHER G8 BROTHER G8 SISTER Physical Exam Vital Signs Vital Signs - First Documented 11/25/21 15:17 Temp 35.9 Pulse 81 Resp 20 B/P (MAP) 173/91 (118) Pulse Ox 96 (KY MANZO MD) Vital Signs Capillary Refill : (MARY DOBSON STUDENT) Height, Weight, BMI Height: 5'10.00" Weight: 177lbs. 8.0oz. 80.529396zc; 25.00 BMI Method:Stated General Appearance: WD/WN, mild distress (uncomfortable) Cardiovascular: regular rate, rhythm, no edema, no murmur Respiratory: chest non-tender, lungs clear, normal breath sounds Gastrointestinal: normal bowel sounds, soft; No distended; tenderness (in superpubic area) Genital/Rectal: other (Catheter is in place. There is no redness or discharge at meatus. However, there is urine leaking from meatus around catheter) Extremities: non-tender, no pedal edema, no calf tenderness Neurologic/Psychiatric: alert, normal mood/affect, oriented x 3 Skin: normal color, warm/dry (MARY DOBSON [employer] STUDENT) Progress/Results/Core Measures Suspected Sepsis SIRS Temperature: Pulse: 81 Respiratory Rate: 20 Blood Pressure 173 /91 Mean: 118 (OLYAMARY GARCIA [employer] STUDENT) Results/Orders Lab Results Laboratory Tests Test 11/25/21 16:03 11/25/21 16:06 Range/Units White Blood Count 8.4 4.3-11.0 10^3/uL Red Blood Count 3.83 L 4.30-5.52 10^6/uL Hemoglobin 11.4 L 13.3-17.7 g/dL Hematocrit 34 L 40-54 % Mean Corpuscular Volume 89 80-99 fL Mean Corpuscular Hemoglobin 30 25-34 pg Mean Corpuscular Hemoglobin Concent 33 32-36 g/dL Red Cell Distribution Width 13.8 10.0-14.5 % Platelet Count 275 130-400 10^3/uL Mean Platelet Volume 8.5 L 9.0-12.2 fL Immature Granulocyte % (Auto) 0 % Neutrophils (%) (Auto) 77 H 42-75 % Lymphocytes (%) (Auto) 13 12-44 % Monocytes (%) (Auto) 7 0-12 % Eosinophils (%) (Auto) 2 0-10 % Basophils (%) (Auto) 1 0-10 % Neutrophils # (Auto) 6.5 1.8-7.8 10^3/uL Lymphocytes # (Auto) 1.1 1.0-4.0 10^3/uL Monocytes # (Auto) 0.6 0.0-1.0 10^3/uL Eosinophils # (Auto) 0.2 0.0-0.3 10^3/uL Basophils # (Auto) 0.0 0.0-0.1 10^3/uL Immature Granulocyte # (Auto) 0.0 0.0-0.1 10^3/uL Prothrombin Time 13.4 12.2-14.7 SEC INR Comment 1.0 0.8-1.4 Sodium Level 135 135-145 MMOL/L Potassium Level 3.8 3.6-5.0 MMOL/L Chloride Level 104 98-107 MMOL/L Carbon Dioxide Level 21 21-32 MMOL/L Anion Gap 10 5-14 MMOL/L Blood Urea Nitrogen 16 7-18 MG/DL Creatinine 0.77 0.60-1.30 MG/DL Estimat Glomerular Filtration Rate 86 BUN/Creatinine Ratio 21 Glucose Level 101 70-105 MG/DL Calcium Level 8.4 L 8.5-10.1 MG/DL C-Reactive Protein High Sensitivity 2.22 H 0.00-0.50 MG/DL Urine Color YELLOW Urine Clarity CLEAR Urine pH 6.0 5-9 Urine Specific [place] 1.015 L 1.016-1.022 Urine Protein 2+ H NEGATIVE Urine Glucose (UA) NEGATIVE NEGATIVE Urine Ketones NEGATIVE NEGATIVE Urine Nitrite NEGATIVE NEGATIVE Urine Bilirubin NEGATIVE NEGATIVE Urine Urobilinogen 0.2 < = 1.0 MG/DL Urine Leukocyte Esterase 2+ H NEGATIVE Urine RBC (Auto) 3+ H NEGATIVE Urine RBC 10-25 H /HPF Urine WBC 5-10 H /HPF Urine Squamous Epithelial Cells NONE /HPF Urine Renal Epithelial Cells NONE /HPF Urine Crystals NONE /LPF Urine Bacteria NEGATIVE /HPF Urine Casts NONE /LPF Urine Mucus NEGATIVE /LPF Urine Culture Indicated NO (KY MANZO MD) My Orders Orders - KY MANZO MD Ua Culture If Indicated (11/25/21 15:34) Ed Iv/Invasive Line Start (11/25/21 15:51) Basic Metabolic Panel (11/25/21 15:51) Cbc With Automated Diff (11/25/21 15:51) Hs C Reactive Protein (11/25/21 15:51) Protime With Inr (11/25/21 15:51) Us Pelvic Non-Ob [id number] (11/25/21 15:51) Hyoscyamine Sl Tablet (Levsin Sl Tablet) (11/25/21 17:30) Lidocaine 2% (Urojet) (Xylocaine Urojet) (11/25/21 19:15) Obando Cath (11/25/21 19:03) (KY MANZO MD) Medications Given in ED (KY MANZO MD) Vital Signs/I&O (YK MANZO MD) Vital Signs/I&O Capillary Refill : (OLYAMARY MED STUDENT) Blood Pressure Mean: 118 Progress Note : Progress Note Urinalysis demonstrated no evidence of significant infection. Three-way catheter was flushed with 60 mL of saline. Saline flushed without difficulty and drained into the catheter canister. There was 1 tiny clot in the urine to that flushed, but no significant hematuria or clot burden. Labs were reviewed. Bedside bladder scan demonstrated no bladder volume. It was uncertain if this was due to clot occupying the bladder or simply a collapsed bladder. An offi cial ultrasound was obtained which revealed a collapsed bladder with thickened wall against the catheter bulb. I engaged in long discussion with Dr. Nieves, patient, patient's , and a Dr. Vega, his urologist in [place]. Various options for care were discussed including removal of the catheter, starting or continuing to withhold Eliquis, stopping bethanechol, continuing Levsin, and replacing the three-way catheter that has a larger bulb with a smaller 20 Azerbaijani 2 lm catheter with a smaller bulb. Patient elects to stay off of Eliquis due to notable risk factors and replace the three-way catheter with the smaller 20 Azerbaijani catheter. He also agrees to stop bethanechol and start Levsin. Patient and his both felt lifestyle would be much better leaving the catheter in, especially if a leg bag could be used. Leg bag was dispensed and education provided. See discharge instructions for further discussion. I spent approximately 45 minutes in consultation with Dr. Nieves, patient's family including his granddaughter and , patient, and Dr. Vega. (KY MANZO MD) Diagnostic Imaging Diagonstic Imaging: Ultrasound Plain Films/CT/US/NM/MRI: pelvis Comments Ultrasound discussed with the tar processing technician and report reviewed. See report below: NAME: ANABEL DE LA CRUZ MED REC#: [id number] PT STATUS: REG ER : [id number] PHYSICIAN: KY MANZO MD ADMIT DATE: 11/25/21/ER Signed Date of Exam:11/25/21 PELVIC NON-OB [id number] PELVIC NON-OB [id number] INDICATION: Hematuria. COMPARISON: CT abdomen and pelvis from 11/09/2021. FINDINGS AND IMPRESSION: 1. Obando catheter is in place within the urinary bladder, and there is no appreciable fluid or debris within the contracted urinary bladder. 2. Diffuse wall thickening of the urinary bladder is unchanged. Dictated by: Dictated on workstation # [id number] Dict: 11/25/21 1653 Trans: 11/25/21 1713 [id number] Interpreted by: KATARINA CROFT MD (KY MANZO MD) Departure Impression Primary Impression: Bladder spasm Additional Impressions: Pelvic pain History of hematuria Atrial fibrillation Qualified Codes: I48.91 - Unspecified atrial fibrillation Disposition: HOME, SELF-CARE Condition: Improved Departure-Patient Inst. Decision time for Depature: 19:12 (KY MANZO MD) Referrals: STEFANO NIEVES DO (PCP/Family) Primary Care Physician Patient Instructions: How to Care for Your Obando Catheter, Male Add. Discharge Instructions: 1. Follow-up with Dr. NIEVES next week and with your urologist as soon as possible. 2. Stop bethanechol (Urecholine). This medication is likely causing some spasming and increasing your pain. 3. You may use Levsin (hyoscyamine) as prescribed for bladder spasming and bladder pain. It is a dissolvable tablet you can place under the tongue. 4. Continue to drink plenty of clear liquids to help flush out your bladder it regularly. 5. Stop Eliquis. If you decide to restart Eliquis, please discuss with Dr. Nieves first. The risks of this medication likely are worse than the benefits at this point in time due to your recent history of gastrointestinal bleeding, bladder bleeding, and possible fall risk as you age. 6. Empty your catheter bag or container often. Try to keep the bag or canister below the level of your bladder as much as possible. 7. Call with questions or concerns. Return to the ER if you have any worsening symptoms or worsening complications. All discharge instructions reviewed with patient and/or family. Voiced understanding. Scripts Hyoscyamine Sulfate (Levsin-Sl) 0.125 Mg Tab.subl 1-2 TAB SL Q4H PRN for SPASMS, #20 TAB 1 Refill Prov: KY MANZO MD 11/25/21 Medical Student Attestation and Attending Note: I have personally interviewed and examined this patient along with Mary Dobson, MS 4. I have reviewed student documentation including history, phy sical, and assessments. I agree with the documentation except where otherwise noted. Exam: General: Alert, oriented, no acute distress, well developed HEENT: Normocephalic and atraumatic Heart: Regular rate and rhythm without murmur Lungs: Clear to auscultation bilaterally with normal effort Genital: Obando catheter in place. No obvious inflammatory changes, leaking of urine noted around the catheter via the meatus. Three-way catheter flushed with 60 mL normal saline without difficulty. Tiny clot was noted during flush. Abdomen: Soft, nontender, nondistended, normal bowel sounds Neuropsych: Alert, oriented, no focal deficits Skin: Warm and dry without rashes (KY MANZO MD) Copy Copies To 1: STEFANO NIEVES DO Copies To 2: AMANDA CORONA MD FACP FAC CCDS MARY DOBSON MED STUDENT Nov 25, 2021 15:39 KY MANZO MD Nov 25, 2021 19:17
[2021-11-25 16:12] LABS: BILIRUBIN,URINE NEGATIVE (NEGATIVE); CLARITY,URINE CLEAR; COLOR,URINE YELLOW; GLUCOSE, URINE (UA) NEGATIVE (NEGATIVE); KETONES,URINE NEGATIVE (NEGATIVE); LEUKOCYTE ESTERASE ,URINE 2+ (NEGATIVE); NITRITE,URINE NEGATIVE (NEGATIVE); PROTEIN,URINE 2+ (NEGATIVE)
[2021-11-25 16:12] LABS: BASOPHILS % (AUTO) 1 % (0-10); EOSINOPHILS # (AUTO) 0.2 10^3/uL (0.0-0.3); EOSINOPHILS % (AUTO) 2 % (0-10); HEMATOCRIT 34 % (40-54); HEMOGLOBIN 11.4 g/dL (13.3-17.7); LYMPHOCYTES # (AUTO) 1.1 10^3/uL (1.0-4.0); LYMPHOCYTES % (AUTO) 13 % (12-44); MEAN CORPUSCULAR HEMOGLOBIN 30 pg (25-34); MEAN CORPUSCULAR HGB CONC 33 g/dL (32-36); MEAN CORPUSCULAR VOLUME 89 fL (80-99); MEAN PLATELET VOLUME 8.5 fL (9.0-12.2); MONOCYTES # (AUTO) 0.6 10^3/uL (0.0-1.0); MONOCYTES % (AUTO) 7 % (0-12); NEUTROPHILS # (AUTO) 6.5 10^3/uL (1.8-7.8); NEUTROPHILS % (AUTO) 77 % (42-75); PLATELET COUNT 275 10^3/uL (130-400); WHITE BLOOD COUNT 8.4 10^3/uL (4.3-11.0)
[2021-11-25 16:19] LABS: BACTERIA,URINE NEGATIVE /HPF
[2021-11-25 16:22] LABS: POTASSIUM 3.8 MMOL/L (3.6-5.0)
[2021-11-25 16:23] LABS: CALCIUM 8.4 MG/DL (8.5-10.1)
[2021-11-25 16:25] LABS: PROTHROMBIN TIME PATIENT 13.4 SEC (12.2-14.7)
[2021-11-25 16:27] LABS: CREATININE SERUM 0.77 MG/DL (0.60-1.30)
--- NOTE | 2021-11-25 16:57 | Diagnostic Imaging Report ---
US PELVIC NON-OB [id number] INDICATION: Hematuria. COMPARISON: CT abdomen and pelvis from 11/09/2021. FINDINGS AND IMPRESSION: 1. Obando catheter is in place within the urinary bladder, and there is no appreciable fluid or debris within the contracted urinary bladder. 2. Diffuse wall thickening of the urinary bladder is unchanged. Dictated by: Dictated on workstation # [id number]
[2021-11-25] MEDS: HYOSCYAMINE 0.125 MG (LEVSIN) TAB SL ONE (17:28)
[2021-11-25] MEDS ORDERED: HYOS0.1283 SL (19:18)
[2021-11-25] MEDS: LIDOCAINE UROJET 2% GEL 10 ML PKG TOP ONE (19:25)
[2021-11-25 19:40] VITALS: BP 170/100
== END 2021-11-25 19:47 | disposition home or self-care (01) ==
LOC: EDUNIT# 15:11 → ER 15:12
DX: N32.89 Other specified disorders of bladder (principal); R10.2 Pelvic and perineal pain; I48.91 Unspecified atrial fibrillation
CPT/HCPCS: 36415; 51702; 76857; 80048; 81000; 85025; 85610; 86141

== ENCOUNTER 2022-01-22 14:35 | Observation (INO) | payer MEDICARE, OTHER ==
[~2022-01-22] VITALS: Ht 180.3 cm; Wt 78.2 kg
[~2022-01-22 14:35] MED LIST changes: +HYOS0.1283 SL
--- NOTE | 2022-01-22 14:58 | ED Syncope ---
General Chief Complaint: Dizziness/Syncope Stated Complaint: SYNCOPE Source of Information: Patient Exam Limitations: No Limitations History of Present Illness Date Seen by Provider: January 22, 2022 Time Seen by Provider: 14:34 Initial Comments Patient to the ER by EMS from home where he was walking down the hallway with his to go to the bathroom. He has an indwelling Obando catheter. He had a syncopal episode and his lowered him to the floor. He did not strike his head. He has a history of atrial fibrillation and had a syncopal episode about 5 or 6 months ago. He is on Eliquis. He did not have any chest pain, shortness of breath, nausea or weakness. He noted that Dr. Hernández his chemical research technician did re cently increase his water pill. Allergies and Home Medications Allergies Coded Allergies: No Known Drug Allergies (Unverified , 10/23/18) Patient Home Medication List Home Medication List Reviewed: Yes Amlodipine Besylate (Amlodipine Besylate) 10 Mg Tablet, 10 MG PO DAILY, (Reported) Entered as Reported by: MARIA EUGENIA PINEDA on 10/23/18 1314 Amoxicillin/Potassium Clav (Augmentin 500-125 Tablet) 1 Each Tablet, 1 EACH PO BID Prescribed by: CALIXTO GUNTER on 11/10/21 1501 Apixaban (Eliquis) 5 Mg Tablet, 5 MG PO BID, (Reported) Entered as Reported by: MARIA EUGENIA PINEDA on 10/23/18 1314 Bicalutamide (Bicalutamide) 50 Mg Tablet, 50 MG PO DAILY, (Reported) Entered as Reported by: MARIA EUGENIA PINEDA on 10/23/18 1314 Calcium Carbonate/Vitamin D3 (Calcium 600 + Vit D 200 Tablet) 1 Each Tablet, 1 TAB PO DAILY, (Reported) Entered as Reported by: MAIRA EUGENIA PINEDA on 10/23/18 1458 Cefdinir (Cefdinir) 300 Mg Capsule, 300 MG PO BID Prescribed by: CALIXTO GUNTER on 11/09/21 1252 Fosinopril Sodium (Fosinopril Sodium) 40 Mg Tablet, 20 MG PO DAILY, (Reported) Entered as Reported by: MARIA EUGENIA PINEDA on 10/23/18 1314 Gluc HCl/Csa/Osmin Hy/Hyalur AC (Glucosamine Chondroitin Cap) 1 Each Capsule, 1 CAP PO DAILY, (Reported) Entered as Reported by: MARIA EUGENIA PINEDA on 10/23/18 131 Hydrochlorothiazide (Hydrochlorothiazide) 25 Mg Tablet, 25 MG PO Q48H, (Reported) Entered as Reported by: MARIA EUGENIA PINEDA on 10/23/18 145 Hyoscyamine Sulfate (Levsin-Sl) 0.125 Mg Tab.subl, 1-2 TAB SL Q4H PRN for SPASMS Prescribed by: KY NAVARRO on 11/25/21 191 Levofloxacin (Levofloxacin) 500 Mg Tablet, 500 MG PO DAILY Prescribed by: CALIXTO GUNTER on 11/14/21 1418 Multivitamin (Multivitamins) 1 Each Tablet, 1 TAB PO DAILY, (Reported) Entered as Reported by: MARIA EUGENIA PINEDA on 10/23/18 131 Omeprazole (Omeprazole) 20 Mg Capsule.dr, 40 MG PO DAILY, (Reported) Entered as Reported by: MARIA EUGENIA PINEDA on 10/23/18 131 Pantoprazole Sodium (Protonix) 40 Mg Granpkt.dr, 40 MG PO DAILY Prescribed by: CALIXTO GUNTER on 11/09/21 1252 Potassium Gluconate (Potassium) 99 Mg Tablet, 99 MG PO DAILY, (Reported) Entered as Reported by: MARIA EUGENIA IPNEDA on 10/23/18 145 Prednisolone Acetate/Pf (Prednisolone Acet 1% Eye Drop) 5 Ml Drops.susp, 1 DROP OU BID, (Reported) Entered as Reported by: MARIA EUGENIA PINEDA on 10/23/18 131 Simvastatin (Simvastatin) 80 Mg Tablet, 40 MG PO HS, (Reported) Entered as Reported by: MARIA EUGENIA PINEDA on 10/23/18 131 Sucralfate (Carafate) 1 Gm Tablet, 1 GM PO QID Prescribed by: CALIXTO GUNTER on 11/09/21 1252 Trospium Chloride (Trospium Chloride) 20 Mg Tablet, 20 MG PO HS, (Reported) Entered as Reported by: MARIA EUGENIA PINEDA on 10/23/18 131 Review of Systems Constitutional: No chills, No diaphoresis, No fever, No malaise, No weakness EENTM: No ear discharge, No ear pain Respiratory: No cough, No short of breath Cardiovascular: No chest pain, No edema; syncope Gastrointestinal: No abdominal pain, No constipation, No diarrhea, No nausea Genitourinary: No discharge, No dysuria All Other Systems Reviewed Negative Unless Noted: Yes Past Rnskfua-Pwemrp-Wmdcjc Hx Patient Social History Tobacco Use?: No Use of E-Cig and/or Vaping dev: No Immunizations Up To Date Tetanus Booster (TDap): Unknown First/Initial COVID19 Vaccinat: 2020 Second COVID19 Vaccination Dylan: 2020 Third COVID19 Vaccination Date: 2020 Seasonal Allergies Seasonal Allergies: No Past Medical History Surgery/Hospitalization HX: URINARY RETENTION, ATRIAL FIB Surgeries: Yes (dental surgery, kidney stones) Bladder Surgery, Eye Surgery, Gallbladder, Prostatectomy Respiratory: No Currently Using CPAP: No Currently Using BIPAP: No Cardiac: Yes (disputed irregular heart beat) Atrial Fibrillation, High Cholesterol, Hypertension Neurological: No Reproductive Disorders: No Sexually Transmitted Disease: No HIV/AIDS: No Genitourinary: Yes Benign Prostatic Hyperpl, Prostate Problems, Kidney Stones Gastrointestinal: No Gastroesophageal Reflux, Chronic Diarrhea, Irritable Bowel Musculoskeletal: Yes Arthritis Endocrine: No 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 Hearing Impairment: Hard of Hearing Cancer: Yes Prostate Did You Recieve Any Treatments: Yes What Type of Treatment Did You: Chemotherapy, Radiation, Surgical Intervention Psychosocial: No Integumentary: No Adverse Reaction/Blood Tranf: No Family Medical History FHx: heart disease Heart G8 BROTHER G8 SISTER Myocardial infarction 19 FATHER 19 MOTHER G8 BROTHER G8 SISTER Physical Exam Vital Signs Vital Signs - First Documented 01/22/22 14:40 Temp 36.3 Pulse 85 Resp 20 B/P (MAP) 138/75 (96) Pulse Ox 95 Capillary Refill : Height, Weight, BMI Height: 5'10.00" Weight: 177lbs. 8.0oz. [id number]; 25.00 BMI Method:Stated General Appearance: No Apparent Distress, WD/WN HEENT: PERRL/EOMI, TMs Normal (Negative for hemotympanum or mayo sign), Normal ENT Inspection, Pharynx Normal, Moist Mucous Membranes Neck: Full Range of Motion, Normal Inspection, Non Tender Cardiovascular: Regular Rate, Rhythm, No Edema, Normal Peripheral Pulses Respiratory: Lungs Clear, Normal Breath Sounds, No Accessory Muscle Use, No Respiratory Distress Gastrointestinal: Normal Bowel Sounds, Non Tender, Soft Extremities: Normal Capillary Refill, Normal Inspection, Pedal Edema (1+ bipedal edema) Neurologic/Psychiatric: Alert, Oriented x3 Cranial Nerves: Normal Hearing, Normal Speech, PERRL Motor/Sensory: No Motor Deficit, No Sensory Deficit Skin: Normal Color, Warm/Dry Progress/Results/Core Measures Results/Orders Lab Results Laboratory Tests Test 01/22/22 14:45 Range/Units White Blood Count 10.0 4.3-11.0 10^3/uL Red Blood Count 4.26 L 4.30-5.52 10^6/uL Hemoglobin 12.5 L 13.3-17.7 g/dL Hematocrit 38 L 40-54 % Mean Corpuscular Volume 89 80-99 fL Mean Corpuscular Hemoglobin 29 25-34 pg Mean Corpuscular Hemoglobin Concent 33 32-36 g/dL Red Cell Distribution Width 14.2 10.0-14.5 % Platelet Count 257 130-400 10^3/uL Mean Platelet Volume 8.7 L 9.0-12.2 fL Immature Granulocyte % (Auto) 1 % Neutrophils (%) (Auto) 81 H 42-75 % Lymphocytes (%) (Auto) 11 L 12-44 % Monocytes (%) (Auto) 5 0-12 % Eosinophils (%) (Auto) 2 0-10 % Basophils (%) (Auto) 1 0-10 % Neutrophils # (Auto) 8.2 H 1.8-7.8 10^3/uL Lymphocytes # (Auto) 1.1 1.0-4.0 10^3/uL Monocytes # (Auto) 0.5 0.0-1.0 10^3/uL Eosinophils # (Auto) 0.2 0.0-0.3 10^3/uL Basophils # (Auto) 0.1 0.0-0.1 10^3/uL Immature Granulocyte # (Auto) 0.1 0.0-0.1 10^3/uL Prothrombin Time 14.0 12.2-14.7 SEC INR Comment 1.0 0.8-1.4 Sodium Level 140 135-145 MMOL/L Potassium Level 3.2 L 3.6-5.0 MMOL/L Chloride Level 105 98-107 MMOL/L Carbon Dioxide Level 20 L 21-32 MMOL/L Anion Gap 15 H 5-14 MMOL/L Blood Urea Nitrogen 16 7-18 MG/DL Creatinine 0.79 0.60-1.30 MG/DL Estimat Glomerular Filtration Rate 85 BUN/Creatinine Ratio 20 Glucose Level 156 H 70-105 MG/DL Calcium Level 9.1 8.5-10.1 MG/DL Corrected Calcium 9.5 8.5-10.1 MG/DL Total Bilirubin 0.4 0.1-1.0 MG/DL Aspartate Amino Transf (AST/SGOT) 19 5-34 U/L Alanine Aminotransferase (ALT/SGPT) 8 0-55 U/L Alkaline Phosphatase 65 40-136 U/L Troponin I 0.733 *H <0.028 NG/ML C-Reactive Protein High Sensitivity 1.19 H 0.00-0.50 MG/DL B-Type Natriuretic Peptide 345.0 H <100.0 PG/ML Total Protein 6.9 6.4-8.2 GM/DL Albumin 3.5 3.2-4.5 GM/DL My Orders Orders - ESTELA DIAZ Ekg Tracing (01/22/22 14:40) Cbc With Automated Diff (01/22/22 14:48) Continuous Ekg Monitoring (01/22/22 14:48) Comprehensive Metabolic Panel (01/22/22 14:48) Hs C Reactive Protein (01/22/22 14:48) Orthostatic Vital Signs (Adult (01/22/22 14:48) Chest 1 View, Ap/Pa Only (01/22/22 14:48) Bnp [place] (01/22/22 14:48) Troponin I [place] (01/22/22 14:48) Protime With Inr (01/22/22 14:48) Ed Iv/Invasive Line Start (01/22/22 15:39) Ns Iv 500 Ml (Sodium Chloride 0.9%) (01/22/22 15:45) Medications Given in ED Current Medications Medications Dose Ordered Sig/Maylin Route Start Time Stop Time Status Last Admin Dose Admin Sodium Chloride 500 ml @ 0 mls/hr Q0M ONCE IV 01/22/22 15:45 01/22/22 15:46 DC 01/22/22 15:50 500 MLS/HR Vital Signs/I&O 01/22/22 01/22/22 14:40 15:18 Temp 36.3 Pulse 85 98 97 96 Resp 20 B/P (MAP) 138/75 (96) 133/96 (108) 127/65 (85) 97/54 (68) Pulse Ox 95 Progress Progress Note : Time: 15:22 Progress Note If he has a negative troponin then 3 points Miller Syncope Risk Score. Medium risk; 8.1% risk of 30-day serious adverse event. Set of orthostatics, EKG, labs and chest x-ray. He is asymptomatic at this time. No evidence of overt head trauma. Risks, benefits and alternatives discussed about imaging of the head and he states since he was lowered to the floor and did not hit his head he has declined imaging. Initial ECG Impression Date: January 22, 2022 Initial ECG Impression Time: 14:44 Initial ECG Rate: 90 Initial ECG Rhythm: A Fib/Flutter Initial ECG Intervals: Normal Initial ECG Impression: Normal, Nonspecific Changes Comment Atrial fibrillation with right bundle branch block but no clinically relevant ST elevation or depression. Diagnostic Imaging Diagonstic Imaging: Xray Plain Films/CT/US/NM/MRI: chest Comments [facility] [place], [place] NAME: ANABEL DE LA CRUZ MED REC#: [id number] PT STATUS: REG ER : 1930 PHYSICIAN: ESTELA DIAZ MD ADMIT DATE: 01/22/22/ER Draft Date of Exam:01/22/22 CHEST 1 VIEW, AP/PA ONLY HISTORY: Syncope. COMPARISON: 11/09/2021. TECHNIQUE: Frontal view of the chest. FINDINGS: Lung volumes are normal. No consolidation is seen. There is mild cardiomegaly which appears stable. There is no pleural effusion or pneumothorax. There is aortic atherosclerosis. There are calcified lymph nodes in the sindhu, bilaterally. IMPRESSION: Mild cardiomegaly. Dictated on workstation # [id number] Dict: 01/22/22 1547 Trans: 01/22/22 1551 [facility] [id number] Interpreted by: ESTHELA GOTTI MD Electronically signed by: Reviewed: Reviewed by Me Departure Communication (Admissions) Time/Spoke to Admitting Phy: 16:50 Discussed the case with Dr. ARREAGA who agrees to observe the patient with consultation to cardiology. Time/Spoke to Consulting Phy: 16:45 Discussed the case with Dr. Morelos and he agrees to observe the patient on aspirin and Lovenox. Impression Primary Impression: Syncope Qualified Codes: R55 - Syncope and collapse Additional Impressions: Elevated troponin I level Orthostatic hypotension Disposition: ADMITTED INPATIENT Condition: Stable Admissions Decision to Admit Reason: Admit from ER (General) Decision to Admit/Date: January 22, 2022 Time/Decision to Admit Time: 16:54 Departure-Patient Inst. Referrals: STEFANO ARREAGA DO (PCP/Family) Primary Care Physician ESTELA DIAZ January 22, 2022 14:58
[2022-01-22 14:59] LABS: BASOPHILS # (AUTO) 0.1 10^3/uL (0.0-0.1); BASOPHILS % (AUTO) 1 % (0-10); EOSINOPHILS # (AUTO) 0.2 10^3/uL (0.0-0.3); EOSINOPHILS % (AUTO) 2 % (0-10); HEMATOCRIT 38 % (40-54); HEMOGLOBIN 12.5 g/dL (13.3-17.7); LYMPHOCYTES # (AUTO) 1.1 10^3/uL (1.0-4.0); LYMPHOCYTES % (AUTO) 11 % (12-44); MEAN CORPUSCULAR HEMOGLOBIN 29 pg (25-34); MEAN CORPUSCULAR HGB CONC 33 g/dL (32-36); MEAN CORPUSCULAR VOLUME 89 fL (80-99); MEAN PLATELET VOLUME 8.7 fL (9.0-12.2); MONOCYTES # (AUTO) 0.5 10^3/uL (0.0-1.0); MONOCYTES % (AUTO) 5 % (0-12); NEUTROPHILS # (AUTO) 8.2 10^3/uL (1.8-7.8); NEUTROPHILS % (AUTO) 81 % (42-75); PLATELET COUNT 257 10^3/uL (130-400)
[2022-01-22 15:08] LABS: ALBUMIN 3.5 GM/DL (3.2-4.5); POTASSIUM 3.2 MMOL/L (3.6-5.0)
[2022-01-22 15:09] LABS: CALCIUM 9.1 MG/DL (8.5-10.1)
[2022-01-22 15:10] LABS: TOTAL PROTEIN 6.9 GM/DL (6.4-8.2)
[2022-01-22 15:12] LABS: BILIRUBIN,TOTAL 0.4 MG/DL (0.1-1.0)
[2022-01-22 15:14] LABS: CREATININE SERUM 0.79 MG/DL (0.60-1.30)
[2022-01-22 15:18] VITALS: BP_SYST 127; BP_SYST 133; BP_SYST 97; BP_DIAS 54; BP_DIAS 65; BP_DIAS 96
[2022-01-22] MEDS ORDERED: NS IV 500 ML 500 ML IV ONE (15:45)
--- NOTE | 2022-01-22 15:52 | Diagnostic Imaging Report ---
HISTORY: Syncope. COMPARISON: 11/09/2021. TECHNIQUE: Frontal view of the chest. FINDINGS: Lung volumes are normal. No consolidation is seen. There is mild cardiomegaly which appears stable. There is no pleural effusion or pneumothorax. There is aortic atherosclerosis. There are calcified lymph nodes in the sindhu, bilaterally. IMPRESSION: Mild cardiomegaly. Dictated by: Dictated on workstation # [id number]
[2022-01-22 17:01] LABS: BILIRUBIN,URINE NEGATIVE (NEGATIVE); CLARITY,URINE CLOUDY; COLOR,URINE YELLOW; GLUCOSE, URINE (UA) NEGATIVE (NEGATIVE); KETONES,URINE TRACE (NEGATIVE); LEUKOCYTE ESTERASE ,URINE 2+ (NEGATIVE); NITRITE,URINE POSITIVE (NEGATIVE); PH,URINE 5.5 (5-9); PROTEIN,URINE 2+ (NEGATIVE)
[2022-01-22 17:04] LABS: BACTERIA,URINE LARGE /HPF; WBC,URINE >100 /HPF
[2022-01-22] MEDS ORDERED: ENOXAPARIN 80 MG/0.8 ML (LOVENOX) SYR SC ONE (17:15)
[2022-01-22] MEDS ORDERED: ASPIRIN 81 MG CHEW (CHILDREN'S ASA) PO ONE (17:15)
[2022-01-22] MEDS ORDERED: cefTRIAXone 1 GM PRE-MIX 50 ML IV SCH (19:30)
[2022-01-22 20:00] VITALS: BP 125/61
[2022-01-22] MEDS ORDERED: ACETAMINOPHEN 325 MG TABLET PO PRN (20:45)
[2022-01-22] MEDS ORDERED: ONDANSETRON 4 MG/2 ML (SDV) Z0FRAN IV PRN (20:45)
[2022-01-22] MEDS: 1/2 NS W/KCL 20 MEQ/L 1,000 ML IV SCH (21:21)
[2022-01-22 21:30] VITALS: BP 181/113
[2022-01-22 21:45] VITALS: BP 167/94
[2022-01-22 22:00] VITALS: BP 153/110
[2022-01-22 23:00] VITALS: BP 130/70
[2022-01-23] VITALS: BP 131/86
[2022-01-23 01:00] VITALS: BP 147/89
[2022-01-23 02:00] VITALS: BP 131/73
[2022-01-23 03:58] VITALS: BP 148/82
[2022-01-23 05:00] LABS: BASOPHILS # (AUTO) 0.1 10^3/uL (0.0-0.1); BASOPHILS % (AUTO) 1 % (0-10); EOSINOPHILS # (AUTO) 0.1 10^3/uL (0.0-0.3); EOSINOPHILS % (AUTO) 1 % (0-10); HEMATOCRIT 35 % (40-54); HEMOGLOBIN 11.7 g/dL (13.3-17.7); LYMPHOCYTES # (AUTO) 1.4 10^3/uL (1.0-4.0); LYMPHOCYTES % (AUTO) 19 % (12-44); MEAN CORPUSCULAR HEMOGLOBIN 29 pg (25-34); MEAN CORPUSCULAR HGB CONC 33 g/dL (32-36); MEAN CORPUSCULAR VOLUME 88 fL (80-99); MEAN PLATELET VOLUME 8.6 fL (9.0-12.2); MONOCYTES # (AUTO) 0.5 10^3/uL (0.0-1.0); MONOCYTES % (AUTO) 7 % (0-12); NEUTROPHILS # (AUTO) 5.2 10^3/uL (1.8-7.8); NEUTROPHILS % (AUTO) 72 % (42-75); PLATELET COUNT 237 10^3/uL (130-400); WHITE BLOOD COUNT 7.2 10^3/uL (4.3-11.0)
[2022-01-23] MEDS ORDERED: ENOXAPARIN 80 MG/0.8 ML (LOVENOX) SYR SC SCH (05:00)
[2022-01-23 05:18] LABS: POTASSIUM 3.9 MMOL/L (3.6-5.0)
[2022-01-23 05:19] LABS: CALCIUM 8.7 MG/DL (8.5-10.1)
[2022-01-23 05:23] LABS: CREATININE SERUM 0.72 MG/DL (0.60-1.30)
--- NOTE | 2022-01-23 07:48 | Diagnostic Imaging Report ---
EXAMINATION: Chest 1 view HISTORY: Syncope COMPARISON: 01/22/2022 FINDINGS: Heart is mildly enlarged. No pleural effusion or pneumothorax. There is mild bibasilar atelectasis. IMPRESSION: 1. Mild bibasilar atelectasis. Dictated by: Dictated on workstation # [id number]
[2022-01-23 08:00] VITALS: BP 149/75
[2022-01-23] MEDS ORDERED: ASPIRIN E.C. 81 MG (ECOTRIN) TAB PO SCH (09:00)
[2022-01-23] MEDS ORDERED: CEFD300C3 PO (09:20)
[2022-01-23] MEDS ORDERED: MTP25TSR PO (09:20)
[2022-01-23] MEDS ORDERED: FOSI40TA65 PO (09:20)
[2022-01-23] MEDS ORDERED: FURO40TA4 PO (09:20)
--- NOTE | 2022-01-23 09:32 | Short Stay Summary ---
History of Present Illness History of Present Illness Reason for visit/HPI This is an 89 year old male with a history of atrial fibrillation, CAD and hypertension who had a syncopal episode while ambulating to the bathroom. His was by his side and lowered him to the ground with no injury. He was brought to the emergency room where his troponin-I was found to be elevated so he was given aspirin as well as lovenox and admitted to cardiology for observation. He denied chest pain. He has dyspnea on exertion but this has been a longstanding complaint. He was also found to have a UTI. Date of Admission January 22, 2022 at 17:00 Date of Discharge January Time Seen by Provider: 09:27 Attending Physician Stefano Nieves DO Admitting Physician Admitting Physician: Stefano Nieves DO Attending Physician: Stefano Nieves DO Consult Allergies and Home Medications Allergies Coded Allergies: No Known Drug Allergies (Unverified , 10/23/18) Patient Home Medication List Home Medication List Reviewed: Yes Amlodipine Besylate (Amlodipine Besylate) 10 Mg Tablet, 10 MG PO DAILY, (Reported) Entered as Reported by: MARIA EUGENIA PINEDA on 10/23/18 1314 Amoxicillin/Potassium Clav (Augmentin 500-125 Tablet) 1 Each Tablet, 1 EACH PO BID Prescribed by: CALIXTO GUNTER on 11/10/21 1501 Apixaban (Eliquis) 5 Mg Tablet, 5 MG PO BID, (Reported) Entered as Reported by: MARIA EUGENIA PINEDA on 10/23/18 1314 Bicalutamide (Bicalutamide) 50 Mg Tablet, 50 MG PO DAILY, (Reported) Entered as Reported by: MARIA EUGENIA PNIEDA on 10/23/18 1314 Calcium Carbonate/Vitamin D3 (Calcium 600 + Vit D 200 Tablet) 1 Each Tablet, 1 TAB PO DAILY, (Reported) Entered as Reported by: MARIA EUGENIA PINEDA on 10/23/18 1458 Cefdinir (Cefdinir) 300 Mg Capsule, 300 MG PO BID Prescribed by: STEFANO NIEVES on 01/23/22 09 Fosinopril Sodium (Fosinopril Sodium) 40 Mg Tablet, 40 MG PO DAILY Prescribed by: STEFANO NIEVES on 01/23/22 09 Furosemide (Furosemide) 40 Mg Tablet, 40 MG PO Q48H Prescribed by: STEFANO NIEVES on 01/23/22 0920 Gluc HCl/Csa/Osmin Hy/Hyalur AC (Glucosamine Chondroitin Cap) 1 Each Capsule, 1 CAP PO DAILY, (Reported) Entered as Reported by: MARIA EUGENIA PINEDA on 10/23/18 131 Hydrochlorothiazide (Hydrochlorothiazide) 25 Mg Tablet, 25 MG PO Q48H, (Reported) Entered as Reported by: MARIA EUGENIA PINEDA on 10/23/18 145 Hyoscyamine Sulfate (Levsin-Sl) 0.125 Mg Tab.subl, 1-2 TAB SL Q4H PRN for SPASMS Prescribed by: KY NAVARRO on 11/25/21 191 Levofloxacin (Levofloxacin) 500 Mg Tablet, 500 MG PO DAILY Prescribed by: CALIXTO GUNTER on 11/14/21 1418 Metoprolol Succinate (Metoprolol Succinate) 25 Mg Tab.er.24h, 25 MG PO DAILY Prescribed by: STEFANO NIEVES on 01/23/22 09 Multivitamin (Multivitamins) 1 Each Tablet, 1 TAB PO DAILY, (Reported) Entered as Reported by: MARIA EUGENIA PINEDA on 10/23/18 131 Omeprazole (Omeprazole) 20 Mg Capsule.dr, 40 MG PO DAILY, (Reported) Entered as Reported by: MARIA EUGENIA PINEDA on 10/23/18 131 Pantoprazole Sodium (Protonix) 40 Mg Granpkt.dr, 40 MG PO DAILY Prescribed by: CALIXTO GUNTER on 11/09/21 125 Potassium Gluconate (Potassium) 99 Mg Tablet, 99 MG PO DAILY, (Reported) Entered as Reported by: MARIA EUGENIA PINEDA on 10/23/18 145 Prednisolone Acetate/Pf (Prednisolone Acet 1% Eye Drop) 5 Ml Drops.susp, 1 DROP OU BID, (Reported) Entered as Reported by: MARIA EUGENIA PINEDA on 10/23/18 131 Simvastatin (Simvastatin) 80 Mg Tablet, 40 MG PO HS, (Reported) Entered as Reported by: MARIA EUGENIA PINEDA on 10/23/18 131 Sucralfate (Carafate) 1 Gm Tablet, 1 GM PO QID Prescribed by: CALIXTO GUNTER on 11/09/21 1252 Trospium Chloride (Trospium Chloride) 20 Mg Tablet, 20 MG PO HS, (Reported) Entered as Reported by: MARIA EUGENIA PINEDA on 10/23/18 0404 Past Bujtuqy-Rynomp-Xtcaxn Hx Patient Social History Marrital Status: Employed/Student: retired Alcohol Beverage of Choice: Whiskey 2nd Hand Smoke Exposure: No Recent Hopitalizations: No Have you traveled recently?: No Alcohol Use?: No Pt feels they are or have been: No Immunizations Up To Date Tetanus Booster (TDap): Unknown Date of Pneumonia Vaccine: Jun 21, 2018 Date of Influenza Vaccine: Jun 21, 2018 Seasonal Allergies Seasonal Allergies: No Surgeries Yes (dental surgery, kidney stones) Bladder Surgery, Eye Surgery, Gallbladder, Prostatectomy Respiratory No Currently Using CPAP: No Currently Using BIPAP: No Cardiovascular Yes (disputed irregular heart beat) Atrial Fibrillation, High Cholesterol, Hypertension Neurological No Reproductive System Hx Reproductive Disorders: No Sexually Transmitted Disease: No HIV/AIDS: No Genitourinary Yes Benign Prostatic Hyperpl, Prostate Problems, Kidney Stones Gastrointestinal No Gastroesophageal Reflux, Chronic Diarrhea, Irritable Bowel Musculoskeletal Yes Arthritis Endocrine History of Endocrine Disorders: No HEENT History of HEENT Disorders: Yes (Cornia transplant bilaterally) HEENT Disorders: Cataract Loss of Vision: Bilateral Hearing 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 Did You Recieve Any Treatments: Yes Type of Treatment: Chemotherapy, Radiation, Surgical Intervention Psychosocial History of Psychiatric Problem: No Integumentary History of Skin or Integumenta: No Blood Transfusions Adverse Reaction to a Blood Tr: No Family Medical History Family Hx: FHx: heart disease Heart G8 BROTHER G8 SISTER Myocardial infarction 19 FATHER 19 MOTHER G8 BROTHER G8 SISTER Review of Systems Constitutional: weakness EENTM: No see HPI, No no symptoms reported, No ear discharge, No hearing loss, No ear pain, No blurred vision, No double vision, No eye pain, No tearing, No vision loss, No dental problems, No hoarseness, No mouth pain, No mouth swelling, No epistaxis, No nose congestion, No nose pain, No throat pain, No throat swelling, No other Respiratory: dyspnea on exertion (ongoing for months) Cardiovascular: No no symptoms reported, No see HPI, No chest pain, No edema, No Hx of Intervention, No palpitations, No syncope, No vascular heart diseas, No other Gastrointestinal: No RUQ, No LUQ, No RLQ, No LLQ, No no symptoms reported, No see HPI, No abdominal pain, No constipation, No diarrhea, No dysphagia, No hematemesis, No heartburn, No jaundice, No loss of appetite, No melena, No nausea, No vomiting, No other Genitourinary: other (chronic indwelling cui catheter) Musculoskeletal: muscle weakness Psychiatric/Neurological: Weakness Physical Exam Vital Signs Vital Signs - First Documented 01/22/22 01/22/22 14:40 17:50 Temp 36.3 Pulse 85 Resp 20 B/P (MAP) 138/75 (96) Pulse Ox 95 O2 Delivery Room Air Capillary Refill : Height, Weight, BMI Height: 5'10.00" Weight: 177lbs. 8.0oz. 80.027777yl; 24.05 BMI Method:Stated General Appearance: No Apparent Distress Neck: Supple Respiratory: Lungs Clear Cardiovascular: Systolic Murmur, Irregularly Irregular Gastrointestinal: Normal Bowel Sounds, Non Tender, Soft, Other (cui catheter in place with dark red/tea colored urine) Rectal: Deferred Back: Normal Inspection Extremity: Non Tender, No Calf Tenderness, No Pedal Edema Neurologic/Psychiatric: Alert, Oriented x3 Skin: Warm/Dry Comments Laboratory Tests 01/22/22 14:45: White Blood Count 10.0, Red Blood Count 4.26L, Hemoglobin 12.5L, Hematocrit 38L, Mean Corpuscular Volume 89, Mean Corpuscular Hemoglobin 29, Mean Corpuscular Hemoglobin Concent 33, Red Cell Distribution Width 14.2, Platelet Count 257, Mean Platelet Volume 8.7L, Immature Granulocyte % (Auto) 1, Neutrophils (%) (Auto) 81H, Lymphocytes (%) (Auto) 11L, Monocytes (%) (Auto) 5, Eosinophils (%) (Auto) 2, Basophils (%) (Auto) 1, Neutrophils # (Auto) 8.2H, Lymphocytes # (Auto) 1.1, Monocytes # (Auto) 0.5, Eosinophils # (Auto) 0.2, Basophils # (Auto) 0.1, Immature Granulocyte # (Auto) 0.1, Prothrombin Time 14.0, INR Comment 1.0, Sodium Level 140, Potassium Level 3.2L, Chloride Level 105, Carbon Dioxide Level 20L, Anion Gap 15H, Blood Urea Nitrogen 16, Creatinine 0.79, Estimat Glomerular Filtration Rate 85, BUN/Creatinine Ratio 20, Glucose Level 156H, Calcium Level 9.1, Corrected Calcium 9.5, Total Bilirubin 0.4, Aspartate Amino Transf (AST/SGOT) 19, Alanine Aminotransferase (ALT/SGPT) 8, Alkaline Phosphatase 65, Troponin I 0.733*H, C-Reactive Protein High Sensitivity 1.19H, B-Type Natriuretic Peptide 345.0H, Total Protein 6.9, Albumin 3.5 01/22/22 15:20: Urine Color YELLOW, Urine Clarity CLOUDY, Urine pH 5.5, Urine Specific [place] >=1.030, Urine Protein 2+H, Urine Glucose (UA) NEGATIVE, Urine Ketones TRACEH, Urine Nitrite POSITIVEH, Urine Bilirubin NEGATIVE, Urine Urobilinogen 0.2, Urine Leukocyte Esterase 2+H, Urine RBC (Auto) 2+H, Urine RBC 10-25H, Urine WBC >100H, Urine Crystals NONE, Urine Bacteria LARGEH, Urine Casts NONE, Urine Mucus NEGATIVE, Urine Culture Indicated YES 01/22/22 18:28: Troponin I 0.788*H 01/23/22 04:50: White Blood Count 7.2, Red Blood Count 3.98L, Hemoglobin 11.7L, Hematocrit 35L, Mean Corpuscular Volume 88, Mean Corpuscular Hemoglobin 29, Mean Corpuscular Hemoglobin Concent 33, Red Cell Distribution Width 14.0, Platelet Count 237, Mean Platelet Volume 8.6L, Immature Granulocyte % (Auto) 1, Neutrophils (%) (Auto) 72, Lymphocytes (%) (Auto) 19, Monocytes (%) (Auto) 7, Eosinophils (%) (Auto) 1, Basophils (%) (Auto) 1, Neutrophils # (Auto) 5.2, Lymphocytes # (Auto) 1.4, Monocytes # (Auto) 0.5, Eosinophils # (Auto) 0.1, Basophils # (Auto) 0.1, Immature Granulocyte # (Auto) 0.0, Sodium Level 138, Potassium Level 3.9, Chloride Level 108H, Carbon Dioxide Level 17L, Anion Gap 13, Blood Urea Nitrogen 16, Creatinine 0.72, Estimat Glomerular Filtration Rate 87, BUN/Creatinine Ratio 22, Glucose Level 124H, Calcium Level 8.7, Troponin I 0.379*H Microbiology 01/22/22 Urine Culture - Preliminary, Resulted Gram Negative Gray Short Stay Diagnosis Discharge Diagnosis-Short Stay Final Discharge Diagnosis: 1. Syncopal Episode--likely vasovagal--will stop amlodopine and start metoprolol and decrease lasix to every other day 2. Orthostatic Hypotension--med changes as above 3. Elevated Troponin-I--likely Type II NH from vasovagal episode--patient refused cardiac cath 4. Chronic Atrial Fibrillation--rate controlled, unable to tolerate any blood thinners due to hematuria 5. History of CAD--as above, medical management 6. UTI--given rocephin, will DC home on cefdinir 7. Chronic Indwelling cui catheter with gross hematuria--was given aspirin and lovenox so will treat UTI and hydrate and monitor and stop all blood thinners 8. Hypertension--home on fosinopril and metoprolol 9. Hypokalemia--resolved 10. Prostate Cancer--follows with urology in [place] Conclusion Labs Laboratory Tests 01/22/22 14:45: White Blood Count 10.0, Red Blood Count 4.26L, Hemoglobin 12.5L, Hematocrit 38L, Mean Corpuscular Volume 89, Mean Corpuscular Hemoglobin 29, Mean Corpuscular Hemoglobin Concent 33, Red Cell Distribution Width 14.2, Platelet Count 257, Mean Platelet Volume 8.7L, Immature Granulocyte % (Auto) 1, Neutrophils (%) (Auto) 81H, Lymphocytes (%) (Auto) 11L, Monocytes (%) (Auto) 5, Eosinophils (%) (Auto) 2, Basophils (%) (Auto) 1, Neutrophils # (Auto) 8.2H, Lymphocytes # (Auto) 1.1, Monocytes # (Auto) 0.5, Eosinophils # (Auto) 0.2, Basophils # (Auto) 0.1, Immature Granulocyte # (Auto) 0.1, Prothrombin Time 14.0, INR Comment 1.0, Sodium Level 140, Potassium Level 3.2L, Chloride Level 105, Carbon Dioxide Level 20L, Anion Gap 15H, Blood Urea Nitrogen 16, Creatinine 0.79, Estimat Glomerular Filtration Rate 85, BUN/Creatinine Ratio 20, Glucose Level 156H, Calcium Level 9.1, Corrected Calcium 9.5, Total Bilirubin 0.4, Aspartate Amino Transf (AST/SGOT) 19, Alanine Aminotransferase (ALT/SGPT) 8, Alkaline Phosphatase 65, Troponin I 0.733*H, C-Reactive Protein High Sensitivity 1.19H, B-Type Natriuretic Peptide 345.0H, Total Protein 6.9, Albumin 3.5 01/22/22 15:20: Urine Color YELLOW, Urine Clarity CLOUDY, Urine pH 5.5, Urine Specific [place] >=1.030, Urine Protein 2+H, Urine Glucose (UA) NEGATIVE, Urine Ketones TRACEH, Urine Nitrite POSITIVEH, Urine Bilirubin NEGATIVE, Urine Urobilinogen 0.2, Urine Leukocyte Esterase 2+H, Urine RBC (Auto) 2+H, Urine RBC 10-25H, Urine WBC >100H, Urine Crystals NONE, Urine Bacteria LARGEH, Urine Casts NONE, Urine Mucus NEGATIVE, Urine Culture Indicated YES 01/22/22 18:28: Troponin I 0.788*H 01/23/22 04:50: White Blood Count 7.2, Red Blood Count 3.98L, Hemoglobin 11.7L, Hematocrit 35L, Mean Corpuscular Volume 88, Mean Corpuscular Hemoglobin 29, Mean Corpuscular Hemoglobin Concent 33, Red Cell Distribution Width 14.0, Platelet Count 237, Mean Platelet Volume 8.6L, Immature Granulocyte % (Auto) 1, Neutrophils (%) (Auto) 72, Lymphocytes (%) (Auto) 19, Monocytes (%) (Auto) 7, Eosinophils (%) (Auto) 1, Basophils (%) (Auto) 1, Neutrophils # (Auto) 5.2, Lymphocytes # (Auto) 1.4, Monocytes # (Auto) 0.5, Eosinophils # (Auto) 0.1, Basophils # (Auto) 0.1, Immature Granulocyte # (Auto) 0.0, Sodium Level 138, Potassium Level 3.9, Chloride Level 108H, Carbon Dioxide Level 17L, Anion Gap 13, Blood Urea Nitrogen 16, Creatinine 0.72, Estimat Glomerular Filtration Rate 87, BUN/Creatinine Ratio 22, Glucose Level 124H, Calcium Level 8.7, Troponin I 0.379*H Microbiology 01/22/22 Urine Culture - Preliminary, Resulted Gram Negative Gray Conclusion/Plan This is an 89 year old male with a history of atrial fibrillation, CAD and hypertension who had a syncopal episode while ambulating to the bathroom. His was by his side and lowered him to the ground with no injury. He was brought to the emergency room where his troponin-I was found to be elevated so he was given aspirin as well as lovenox and admitted to cardiology for observation. He denied chest pain. He has dyspnea on exertion but this has been a longstanding complaint. He was also found to have a UTI. He was admitted to the cardiac floor on observation. His initial troponin-I was 0.733 and his second jumped to 0.788 but his 3rd was down to 0.379. He had no chest discomfort. A cardiac catheterization was discussed but the patient refused. It was felt that he likely had a vasovagal episode causing his elevated troponin-I. He was given IV rocephin and will be discharged home on cefdinir. He did have dark bloody/tea colored urine after receiving the aspirin and lovenox. He has a history of gross hematuria with any blood thinners including aspirin so he has opted to not take blood thinners even with his increased risk of stroke due to his atrial fibrillation. On the morning of discharge he is feeling well with no complaints and wants to eat and go home. Cardiology has seen him and is checking an ECHO then he will be discharged home with a change of stopping the amlodopine and starting metoprolol in it's place. He will resume home health on discharge. He understands that the hematuria will resolve over the next few days with holding of blood thinners. I will follow up with him in my office in 1 week and he will follow up with cardiology in 2 weeks. STEFANO NIEVES DO January 23, 2022 09:32
--- NOTE | 2022-01-23 09:35 | Consultation-Cardiology ---
HPI-Cardiology Cardiology Consultation Date of Consultation 01/23/22 Date of Admission Time Seen by Provider: 09:29 Indication: Syncope HPI 89 years old gentleman with history of atrial fibrillation, hypertension and hyperlipidemia in addition to recurrent hematuria, permanent suprapubic catheter. He was walking to the bathroom where patient had a syncopal episode, his helped him down to the floor, did not hit his head. Regained consciousness fairly quickly. He came into the emergency room for evaluation noted to have elevation in troponin. He denied any chest pain, no shortness of breath. No palpitation. Feeling well. Troponin level has came down since admission Home Medications & Allergies Allergies: Coded Allergies: No Known Drug Allergies (Unverified , 10/23/18) Home Medication List Reviewed: Yes LHS-Gsujar-Ayxuhl Hx Patient Social History Marital Status: Employed/Student: retired 2nd Hand Smoke Exposure: No Recent Hopitalizations: No Have you traveled recently?: No Alcohol Use?: No Immunizations Up To Date Tetanus Booster (TDap): Unknown Date of Pneumonia Vaccine: Jun 21, 2018 Date of Influenza Vaccine: Jun 21, 2018 Past Medical History Discussed below Family Medical History Family History: FHx: heart disease Heart G8 BROTHER G8 SISTER Myocardial infarction 19 FATHER 19 MOTHER G8 BROTHER G8 SISTER Review of Systems-General Review of Systems Constitutional: No chills, No diaphoresis, No fever; malaise; No weakness EENTM: No ear discharge, No ear pain Respiratory: see HPI; No cough, No dyspnea on exertion, No hemoptysis, No orthopnea, No phlegm, No short of breath, No stridor, No wheezing, No other Cardiovascular: see HPI; No chest pain, No edema, No Hx of Intervention, No palpitations; syncope; No vascular heart diseas, No other Gastrointestinal: see HPI; No abdominal pain, No constipation, No diarrhea, No nausea Genitourinary: see HPI; No discharge, No dysuria; hematuria, other (Suprapubic catheter with hematuria) Musculoskeletal: no symptoms reported, see HPI, back pain, joint pain Skin: no symptoms reported, see HPI Psychiatric/Neurological: No Symptoms Reported, See HPI All Other Systems Reviewed Negative Unless Noted: Yes Reviewed Test Results Reviewed Test Results Lab Laboratory Tests Test 01/22/22 14:45 01/22/22 15:20 01/22/22 18:28 01/23/22 04:50 Range/Units White Blood Count 10.0 7.2 4.3-11.0 10^3/uL Red Blood Count 4.26 L 3.98 L 4.30-5.52 10^6/uL Hemoglobin 12.5 L 11.7 L 13.3-17.7 g/dL Hematocrit 38 L 35 L 40-54 % Mean Corpuscular Volume 89 88 80-99 fL Mean Corpuscular Hemoglobin 29 29 25-34 pg Mean Corpuscular Hemoglobin Concent 33 33 32-36 g/dL Red Cell Distribution Width 14.2 14.0 10.0-14.5 % Platelet Count 257 237 130-400 10^3/uL Mean Platelet Volume 8.7 L 8.6 L 9.0-12.2 fL Immature Granulocyte % (Auto) 1 1 % Neutrophils (%) (Auto) 81 H 72 42-75 % Lymphocytes (%) (Auto) 11 L 19 12-44 % Monocytes (%) (Auto) 5 7 0-12 % Eosinophils (%) (Auto) 2 1 0-10 % Basophils (%) (Auto) 1 1 0-10 % Neutrophils # (Auto) 8.2 H 5.2 1.8-7.8 10^3/uL Lymphocytes # (Auto) 1.1 1.4 1.0-4.0 10^3/uL Monocytes # (Auto) 0.5 0.5 0.0-1.0 10^3/uL Eosinophils # (Auto) 0.2 0.1 0.0-0.3 10^3/uL Basophils # (Auto) 0.1 0.1 0.0-0.1 10^3/uL Immature Granulocyte # (Auto) 0.1 0.0 0.0-0.1 10^3/uL Prothrombin Time 14.0 12.2-14.7 SEC INR Comment 1.0 0.8-1.4 Sodium Level 140 138 135-145 MMOL/L Potassium Level 3.2 L 3.9 3.6-5.0 MMOL/L Chloride Level 105 108 H 98-107 MMOL/L Carbon Dioxide Level 20 L 17 L 21-32 MMOL/L Anion Gap 15 H 13 5-14 MMOL/L Blood Urea Nitrogen 16 16 7-18 MG/DL Creatinine 0.79 0.72 0.60-1.30 MG/DL Estimat Glomerular Filtration Rate 85 87 BUN/Creatinine Ratio 20 22 Glucose Level 156 H 124 H 70-105 MG/DL Calcium Level 9.1 8.7 8.5-10.1 MG/DL Corrected Calcium 9.5 8.5-10.1 MG/DL Total Bilirubin 0.4 0.1-1.0 MG/DL Aspartate Amino Transf (AST/SGOT) 19 5-34 U/L Alanine Aminotransferase (ALT/SGPT) 8 0-55 U/L Alkaline Phosphatase 65 40-136 U/L Troponin I 0.733 *H 0.788 *H 0.379 *H <0.028 NG/ML C-Reactive Protein High Sensitivity 1.19 H 0.00-0.50 MG/DL B-Type Natriuretic Peptide 345.0 H <100.0 PG/ML Total Protein 6.9 6.4-8.2 GM/DL Albumin 3.5 3.2-4.5 GM/DL Urine Color YELLOW Urine Clarity CLOUDY Urine pH 5.5 5-9 Urine Specific [place] >=1.030 1.016-1.022 Urine Protein 2+ H NEGATIVE Urine Glucose (UA) NEGATIVE NEGATIVE Urine Ketones TRACE H NEGATIVE Urine Nitrite POSITIVE H NEGATIVE Urine Bilirubin NEGATIVE NEGATIVE Urine Urobilinogen 0.2 < = 1.0 MG/DL Urine Leukocyte Esterase 2+ H NEGATIVE Urine RBC (Auto) 2+ H NEGATIVE Urine RBC 10-25 H /HPF Urine WBC >100 H /HPF Urine Crystals NONE /LPF Urine Bacteria LARGE H /HPF Urine Casts NONE /LPF Urine Mucus NEGATIVE /LPF Urine Culture Indicated YES Physical Exam Physical Exam Vital Signs Vital Signs - First Documented 01/22/22 01/22/22 14:40 17:50 Temp 36.3 Pulse 85 Resp 20 B/P (MAP) 138/75 (96) Pulse Ox 95 O2 Delivery Room Air Capillary Refill : Height, Weight, BMI Height: 5'10.00" Weight: 177lbs. 8.0oz. 80.813678af; 24.05 BMI Method:Stated General Appearance: No Apparent Distress, WD/WN HEENT: PERRL/EOMI, TMs Normal (Negative for hemotympanum or mayo sign), Normal ENT Inspection, Pharynx Normal, Moist Mucous Membranes Neck: Full Range of Motion, Normal Inspection, Non Tender Respiratory: Lungs Clear, Normal Breath Sounds, No Accessory Muscle Use, No Respiratory Distress Cardiovascular: No Edema, Normal Peripheral Pulses, Systolic Murmur, Irregularly Irregular Gastrointestinal: Normal Bowel Sounds, Non Tender, Soft Extremity: Normal Capillary Refill, Normal Inspection, Pedal Edema (1+ bipedal edema) Neurologic/Psychiatric: Alert, Oriented x3 Skin: Normal Color, Warm/Dry A/P-Cardiology Admission Diagnosis Syncope Non-ST elevation myocardial infarction Chronic persistent atrial fibrillation Hypertension Coronary artery disease Assessment/Plan Syncope, most probably vasovagal episode. Patient's blood pressure has been stable during the hospital stay. I recommend evaluating 2D echo, stopping amlodipine and starting low-dose beta- blockers with Toprol-XL 25 mg daily. Mild elevation in troponin level. Has been stable and trending down. Nonspecific EKG finding. Non-ST elevation myocardial infarction Most probably underlying coronary artery disease, I had a long discussion with the patient and his , we discussed the possibility of cardiac catheterization. Patient has significant hematuria and he is intolerant to any type of anticoagulation. Would not be able to tolerate a stent with dual antiplatelet therapy for 6 months. Patient reported that he is 89 years old and prefer conservative management. Chronic atrial fibrillation, intolerant to oral anticoagulation. Rate is controlled. Frequent PVCs, ventricular bigeminy noted on telemetry. I am starting low-dose beta-blockers with Toprol-XL 25 mg daily and monitor tolerance and response Hypertension, maintained on amlodipine and fosinopril. Most probably had a hypotensive episode. I am stopping amlodipine and using Toprol. Evaluate 2D echo Last 2D echo was done in June 2021 showing ejection fraction 60 to 65%, biatrial enlargement, mild mitral regurgitation, aortic valve sclerosis. PA pressure 35 to [address] Hernández Hyperlipidemia, maintained on simvastatin. Monitor lipids Chronic pedal edema, has chronic venous insufficiency and has been on amlodipine. Mild to moderate bilateral carotid stenosis, last ultrasound was done in May 2021. Continue to monitor Persistent hematuria, history of suprapubic catheter, followed by urologist. JAZ SULLIVAN MD January 23, 2022 09:35
[2022-01-23 12:00] VITALS: BP 178/94
[2022-01-23] MEDS: 1/2 NS W/KCL 20 MEQ/L 1,000 ML IV SCH (12:23)
== END 2022-01-23 16:25 | disposition home or self-care (01) ==
LOC: EDUNIT# 14:35 → ER 14:36 → CSD 17:00
PROVIDERS: ADMIT Family Medicine; ATTEND Family Medicine
DX: I95.1 Orthostatic hypotension (principal); I21.4 Non-ST elevation (NSTEMI) myocardial infarction; I48.19 Other persistent atrial fibrillation; I10 Essential (primary) hypertension; I25.10 Atherosclerotic heart disease of native coronary artery without angina pectoris; I49.3 Ventricular premature depolarization; I65.23 Occlusion and stenosis of bilateral carotid arteries; I35.8 Other nonrheumatic aortic valve disorders; I34.0 Nonrheumatic mitral (valve) insufficiency; I87.2 Venous insufficiency (chronic) (peripheral); E78.5 Hyperlipidemia, unspecified; R77.8 Other specified abnormalities of plasma proteins; R31.9 Hematuria, unspecified; N39.0 Urinary tract infection, site not specified; E87.6 Hypokalemia; C61 Malignant neoplasm of prostate; T83.098A Other mechanical complication of other urinary catheter, initial encounter; Z79.899 Other long term (current) drug therapy
CPT/HCPCS: 36415; 71045; 80048; 80053; 81000; 83880; 84484; 85025; 85610; 86141; 87077; 87088; 87186; 93005; 93306; 96361; 96372; 96374; 96375

== ENCOUNTER 2022-01-27 16:50 | Observation (INO) | payer MEDICARE, OTHER ==
[~2022-01-27] VITALS: Ht 180.3 cm; Wt 86.9 kg
[~2022-01-27 16:50] MED LIST changes: +FURO40TA4 PO; +MTP25TSR PO
[2022-01-27] MEDS ORDERED: ONDANSETRON 4 MG/2 ML (SDV) Z0FRAN IV PRN (17:00)
[2022-01-27] MEDS ORDERED: PATIENT MAY USE OWN MEDS, ALL PO SCH (17:00)
[2022-01-27] MEDS ORDERED: ACETAMINOPHEN 325 MG TABLET PO PRN (17:15)
[2022-01-27] MEDS ORDERED: SCOPOLAMINE 1.5 MG (TRANSDERM-SCOP) PATCH TD ONE (17:45)
[2022-01-27 17:50] VITALS: BP 182/90
[2022-01-27] MEDS: NS W/KCL 20 MEQ/L 1,000 ML IV SCH (18:18)
[2022-01-27 18:20] LABS: BASOPHILS % (AUTO) 0 % (0-10); EOSINOPHILS % (AUTO) 0 % (0-10); HEMATOCRIT 35 % (40-54); HEMOGLOBIN 11.7 g/dL (13.3-17.7); LYMPHOCYTES # (AUTO) 0.7 10^3/uL (1.0-4.0); LYMPHOCYTES % (AUTO) 9 % (12-44); MEAN CORPUSCULAR HEMOGLOBIN 29 pg (25-34); MEAN CORPUSCULAR HGB CONC 33 g/dL (32-36); MEAN CORPUSCULAR VOLUME 88 fL (80-99); MEAN PLATELET VOLUME 8.5 fL (9.0-12.2); MONOCYTES # (AUTO) 0.4 10^3/uL (0.0-1.0); MONOCYTES % (AUTO) 5 % (0-12); NEUTROPHILS # (AUTO) 6.5 10^3/uL (1.8-7.8); NEUTROPHILS % (AUTO) 85 % (42-75); PLATELET COUNT 251 10^3/uL (130-400); WHITE BLOOD COUNT 7.6 10^3/uL (4.3-11.0)
--- NOTE | 2022-01-27 18:34 | History & Physical ---
History of Present Illness History of Present Illness Reason for visit/HPI This is an 89 year old male who was brought to my office by his and son for dizziness and weakness. He was just admitted for the same this past weekend. His troponin-I was elevated on that hospital stay but he refused cardiac cath and was discharged home after his troponin was trending down and he was having no symptoms. Apparently he had been doing well until today when he had another episode of dizziness and then weakness where he couldn't walk. His reports he has hardly ate or drank today either. He will be direct admitted for evaluation and treatment. Date of Admission January 27, 2022 at 17:16 Date Seen by a Provider: January 27, 2022 Time Seen by a Provider: 16:45 I consulted on this patient on 01/27/22 18:29 Attending Physician Stefano Nieves DO Admitting Physician Admitting Physician: Stefano Nieves DO Attending Physician: Stefano Nieves DO Consult Allergies and Home Medications Allergies Coded Allergies: No Known Drug Allergies (Unverified , 10/23/18) Patient Home Medication List Home Medication List Reviewed: Yes Calcium Carbonate/Vitamin D3 (Calcium 600 + Vit D 200 Tablet) 1 Each Tablet, 1 TAB PO DAILY, (Reported) Entered as Reported by: MARIA EUGENIA PINEDA on 10/23/18 1458 Cefdinir (Cefdinir) 300 Mg Capsule, 300 MG PO BID Prescribed by: STEFANO NIEVES on 01/23/22919 Fosinopril Sodium (Fosinopril Sodium) 40 Mg Tablet, 40 MG PO DAILY Prescribed by: STEFANO NIEVES on 01/23/22919 Furosemide (Furosemide) 40 Mg Tablet, 40 MG PO Q48H Prescribed by: STEFANO NIEVES on 01/23/22919 Hyoscyamine Sulfate (Levsin-Sl) 0.125 Mg Tab.subl, 1-2 TAB SL Q4H PRN for SPASMS Prescribed by: KY NAVARRO on 11/25/211917 Metoprolol Succinate (Metoprolol Succinate) 25 Mg Tab.er.24h, 25 MG PO DAILY Prescribed by: STEFANO NIEVES on 01/23/22919 Multivitamin (Multivitamins) 1 Each Tablet, 1 TAB PO DAILY, (Reported) Entered as Reported by: MARIA EUGENIA PINEDA on 10/23/18 131 Omeprazole (Omeprazole) 20 Mg Capsule.dr, 40 MG PO DAILY, (Reported) Entered as Reported by: MARIA EUGENIA PINEDA on 10/23/18 131 Prednisolone Acetate/Pf (Prednisolone Acet 1% Eye Drop) 5 Ml Drops.susp, 1 DROP OU BID, (Reported) Entered as Reported by: MARIA EUGENIA PINEDA on 10/23/18 131 Simvastatin (Simvastatin) 80 Mg Tablet, 40 MG PO HS, (Reported) Entered as Reported by: MARIA EUGENIA PINEDA on 10/23/18 131 Discontinued Medications Amlodipine Besylate (Amlodipine Besylate) 10 Mg Tablet, 10 MG PO DAILY, (Reported) Entered as Reported by: MARIA EUGENIA PINEDA on 10/23/18 131 Amoxicillin/Potassium Clav (Augmentin 500-125 Tablet) 1 Each Tablet, 1 EACH PO BID Discontinued Reason: Provider Ok'd Prescribed by: CALIXTO GUNTER on 11/10/21 1501 Apixaban (Eliquis) 5 Mg Tablet, 5 MG PO BID, (Reported) Entered as Reported by: MARIA EUGENIA PINEDA on 10/23/18 131 Bicalutamide (Bicalutamide) 50 Mg Tablet, 50 MG PO DAILY, (Reported) Discontinued Reason: Provider Ok'd Entered as Reported by: MARIA EUGENIA PINEDA on 10/23/18 1314 Gluc HCl/Csa/Osmin Hy/Hyalur AC (Glucosamine Chondroitin Cap) 1 Each Capsule, 1 CAP PO DAILY, (Reported) Discontinued Reason: Provider Ok'd Entered as Reported by: MARIA EUGENIA PINEDA on 10/23/18 1315 Hydrochlorothiazide (Hydrochlorothiazide) 25 Mg Tablet, 25 MG PO Q48H, (Reported) Discontinued Reason: Provider Ok'd Entered as Reported by: MARIA EUGENIA PINEDA on 10/23/18 1458 Levofloxacin (Levofloxacin) 500 Mg Tablet, 500 MG PO DAILY Discontinued Reason: Provider Ok'd Prescribed by: CALIXTO GUNTER on 11/14/21 1418 Pantoprazole Sodium (Protonix) 40 Mg Granpkt., 40 MG PO DAILY Discontinued Reason: Provider Change Prescribed by: CALIXTO GUNTER on 11/09/21 1252 Potassium Gluconate (Potassium) 99 Mg Tablet, 99 MG PO DAILY, (Reported) Discontinued Reason: Provider Ok'd Entered as Reported by: MARIA EUGENIA PINEDA on 10/23/18 1458 Sucralfate (Carafate) 1 Gm Tablet, 1 GM PO QID Discontinued Reason: Provider Ok'd Prescribed by: CALIXTO GUNTER on 11/09/21 1252 Trospium Chloride (Trospium Chloride) 20 Mg Tablet, 20 MG PO HS, (Reported) Discontinued Reason: Provider Ok'd Entered as Reported by: MARIA EUGENIA PINEDA on 10/23/18 1314 Past Bmyvmqf-Lqlarl-Bjtmer Hx Patient Social History Marrital Status: Employed/Student: retired Tobacco Use?: No Substance use?: No Alcohol Use?: No Immunizations Up To Date Date of Influenza Vaccine: Jun 21, 2018 First/Initial COVID19 Vaccinat: NOVEMBER 2020 Second COVID19 Vaccination Dylan: DECEMBER 2020 Tetanus Booster (TDap): Unknown Hepatitis A: Yes Hepatitis B: Yes Date of Pneumonia Vaccine: Jun 21, 2018 Seasonal Allergies Seasonal Allergies: No Current Status Communicates: Verbally Primary Language: Emirati Preferred Spoken Language: Emirati Past Medical History Surgeries: Bladder Surgery, Eye Surgery, Gallbladder, Prostatectomy Currently Using CPAP: No Currently Using BIPAP: No Atrial Fibrillation, High Cholesterol, Hypertension Sexually Transmitted Disease: No HIV/AIDS: No Benign Prostatic Hyperpl, Prostate Problems, Kidney Stones Gastroesophageal Reflux, Chronic Diarrhea, Irritable Bowel Arthritis Cataract Loss of Vision: Bilateral Hearing Impairment: Hard of Hearing Prostate Did You Recieve Any Treatments: Yes What Type of Treatment Did You: Chemotherapy, Radiation, Surgical Intervention Adverse Reaction/Blood Tranf: No Family Medical History FHx: heart disease Heart G8 BROTHER G8 SISTER Myocardial infarction 19 FATHER 19 MOTHER G8 BROTHER G8 SISTER Review of Systems Constitutional: weakness EENTM: vision loss Respiratory: short of breath Cardiovascular: edema Gastrointestinal: loss of appetite, nausea Genitourinary: other (chronic indwelling cui catheter) Musculoskeletal: muscle weakness Skin: No no symptoms reported, No see HPI, No change in color, No change in hair/nails, No dryness, No hx of skin cancer, No lesions, No lumps, No pruritus, No rash, No other Psychiatric/Neurological: Anxiety, Weakness Physical Exam Vital Signs Vital Signs - First Documented 01/27/22 17:50 Temp 36.8 Pulse 77 Resp 19 B/P (MAP) 182/90 (120) Pulse Ox 94 O2 Delivery Room Air Capillary Refill : Height, Weight, BMI Height: 5'10.00" Weight: 177lbs. 8.0oz. 80.056021eh; 26.76 BMI Method:Stated General Appearance: Moderate Distress (in wheelchair) HEENT: Other (MM dry) Respiratory: Lungs Clear Cardiovascular: Systolic Murmur, Gallop/S4, Irregularly Irregular Gastrointestinal: Normal Bowel Sounds, Non Tender, Soft Rectal: Deferred Genital/Rectal: Other (cui catheter in place) Back: No CVA Tenderness Extremity: Non Tender, No Calf Tenderness, Pedal Edema (ankles) Neurologic/Psychiatric: Alert, Motor Weakness Skin: Warm/Dry Comments Laboratory Tests 01/27/22 18:09: White Blood Count 7.6, Red Blood Count 4.00L, Hemoglobin 11.7L, Hematocrit 35L, Mean Corpuscular Volume 88, Mean Corpuscular Hemoglobin 29, Mean Corpuscular Hemoglobin Concent 33, Red Cell Distribution Width 14.3, Platelet Count 251, Mean Platelet Volume 8.5L, Immature Granulocyte % (Auto) 0, Neutrophils (%) (Auto) 85H, Lymphocytes (%) (Auto) 9L, Monocytes (%) (Auto) 5, Eosinophils (%) ( Auto) 0, Basophils (%) (Auto) 0, Neutrophils # (Auto) 6.5, Lymphocytes # (Auto) 0.7L, Monocytes # (Auto) 0.4, Eosinophils # (Auto) 0.0, Basophils # (Auto) 0.0, Immature Granulocyte # (Auto) 0.0, Erythrocyte Sedimentation Rate 32H, Sodium Level 137, Potassium Level 3.9, Chloride Level 105, Carbon Dioxide Level 19L, Anion Gap 13, Blood Urea Nitrogen [Pending], Creatinine [Pending], BUN/Creatinine Ratio [Pending], Glucose Level 124H, Calcium Level 8.9, Corrected Calcium 9.5, Magnesium Level [Pending], Total Bilirubin 0.3, Aspartate Amino Transf (AST/SGOT) [Pending], Alanine Aminotransferase (ALT/SGPT) [Pending], Alkaline Phosphatase [Pending], Total Creatine Kinase [Pending], Creatine Kinase MB [Pending], Troponin I [Pending], C-Reactive Protein High Sensitivity 2.74H, B-Type Natriuretic Peptide [Pending], Total Protein 6.4, Albumin 3.3, Thyroid Stimulating Hormone (TSH) [Pending] Assessment/Plan Assessment and Plan 1. Dizziness with weakness--admit and start scopolamine patch and check labs including CBC, CMP, UA, cardiac enzymes 2. Dehydration--admit for IVFs 3. Recent elevated troponin--Type II [place]--check cardiac enzymes 4. Recent UTI--recheck UA 5. Diarrhea--check stool studies 6. Chronic Atrial Fibrillation--rate controlled, unable to tolerate NOAC or even aspirin due to hematuria 7. Hypertension--resume metoprolol--amlodopine DCed at [place] from last hospital stay Admission Diagnosis Admission Status: Observation STEFANO NIEVES DO January 27, 2022 18:34
[2022-01-27 18:35] LABS: ALBUMIN 3.3 GM/DL (3.2-4.5); POTASSIUM 3.9 MMOL/L (3.6-5.0)
[2022-01-27 18:36] LABS: CALCIUM 8.9 MG/DL (8.5-10.1)
[2022-01-27 18:37] LABS: ERYTHROCYTE SEDIMENTATION RATE 32 MM/HR (0-30); TOTAL PROTEIN 6.4 GM/DL (6.4-8.2)
[2022-01-27 18:39] LABS: BILIRUBIN,TOTAL 0.3 MG/DL (0.1-1.0)
[2022-01-27 18:41] LABS: CREATININE SERUM 0.69 MG/DL (0.60-1.30)
[2022-01-27 18:44] LABS: MAGNESIUM 1.7 MG/DL (1.6-2.4)
[2022-01-27 18:52] LABS: CREATINE KINASE MB 2.7 NG/ML (<6.6)
--- NOTE | 2022-01-27 19:31 | Diagnostic Imaging Report ---
EXAMINATION: Chest 2 view. HISTORY: Dyspnea. COMPARISON: None available. FINDINGS: Heart size is mildly enlarged. Pulmonary vasculature is normal. Multiple calcified mediastinal lymph nodes and calcified granulomas within the lungs. No consolidation, pleural effusion or pneumothorax. The osseous structures are intact. IMPRESSION: No acute radiographic abnormality in the chest. Dictated by: Dictated on workstation # [id number]
[2022-01-27 19:58] VITALS: BP 181/84
[2022-01-27] MEDS: PARoxetine 10 MG (PAXIL) TAB PO SCH (21:56)
[2022-01-27 22:44] LABS: BILIRUBIN,URINE NEGATIVE (NEGATIVE); CLARITY,URINE SL CLOUDY; COLOR,URINE YELLOW; GLUCOSE, URINE (UA) NEGATIVE (NEGATIVE); KETONES,URINE NEGATIVE (NEGATIVE); LEUKOCYTE ESTERASE ,URINE 1+ (NEGATIVE); NITRITE,URINE NEGATIVE (NEGATIVE); PROTEIN,URINE 2+ (NEGATIVE)
[2022-01-27 22:50] LABS: BACTERIA,URINE NEGATIVE /HPF; RBC,URINE 25-50 /HPF; SQUAMOUS EPITHELIAL CELL,UR 0-2 /HPF; WBC,URINE 25-50 /HPF
[2022-01-27 23:09] VITALS: BP 171/90
[2022-01-28] VITALS (7 sets, daily range): BP systolic 147–191; BP diastolic 72–91
[2022-01-28] MEDS: NS W/KCL 20 MEQ/L 1,000 ML IV SCH ×2 (02:33→08:27)
[2022-01-28] MEDS: PANTOPRAZOLE 40 MG (PROTONIX) TAB PO SCH (05:36)
[2022-01-28] MEDS: lisINopril 40 MG (PRINIVIL) TABLET PO SCH (08:28)
[2022-01-28] MEDS ORDERED: cefTRIAXone 1 GM PRE-MIX 50 ML IV SCH (09:00)
[2022-01-28] MEDS ORDERED: SCOPOLAMINE PATCH REMOVAL TP ONE (09:00)
[2022-01-28] MEDS ORDERED: KCL 20 MEQ TAB (K-DUR) PO ONE (11:00)
[2022-01-28] MEDS ORDERED: FUROSEMIDE 40 MG/4 ML INJ (LASIX) IVP ONE (11:00)
--- NOTE | 2022-01-28 11:24 | Progress Note ---
Subjective Date Seen by a Provider: January 28, 2022 Time Seen by a Provider: 11:18 Subjective/Events-last exam Fwup weakness, dizziness, dehydration, recent UTI, recent Non-STEMI, chronic atrial fibrillation, Hx of prostate cancer, HTN. Patient states he is not good but can't tell me why. States he was weak when he got up overnight to use the commode. Dizziness is gone. , son and DIL in room. Did discuss with son in private that if patient continues to decline will need NH placement and he understands this but at this time they want to go home and resume HH and look at extra in-home care. Objective Exam Vital Signs Date Time Temp Pulse Resp B/P (MAP) Pulse Ox O2 Delivery O2 Flow Rate FiO2 01/28/22 11:16 36.6 64 18 191/91 (124) 96 Nasal Cannula 2.00 01/28/22 08:00 95 Nasal Cannula 2.00 01/28/22 07:34 36.6 71 18 163/91 (115) 95 Nasal Cannula 2.00 01/28/22 07:00 71 01/28/22 03:06 36.4 91 20 147/72 (97) 94 Nasal Cannula 2.00 01/28/22 01:00 75 01/27/22 23:09 36.8 70 16 171/90 (117) 94 Room Air 01/27/22 20:14 Room Air 01/27/22 19:58 36.6 75 20 181/84 (116) 95 Room Air 01/27/22 19:00 74 01/27/22 18:00 Room Air 01/27/22 17:50 36.8 77 19 182/90 (120) 94 Room Air I & O 01/28/22 07:00 Intake Total 740 ml Output Total 400 ml Balance 340 ml Capillary Refill : General Appearance: No Apparent Distress Neck: Supple Respiratory: Lungs Clear Cardiovascular: Systolic Murmur, Irregularly Irregular Gastrointestinal: normal bowel sounds, non tender, soft Extremity: Non Tender, No Calf Tenderness, No Pedal Edema Neurologic/Psychiatric: Alert Results Lab Laboratory Tests 01/27/22 18:09: White Blood Count 7.6, Red Blood Count 4.00L, Hemoglobin 11.7L, Hematocrit 35L, Mean Corpuscular Volume 88, Mean Corpuscular Hemoglobin 29, Mean Corpuscular Hemoglobin Concent 33, Red Cell Distribution Width 14.3, Platelet Count 251, Mean Platelet Volume 8.5L, Immature Granulocyte % (Auto) 0, Neutrophils (%) (Auto) 85H, Lymphocytes (%) (Auto) 9L, Monocytes (%) (Auto) 5, Eosinophils (%) (Auto) 0, Basophils (%) (Auto) 0, Neutrophils # (Auto) 6.5, Lymphocytes # (Auto) 0.7L, Monocytes # (Auto) 0.4, Eosinophils # (Auto) 0.0, Basophils # (Auto) 0.0, Immature Granulocyte # (Auto) 0.0, Erythrocyte Sedimentation Rate 32H, Sodium Level 137, Potassium Level 3.9, Chloride Level 105, Carbon Dioxide Level 19L, Anion Gap 13, Blood Urea Nitrogen 16, Creatinine 0.69, Estimat Glomerular Filtration Rate 88, BUN/Creatinine Ratio 23, Glucose Level 124H, Calcium Level 8.9, Corrected Calcium 9.5, Magnesium Level 1.7, Total Bilirubin 0.3, Aspartate Amino Transf (AST/SGOT) 23, Alanine Aminotransferase (ALT/SGPT) 13, Alkaline Phosphatase 64, Total Creatine Kinase 44, Creatine Kinase MB 2.7, Troponin I 0.148H, C-Reactive Protein High Sensitivity 2.74H, B-Type Natriuretic Peptide 1593.3H, Total Protein 6.4, Albumin 3.3, Thyroid Stimulating Hormone (TSH) 4.52 01/27/22 21:11: Urine Color YELLOW, Urine Clarity SL CLOUDY, Urine pH 6.0, Urine Specific [place] >=1.030, Urine Protein 2+H, Urine Glucose (UA) NEGATIVE, Urine Ketones NEGATIVE, Urine Nitrite NEGATIVE, Urine Bilirubin NEGATIVE, Urine Urobilinogen 0.2, Urine Leukocyte Esterase 1+H, Urine RBC (Auto) 3+H, Urine RBC 25-50H, Urine WBC 25-50H, Urine Squamous Epithelial Cells 0-2, Urine Renal Epithelial Cells NONE, Urine Crystals NONE, Urine Bacteria NEGATIVE, Urine Casts NONE, Urine Mucus MODERATEH, Urine Culture Indicated YES Assessment/Plan Assessment/Plan Assess & Plan/Chief Complaint 1. Weakness--start PT 2. Dizziness--resolved 3. Recent Non-STEMI--Troponin-I trending down, medical management per patient's wishes 4. Chronic Atrial Fibrillation--rate controlled, unable to tolerate any NOAC or even aspirin due to hematuria 5. 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 Dehydration--improved so will Heplock IV 7. Prostate Cancer--follows with urology in [place], son wondering if his Xtandi could be contributing to his frequent dizzy and weak episodes 8. HTN--lisinopril 40mg and metoprolol 25mg restarted Hopefully home tomorrow if does well with PT--will get SS to give family info on in-home care Clinical Quality Measures Admission Status Admission Dx 1. Dizziness with weakness--admit and start scopolamine patch and check labs including CBC, CMP, UA, cardiac enzymes 2. Dehydration--admit for IVFs 3. Recent elevated troponin--Type II [place]--check cardiac enzymes 4. Recent UTI--recheck UA 5. Diarrhea--check stool studies 6. Chronic Atrial Fibrillation--rate controlled, unable to tolerate NOAC or even aspirin due to hematuria 7. Hypertension--resume metoprolol--amlodopine DCed at [place] from last hospital stay STEFANO ARREAGA DO January 28, 2022 11:24
--- NOTE | 2022-01-28 11:42 | Physical Therapy Evaluation ---
PT Evaluation-General Medical Diagnosis Admission Date January 27, 2022 at 17:16 Medical Diagnosis: dizziness/dehydration/diarrhea Onset Date: January 27, 2022 Therapy Diagnosis Therapy Diagnosis: generalized weakness/debility Height/Weight Height (Feet): 5 Height (Inches): 10.00 Weight (Pounds): 177 Weight (Ounces): 8.0 Precautions Precautions/Isolations: Fall Prevention, Standard Precautions Referral Physician: Lizbeth Reason for Referral: Evaluation/Treatment Medical History Pertinent Medical History: Atrial Fib, HTN, [place] Current History ER secondary to dizziness/weakness Reviewed History: Yes Social History Home: Single Level Current Living Status: Spouse Prior Prior Level of Function SCALE: Activities may be completed with or without assistive devices. 3-Oxclxxngwj-knsvefd completes the activity by him/herself with no assistance from a helper. 5-Set-up or Clean-up Assistance-helper sets up or cleans up; patient completes activity. [place] assists only prior to or following the activity. 4-Supervision or Touching Assistance-helper provides verbal cues and/or touching/steadying and/or contact guard assistance as patient completes activity. Assistance may be provided throughout the activity or intermittently. 3-Partial/Moderate Assistance-helper does LESS THAN HALF the effort. [place] lifts, holds or supports trunk or limbs, but provides less than half the effort. 2-Substantial/Maximal Assistance-helper does MORE THAN HALF the effort. [place] lifts or holds trunk or limbs and provides more than half the effort. 5-Iuiexhrxk-jbicwf does ALL the effort. Patient does none of the effort to complete the activity. Or, the assistance of 2 or more helpers is required for the patient to complete the activity. If activity was not attempted, code reason: 7-Patient Refused. 9-Not Applicable-not attempted and the patient did not perform the activity before the current illness, exacerbation or injury. 10-Not Attempted due to Environmental Limitations-(lack of equipment, weather restraints, etc.). 88-Not Attempted due to Medical Conditions or Safety Concerns. Bed Mobility: 6 Transfers (B,C,W/C): 6 Gait: 6 Indoor Mobility (Ambulation): Independent Stairs: Independent Prior Devices Use: Walker Prior Device Use: cane and upright 4WW PT Evaluation-Current Subjective Patient and family agree to PT. Objective Patient Orientation: Normal For Age Attachments: Oxygen, [place] Catheter, IV ROM/Strength ROM Lower Extremities bilateral LE WFL Strength Lower Extremities 4-/5 grossly bilateral LE Sensory Vision: Blind Legally Hearing: Impaired Transfers Roll Left to Right (QC): 4 Sit to Lying (QC): 3 Lying to Sitting/Side of Bed(Q: 3 Sit to Stand (QC): 3 Chair/Fhz-vo-Qlopw Xfer(QC): 3 Toilet Transfer (QC): 3 Gait Does the Patient Walk?: Yes Mode of Locomotion: Walk Anticipated Mode of Locomotion: Walk Walk 10 feet (QC): 3 Walk 50 ft with 2 Turns(QC): 3 Walk 150 ft (QC): 3 Distance: 150' Gait Assistive Device: FWW Comments/Gait Description unsteady with PT correct Balance Sitting Static: Normal Sitting Dynamic: Normal Standing Static: Fair Standing Dynamic: Fair Assessment/Needs Increase SOA with minimal activity O2 2L. Patient displays moderate weakness and debility. Family very attentive with care. Increase activity as tolerated by patient. Rehab Potential: Fair PT Half-Way Goals Batching Operator Goals PT Batching Operator Goals Time Frame: Feb 05, 2022 Roll Left & Right (QC): 6 Sit to Lying (QC): 6 Lying-Sitting on Side/Bed(QC): 6 Sit to Stand (QC): 6 Chair/Wlx-no-Jzwhl Xfer(QC): 6 Toilet Transfer (QC): 6 Walk 10 feet (QC): 6 Walk 50ft with 2 Turns (QC): 6 Walk 150 ft (QC): 6 PT Plan Problem List Problem List: Activity Tolerance, Functional Strength, Safety, Balance, Gait, Transfer, Bed Mobility Treatment/Plan Treatment Plan: Continue Plan of Care Treatment Plan: Bed Mobility, Education, Functional Activity Nesha, Functional Strength, Gait, Safety, Therapeutic Exercise, Transfers Treatment Duration: Feb 05, 2022 Frequency: 6 times per week Estimated Hrs Per Day: .25 hour per day Patient and/or Family Agrees t: Yes Time/GCodes Time In: 1120 Time Out: 1136 Total Billed Treatment Time: 16 Total Billed Treatment 1 visit EVModC 16 min LUIS MIGUEL MA PT January 28, 2022 11:42
[2022-01-28] MEDS: PARoxetine 10 MG (PAXIL) TAB PO SCH (19:44)
[2022-01-28] MEDS: hydrOXYzine (ATARAX) 10 MG TAB PO PRN (21:50)
[2022-01-29] MEDS: hydrALAZINE (APRESOLINE) 25 MG TAB PO PRN ×2 (02:12→15:27)
[2022-01-29 02:19] VITALS: BP 192/101
[2022-01-29 03:16] VITALS: BP 126/58
[2022-01-29 05:51] LABS: POTASSIUM 4.3 MMOL/L (3.6-5.0)
[2022-01-29 05:52] LABS: CALCIUM 8.4 MG/DL (8.5-10.1)
[2022-01-29 05:57] LABS: CREATININE SERUM 0.76 MG/DL (0.60-1.30)
[2022-01-29] MEDS: hydrOXYzine (ATARAX) 10 MG TAB PO PRN (06:00)
[2022-01-29] MEDS: PANTOPRAZOLE 40 MG (PROTONIX) TAB PO SCH (06:00)
[2022-01-29] MEDS: KCL 20 MEQ TAB (K-DUR) PO SCH (06:00)
[2022-01-29 07:44] VITALS: BP 126/76
[2022-01-29] MEDS ORDERED: LVF250T PO (07:55)
[2022-01-29] MEDS ORDERED: PARO10TA3 PO (07:55)
[2022-01-29] MEDS: lisINopril 40 MG (PRINIVIL) TABLET PO SCH (09:32)
[2022-01-29] MEDS: FUROSEMIDE 40 MG (LASIX) TAB PO SCH (09:32)
--- NOTE | 2022-01-29 10:37 | Physical Therapy Daily Note ---
PT Daily Note-Current Subjective Pt in bed, agreeble with encouragement. Pt very anxious, stating, "I just feel like it gets tight" across chest with activity. Pt's RR increased, mouthbreathing despite max cues for pursed-lip breathing from this therapist and family. Mental Status Patient Orientation: Person, Confused (Pt reporting he was in his home) Attachments: O[place] Catheter, IV Transfers SCALE: Activities may be completed with or without assistive devices. 3-Kwbcidxhkh-slfselr completes the activity by him/herself with no assistance from a helper. 5-Set-up or Clean-up Assistance-helper sets up or cleans up; patient completes activity. [place] assists only prior to or following the activity. 4-Supervision or Touching Assistance-helper provides verbal cues and/or touching/steadying and/or contact guard assistance as patient completes activity. Assistance may be provided throughout the activity or intermittently. 3-Partial/Moderate Assistance-helper does LESS THAN HALF the effort. [place] lifts, holds or supports trunk or limbs, but provides less than half the effort. 2-Substantial/Maximal Assistance-helper does MORE THAN HALF the effort. [place] lifts or holds trunk or limbs and provides more than half the effort. 7-Aeolyvjpe-jenqvr does ALL the effort. Patient does none of the effort to complete the activity. Or, the assistance of 2 or more helpers is required for the patient to complete the activity. If activity was not attempted, code reason: 7-Patient Refused. 9-Not Applicable-not attempted and the patient did not perform the activity before the current illness, exacerbation or injury. 10-Not Attempted due to Environmental Limitations-(lack of equipment, weather restraints, etc.). 88-Not Attempted due to Medical Conditions or Safety Concerns. Sit to Lying (QC): 3 Lying to Sitting/Side of Bed(Q: 4 Sit to Stand (QC): 3 Weight Bearing Right Lower Extremity: Right Full Weight Bearing Left Lower Extremity: Left Full Weight Bearing Gait Training Does the Patient Walk?: Yes Distance: 20 Walk 10 feet (QC): 3 Gait Persons Needed: 2 Gait Assistive Device: FWW Pt ambulated 20' x 1, 10' x 1 with FWW, min-mod A x 1 + 1 to navigate O2 tank, move obstacles from path. Pt stated he needed to sit and unsafely moved to sit on BSC, mod A x 1 to safely sit. After brief rest, returned to bed with O2 in situ. Treatments Ambulation and transfers. In bed with O2 in situ, needs met. Assessment Current Status: Poor Progress Pt with increased RR, more impulsive. Sats greater than 94% on 4L O2 with activity. PT Usp Goals Finisher Hand Goals PT Finisher Hand Goals Time Frame: Feb 05, 2022 Roll Left & Right (QC): 6 Sit to Lying (QC): 6 Lying-Sitting on Side/Bed(QC): 6 Sit to Stand (QC): 6 Chair/Fwv-jn-Buizo Xfer(QC): 6 Toilet Transfer (QC): 6 Walk 10 feet (QC): 6 Walk 50ft with 2 Turns (QC): 6 Walk 150 ft (QC): 6 PT Plan Problem List Problem List: Activity Tolerance, Functional Strength, Safety, Balance, Gait, Transfer, Bed Mobility Treatment/Plan Treatment Plan: Continue Plan of Care Treatment Plan: Bed Mobility, Education, Functional Activity Nesha, Functional Strength, Gait, Safety, Therapeutic Exercise, Transfers Treatment Duration: Feb 05, 2022 Frequency: 6 times per week Estimated Hrs Per Day: .25 hour per day Patient and/or Family Agrees t: Yes Time/GCodes Time In: 1005 Time Out: 1029 Total Billed Treatment Time: 24 Total Billed Treatment 1, FA x 24' GI NEWBERRY DPT January 29, 2022 10:37
--- NOTE | 2022-01-29 10:42 | Progress Note - Hospitalist ---
Subjective HPI/CC On Admission Date Seen by Provider: January 29, 2022 Time Seen by Provider: 10:35 Subjective/Events-last exam Pt reports feeling ok but had a rough night. Was up with diarrhea and got very short of breath when getting up. Vitals stable throughout this and family felt he was hyperventilating. He does relay worry regarding episodes as he has to go to the bathroom but it takes a while to get up. Did better with hydroxyzine addition though. Family concerned about his ability to DC home. Objective Exam Vital Signs Vital Signs Date Time Temp Pulse Resp B/P (MAP) Pulse Ox O2 Delivery O2 Flow Rate FiO2 01/29/22 08:20 Nasal Cannula 3.00 01/29/22 08:19 92 01/29/22 07:44 36.7 86 18 126/76 (93) Capillary Refill : General Appearance: No Apparent Distress, Chronically ill, Thin Respiratory: Lungs Clear, No Respiratory Distress Cardiovascular: Regular Rate, Rhythm, No Murmur Gastrointestinal: Normal Bowel Sounds, Non Tender, Soft Neurologic/Psychiatric: Alert, Oriented x3, Normal Mood/Affect Results/Procedures Lab Laboratory Tests 01/29/22 05:19 Patient resulted labs reviewed. Assessment/Plan Assessment and Plan Assess & Plan/Chief Complaint 1. Weakness--Continue PT, did well yesterday but worsened overnight with dasilva sfers 2. Dizziness--resolved 3. Recent Non-STEMI--Troponin-I trending down, medical management per patient's wishes, continue home meds 4. Chronic Atrial Fibrillation--rate controlled, unable to tolerate any NOAC or even aspirin due to hematuria 5. 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 Dehydration--resolved 7. Prostate Cancer--follows with urology in [place], son wondering if his Xtandi could be contributing to his frequent dizzy and weak episodes- defer to Urology 8. HTN--lisinopril 40mg and metoprolol 25mg 9. Anxiety- Hydroxyzine added and did well with that, will continue SANTIAGO TAVERAS MD January 29, 2022 10:42
[2022-01-29] MEDS ORDERED: LOPERAMIDE 2 MG (IMODIUM) TABLET PO PRN (10:45)
[2022-01-29 11:47] VITALS: BP 159/83
[2022-01-29 15:55] VITALS: BP 194/91
[2022-01-29 19:45] VITALS: BP 180/87
[2022-01-29] MEDS: PARoxetine 10 MG (PAXIL) TAB PO SCH (20:02)
[2022-01-30] VITALS (9 sets, daily range): BP systolic 132–182; BP diastolic 68–99
[2022-01-30] MEDS: hydrOXYzine (ATARAX) 10 MG TAB PO PRN ×3 (00:03→20:11)
[2022-01-30] MEDS: hydrALAZINE (APRESOLINE) 25 MG TAB PO PRN ×2 (00:03→16:03)
[2022-01-30] MEDS: KCL 20 MEQ TAB (K-DUR) PO SCH (05:27)
[2022-01-30] MEDS: PANTOPRAZOLE 40 MG (PROTONIX) TAB PO SCH (05:27)
[2022-01-30 05:30] LABS: HEMATOCRIT 34 % (40-54); MEAN CORPUSCULAR HEMOGLOBIN 29 pg (25-34); MEAN CORPUSCULAR HGB CONC 33 g/dL (32-36); MEAN CORPUSCULAR VOLUME 90 fL (80-99); MEAN PLATELET VOLUME 8.8 fL (9.0-12.2); PLATELET COUNT 164 10^3/uL (130-400); WHITE BLOOD COUNT 7.5 10^3/uL (4.3-11.0)
[2022-01-30 05:39] LABS: POTASSIUM 3.8 MMOL/L (3.6-5.0)
[2022-01-30 05:41] LABS: CALCIUM 8.5 MG/DL (8.5-10.1)
[2022-01-30 05:45] LABS: CREATININE SERUM 0.71 MG/DL (0.60-1.30)
[2022-01-30] MEDS: lisINopril 40 MG (PRINIVIL) TABLET PO SCH (08:48)
[2022-01-30] MEDS: FUROSEMIDE 40 MG (LASIX) TAB PO SCH (08:48)
--- NOTE | 2022-01-30 11:47 | Progress Note - Hospitalist ---
Subjective HPI/CC On Admission Date Seen by Provider: January 30, 2022 Subjective/Events-last exam Pt reports doing better today. breathing easier. RN reports he is still hyperventilating some with standing but overall doing ok. asks information about comfort care. We discussed hospice/comfort care measures and NH placement. reports that she will discuss this with her family and get back to me. Objective Exam Vital Signs Vital Signs Date Time Temp Pulse Resp B/P (MAP) Pulse Ox O2 Delivery O2 Flow Rate FiO2 01/30/22 11:32 36.6 77 18 172/97 (122) 96 Nasal Cannula 4.00 Capillary Refill : General Appearance: No Apparent Distress, WD/WN Respiratory: Lungs Clear, No Respiratory Distress Cardiovascular: Regular Rate, Rhythm, No Murmur Neurologic/Psychiatric: Alert, Oriented x3 Results/Procedures Lab Laboratory Tests 01/30/22 05:13 Patient resulted labs reviewed. Assessment/Plan Assessment and Plan Assess & Plan/Chief Complaint 1. Weakness--PT/OT, decreased mobility yesterday with PT- will need NH placement upon discharge 2. Dizziness--resolved 3. Recent Non-STEMI--Troponin-I trending down, medical management per patient's wishes, continue home meds 4. Chronic Atrial Fibrillation--rate controlled, unable to tolerate any NOAC or even aspirin due to hematuria 5. 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 Dehydration--resolved 7. Prostate Cancer--follows with urology in [place], son wondering if his Xtandi could be contributing to his frequent dizzy and weak episodes- defer to Urology 8. HTN--lisinopril 40mg and metoprolol 25mg 9. Anxiety- Hydroxyzine added and did well with that, will continue 10. Discharge planning- Discussed range of options with and patient including NHP and hospice care and they will talk to their kids and report back SANTIAGO TAVERAS MD January 30, 2022 11:47
[2022-01-30] MEDS ORDERED: LORazepam ORAL CONCENTRATE 2 MG/ML 30 ML (ATIVAN) PO PRN (15:15)
[2022-01-30] MEDS: PARoxetine 10 MG (PAXIL) TAB PO SCH (20:12)
[2022-01-30] MEDS ORDERED: morphine INJ 4 MG/ML 1 ML (VIAL/SYRINGE) IVP PRN (20:45)
[2022-01-30] MEDS ORDERED: morphine (ROXINOL) 10 MG/0.5 ML oral conc 0.5 ML PO PRN (20:45)
[2022-01-30] MEDS ORDERED: HYDROcodone/APAP 5 MG/325 MG (LORTAB) TAB PO PRN (21:00)
[2022-01-30] MEDS ORDERED: hydrOXYzine (ATARAX) 10 MG TAB PO PRN (21:00)
[2022-01-30] MEDS ORDERED: morphine INJ 4 MG/ML 1 ML (VIAL/SYRINGE) IV PRN (23:30)
[2022-01-30] MEDS ORDERED: ONDANSETRON 4 MG/2 ML (SDV) Z0FRAN IVP PRN (23:30)
[2022-01-30] MEDS ORDERED: LORazepam INJ 2 MG/ML (ATIVAN) VIAL IVP PRN (23:30)
[2022-01-30] MEDS ORDERED: ARTIFICAL TEARS 0.4 ML UNIT DOSE (REFRESH PLUS) OU PRN (23:30)
[2022-01-30] MEDS ORDERED: BISACODYL 10 MG SUPP (DULCOLAX) PR PRN (23:30)
[2022-01-30] MEDS ORDERED: ACETAMINOPHEN 650 MG SUPP (TYLENOL) PR PRN (23:30)
[2022-01-30] MEDS ORDERED: SALIVA STIMULANT MOUTH SPRAY (BIOTENE) 1.5 OZ MM PRN (23:30)
[2022-01-30] MEDS ORDERED: PROMETHAZINE INJ 25 MG/ML (PHENERGAN) AMP IVP PRN (23:30)
[2022-01-30] MEDS ORDERED: GLYCOPYRROLATE 0.2 MG/ML (ROBINUL) 2 ML VIAL IV PRN (23:30)
[2022-01-30] MEDS ORDERED: RT-ALBUTEROL/IPRATROPIUM 3 ML (DUONEB) VIAL INH PRN (23:30)
== END 2022-01-31 05:15 | disposition expired ==
LOC: 4TH 17:16
PROVIDERS: ADMIT Family Medicine; ATTEND Family Medicine
DX: I11.0 Hypertensive heart disease with heart failure (principal); I50.33 Acute on chronic diastolic (congestive) heart failure; I21.A1 Myocardial infarction type 2; R53.1 Weakness; E86.0 Dehydration; N39.0 Urinary tract infection, site not specified; R19.7 Diarrhea, unspecified; R31.9 Hematuria, unspecified; I48.20 Chronic atrial fibrillation, unspecified; C61 Malignant neoplasm of prostate; Z79.82 Long term (current) use of aspirin; Z79.899 Other long term (current) drug therapy
CPT/HCPCS: 36415; 71046; 80048; 80053; 81000; 82550; 82553; 83735; 83880; 84443; 84484; 85025; 85027; 85652; 86141; 87088; 93005; 94760; 96361; 96365; 96366; 96375; 96376; G0378